=== PATIENT | male | born 1950 | race Caucasian/White ===

== ENCOUNTER 2016-05-07 10:14 | Inpatient (IN) | payer OTHER ==
[2016-05-07] MEDS ORDERED: LIDOCAINE 1% 5 ML SDV ONE (10:22)
[2016-05-07] MEDS ORDERED: ERTAPENEM 1 GM in NS 100 ML IV ONE (10:30)
[2016-05-07] MEDS ORDERED: MIDAZOLAM 2 MG/2 ML VIAL ONE (10:45)
[2016-05-07 10:48] LABS: % IMMATURE GRANULYOCYTES 0.2 % (0.0-1.1); ABSOLUTE IMMATURE GRANULOCYTES 0.02 10^3/uL (0.00-0.10); ADD DIFF? NO; ADD MORPH? NO; ADD SCAN? NO; ATYPICAL LYMPHOCYTE FLAG 0 (0-99); FRAGMENT RBC FLAG 0 (0-99); HEMATOCRIT 45.6 % (40.0-51.0); HEMOGLOBIN 15.4 g/dL (13.7-17.5); LEFT SHIFT FLG 0 (0-99); LIPEMIA HEMOLYSIS FLAG 90 (0-99); MEAN CELL HEMOGLOBIN 29.4 pg (27.9-34.1); MEAN CELL HEMOGLOBIN CONCENTR. 33.8 g/dL (32.4-36.7); PLATELET CLUMPS FLAG 0 (0-99); PLATELET COUNT 226 10^3/uL (150-400); RED BLOOD CELL COUNT 5.24 10^6/uL (4.40-6.38)
[2016-05-07] MEDS ORDERED: LIDOCAINE 1% 5 ML SDV ID PRN (10:52)
[2016-05-07] MEDS ORDERED: LR 1,000 ML IV ONE (10:52)
[2016-05-07] MEDS ORDERED: REMIFENTANIL HCL 1 MG VIAL ONE ×2 (10:55→13:55)
[2016-05-07] MEDS ORDERED: PROPOFOL/EMULSION 500 MG/50 ML BOTTLE IV ONE ×2 (10:56→13:08)
[2016-05-07] MEDS ORDERED: fentaNYL 100 MCG/2 ML INJ ONE ×5 (10:56→15:55)
[2016-05-07] MEDS ORDERED: ONDANSETRON 4 MG/2 ML VIAL ONE (11:03)
[2016-05-07] MEDS ORDERED: DEXAMETHASONE 4 MG/ML VIAL ONE (11:04)
[2016-05-07 11:05] LABS: ANION GAP 11 mEq/L (8-16); CALCIUM 9.1 mg/dL (8.5-10.4); CARBON DIOXIDE 24 mEq/l (22-31); CHLORIDE 106 mEq/L (97-110); CREATININE 1.1 mg/dL (0.7-1.3); GLOMERULAR FILTRATION RATE > 60; GLUCOSE 118 mg/dL (70-100); POTASSIUM 4.3 mEq/L (3.5-5.2); SODIUM 141 mEq/L (134-144)
[2016-05-07] MEDS ORDERED: BUPIVACAINE 0.5% 30 ML SDV ONE (11:05)
[2016-05-07] MEDS ORDERED: LIDOCAINE 2% 5 ML SDV ONE (11:07)
[2016-05-07] MEDS ORDERED: ROCURONIUM 50 MG/5 ML VIAL ONE ×2 (11:08→13:23)
[2016-05-07] MEDS ORDERED: PROPOFOL 200 MG/20 ML VIAL ONE ×2 (13:55→13:56)
[2016-05-07] MEDS ORDERED: ALBUMIN 5% 250 ML BOTTLE IV ONE (14:11)
[2016-05-07] MEDS ORDERED: fentaNYL 250 MCG/5 ML INJ ONE (14:50)
[2016-05-07 14:53] LABS: % IMMATURE GRANULYOCYTES 0.8 % (0.0-1.1); ABSOLUTE IMMATURE GRANULOCYTES 0.09 10^3/uL (0.00-0.10); ADD DIFF? NO; ADD MORPH? NO; ADD SCAN? NO; ATYPICAL LYMPHOCYTE FLAG 0 (0-99); FRAGMENT RBC FLAG 0 (0-99); HEMATOCRIT 37.9 % (40.0-51.0); HEMOGLOBIN 12.8 g/dL (13.7-17.5); LEFT SHIFT FLG 0 (0-99); LIPEMIA HEMOLYSIS FLAG 90 (0-99); MEAN CELL HEMOGLOBIN 30.4 pg (27.9-34.1); MEAN CELL HEMOGLOBIN CONCENTR. 33.8 g/dL (32.4-36.7); MEAN PLATELET VOLUME 9.6 fL (8.7-11.7); PLATELET CLUMPS FLAG 0 (0-99); PLATELET COUNT 223 10^3/uL (150-400); RED BLOOD CELL COUNT 4.21 10^6/uL (4.40-6.38)
[2016-05-07] MEDS ORDERED: GLYCOPYRROLATE 0.2 MG/1 ML VIAL ONE ×2 (14:59)
[2016-05-07] MEDS ORDERED: KETOROLAC 30 MG/1 ML SDV ONE (15:05)
--- NOTE | 2016-05-07 15:16 | POSTOPPROG ---
Post Op Note Date of Operation: 05/07/16 Surgeon: Oc Tony Director Of Music Therapy: Dee Varghese PA-C, TIGIST Oro MS, Mark Clifford MS Anesthesiologist: Jaleel Ojeda Anesthesia: GET(General Endotracheal) Pre-op Diagnosis: Rectal dysplasia, parastomal hernia, Hx of subtotal colectomy for UC Post-op Diagnosis: same Indication: high grade dysplasia of rectal mass, parastomal hernia Procedure: laparascopy, laparotomy, APR, parastomal hernia repair Findings: long thick rectal stump Inf/Abcess present in the surg proc area at time of surgery?: No EBL: 500-1000 Drains: Manolo Guillen Specimen(s): rectal stump to pathology
[2016-05-07] MEDS ORDERED: ONDANSETRON 4 MG/2 ML VIAL IVP PRN (15:17)
[2016-05-07] MEDS ORDERED: NALOXONE HCL 0.4 MG/ML INJ IVP PRN (15:23)
[2016-05-07] MEDS ORDERED: MEPERIDINE 25 MG/ML SYR ONE (15:27)
[2016-05-07] MEDS: HYDROmorphONE/DILAUDID 6 MG/30 ML PCA IV PRN (17:38)
[2016-05-07] MEDS: D5W 1/2 NS W/ 20 KCl/L 1,000 ML IV SCH ×2 (17:43→23:52)
[2016-05-07] MEDS: METOCLOPRAMIDE 10 MG/2 ML VIAL IVP SCH ×2 (17:47→23:53)
[2016-05-07] MEDS: ACETAMINOPHEN 325 MG TAB PO PRN (23:52)
[2016-05-08] MEDS: HYDROmorphONE/DILAUDID 6 MG/30 ML PCA IV PRN ×5 (00:35→23:35)
[2016-05-08] MEDS: METOCLOPRAMIDE 10 MG/2 ML VIAL IVP SCH ×4 (05:02→23:25)
[2016-05-08 05:19] LABS: HEMOGLOBIN 10.6 g/dL (13.7-17.5)
[2016-05-08 05:38] LABS: ANION GAP 9 mEq/L (8-16); CALCIUM 7.6 mg/dL (8.5-10.4); CARBON DIOXIDE 22 mEq/l (22-31); CHLORIDE 105 mEq/L (97-110); CREATININE 1.1 mg/dL (0.7-1.3); GLOMERULAR FILTRATION RATE > 60; GLUCOSE 137 mg/dL (70-100); POTASSIUM 4.7 mEq/L (3.5-5.2); SODIUM 136 mEq/L (134-144)
[2016-05-08] MEDS: D5W 1/2 NS W/ 20 KCl/L 1,000 ML IV SCH ×3 (06:20→22:11)
--- NOTE | 2016-05-08 09:50 | SOAPPROG ---
SOAP Progress Note Assessment/Plan: Assessment/Plan: 65 Y M s/p APR, parastomal hernia reapir, POD#0. Fever overnight. Now resolved. Seen by Dr. Tony late last night for this. OOB. IS. +ileostomy function and bowel sounds. No ileus. Clear diet today. May start PO pain meds PRN. Wean from TECHNICAL SALES REPRESENTATIVE as tolerated. Continue mar cath x 1 week for bladder decompression given proximity and adhesions of rectal stump to bladder. Continue IV abx for possible contamination. S: Waves of pain. TECHNICAL SALES REPRESENTATIVE helping. O: alert, nad ctab anteriorly rrr +BS, abd softly bloated, obese. ileostomy pink, +stool contents, wound well dressed without saturation. 05/08/16 09:44 Objective: Vital Signs Temp Pulse Resp BP Pulse Ox 36.8 C 77 12 108/59 L 94 05/08/16 07:14 05/08/16 07:14 05/08/16 07:14 05/08/16 07:14 05/08/16 07:14 Laboratory Results 05/08/16 04:17 05/08/16 04:17 05/07/16 05/08/16 05/09/16 05:59 05:59 05:59 Intake Total 1800 Output Total 2370 Balance -570 ICD10 Worksheet Patient Problems: Problems Problem Status Onset Dysplastic polyp of rectum Acute - ICD10 Problem Qualifiers (1) Dysplastic polyp of rectum
[2016-05-08] MEDS: ACETAMINOPHEN 325 MG TAB PO PRN ×2 (18:31→23:25)
[2016-05-09] MEDS: METOCLOPRAMIDE 10 MG/2 ML VIAL IVP SCH ×3 (05:18→18:05)
[2016-05-09] MEDS: ACETAMINOPHEN 325 MG TAB PO PRN ×2 (05:18→22:15)
[2016-05-09] MEDS: D5W 1/2 NS W/ 20 KCl/L 1,000 ML IV SCH ×3 (06:07→21:25)
[2016-05-09] MEDS: HYDROmorphONE/DILAUDID 6 MG/30 ML PCA IV PRN ×3 (06:14→22:18)
[2016-05-09] MEDS ORDERED: traZODone 50 MG TAB PO PRN (07:59)
[2016-05-09] MEDS ORDERED: METAXALONE 800 MG TAB PO PRN (07:59)
[2016-05-09] MEDS ORDERED: ZOLPIDEM TARTRATE 5 MG TAB PO PRN (07:59)
[2016-05-09] MEDS ORDERED: DICYCLOMINE 10 MG CAP PO PRN ×2 (07:59→09:32)
[2016-05-09] MEDS ORDERED: AMITRIPTYLINE HCL 50 MG TAB PO PRN (07:59)
--- NOTE | 2016-05-09 08:07 | SOAPPROG ---
SOAP Progress Note Assessment/Plan: Assessment/Plan: # fever - white count not done today, reordered cbc - patient doing okay this morning, will monitor temperature for now OK to advance to regular diet may use his cpap for sleep S: waking up every 15 mins during night (d/t sleep apnea, not wearing cpap) pain well controlled, (-) n/v (-) chest pain Had fever last night til early this morning (37.9 this morning) Other than that no other complaints O: Gen: awake, concscious, coherent HEENT: mmm chest: ctab b/l Abd: wounds clean and dry, (+) bowel on ostomy bag, non-tender Ext: (?) edema 05/09/16 08:03 05/09/16 08:09 05/09/16 08:10 05/09/16 08:12 05/09/16 08:13 Objective: Vital Signs Temp Pulse Resp BP Pulse Ox 37.9 C 80 18 116/59 L 95 05/09/16 05:59 05/09/16 06:00 05/09/16 06:00 05/09/16 06:00 05/09/16 06:00 Laboratory Results 05/09/16 04:44 05/08/16 04:17 05/08/16 05/09/16 05/10/16 05:59 05:59 05:59 Intake Total 1800 550 Output Total 1550 4237 Zafhpog -279 -5318 ICD10 Worksheet Patient Problems: Problems Problem Status Onset Dysplastic polyp of rectum Acute
[2016-05-09] MEDS: ENOXAPARIN 40 MG/0.4 ML SYR SC SCH (08:41)
[2016-05-09] MEDS: CYANO/VITAMIN B12 1000 MCG TAB PO SCH (08:41)
[2016-05-09] MEDS ORDERED: NON-FORMULARY NEW DRUG (Metformin Hcl [Metformin Hcl Er] 500 MG) PO SCH (09:00)
[2016-05-09 09:06] LABS: % IMMATURE GRANULYOCYTES 0.4 % (0.0-1.1); ABSOLUTE IMMATURE GRANULOCYTES 0.03 10^3/uL (0.00-0.10); ADD DIFF? NO; ADD MORPH? NO; ADD SCAN? NO; ATYPICAL LYMPHOCYTE FLAG 0 (0-99); FRAGMENT RBC FLAG 0 (0-99); HEMATOCRIT 30.8 % (40.0-51.0); HEMOGLOBIN 9.9 g/dL (13.7-17.5); LEFT SHIFT FLG 0 (0-99); LIPEMIA HEMOLYSIS FLAG 80 (0-99); MEAN CELL HEMOGLOBIN 30.1 pg (27.9-34.1); MEAN CELL HEMOGLOBIN CONCENTR. 32.1 g/dL (32.4-36.7); MEAN CELL VOLUME 93.6 fL (81.5-99.8); MEAN PLATELET VOLUME 9.6 fL (8.7-11.7); PLATELET CLUMPS FLAG 0 (0-99); PLATELET COUNT 180 10^3/uL (150-400); RED BLOOD CELL COUNT 3.29 10^6/uL (4.40-6.38); RED CELL DISTRIBUTION WIDTH 13.4 % (11.5-15.2)
[2016-05-09] MEDS: BLUE PO SCH (10:54)
[2016-05-09] MEDS: MTH PO SCH (10:54)
[2016-05-09] MEDS: SOD PHOS PO SCH (10:54)
[2016-05-09] MEDS: PHEN PO SCH (10:54)
[2016-05-09] MEDS: HYOS PO SCH (10:54)
--- NOTE | 2016-05-09 23:45 | SOAPPROG ---
SOAP Progress Note Assessment/Plan: Assessment: TEMP DOWN/ WOUND OK/ STOMA OK/ ABD SOFT AND NONTENDER/ TOLERATING PO WELL PATH PENDING Plan:ADVANCE DIET/ CONTINUE RESP RX 05/09/16 23:44 Objective: Vital Signs Temp Pulse Resp BP Pulse Ox 38.2 C 88 14 118/63 95 05/09/16 20:00 05/09/16 20:00 05/09/16 20:00 05/09/16 20:00 05/09/16 20:00 Laboratory Results 05/09/16 04:44 05/08/16 04:17 05/08/16 05/09/16 05/10/16 05:59 05:59 05:59 Intake Total 8845 228 2761 Output Total 8676 1884 1538 Balance -570 -2930 -5 ICD10 Worksheet Patient Problems: Problems Problem Status Onset Dysplastic polyp of rectum Acute
[2016-05-10] MEDS: METOCLOPRAMIDE 10 MG/2 ML VIAL IVP SCH ×4 (00:43→18:13)
[2016-05-10] MEDS: HYDROmorphONE/DILAUDID 6 MG/30 ML PCA IV PRN ×3 (06:24→22:44)
[2016-05-10] MEDS: metFORMIN SR 500 MG TAB PO SCH (08:50)
[2016-05-10] MEDS: CYANO/VITAMIN B12 1000 MCG TAB PO SCH (08:50)
[2016-05-10] MEDS: ENOXAPARIN 40 MG/0.4 ML SYR SC SCH (08:51)
[2016-05-10] MEDS: PHEN PO SCH (08:51)
[2016-05-10] MEDS: HYOS PO SCH (08:51)
[2016-05-10] MEDS: MTH PO SCH (08:51)
[2016-05-10] MEDS: BLUE PO SCH (08:51)
[2016-05-10] MEDS: SOD PHOS PO SCH (08:51)
--- NOTE | 2016-05-10 09:31 | SOAPPROG ---
SOAP Progress Note Assessment/Plan: Assessment/Plan: # fever resolved Plan Home in 1-2 days, pt trying to set up home support of friends as he lives alone , awaiting hospital bed for home S: slept better last night pain well controlled, (-) n/v (-) chest pain Had fever last night til early this morning (37.9 this morning) Other than that no other complaints O: Gen: awake, concscious, coherent HEENT: mmm chest: ctab b/l Abd: wounds clean and dry, (+) bowel on ostomy bag, non-tender 05/09/16 08:03 05/09/16 08:09 05/09/16 08:10 05/09/16 08:12 05/09/16 08:13 05/10/16 09:29 Objective: Vital Signs Temp Pulse Resp BP Pulse Ox 36.9 C 78 14 134/59 H 94 05/10/16 08:00 05/10/16 08:00 05/10/16 08:00 05/10/16 08:00 05/10/16 08:00 Laboratory Results 05/09/16 04:44 05/08/16 04:17 05/09/16 05/10/16 05/11/16 05:59 05:59 05:59 Intake Total 550 3019 800 Output Total 5118 7192 1102 Balance -2930 -291 -305 ICD10 Worksheet Patient Problems: Problems Problem Status Onset Dysplastic polyp of rectum Acute
[2016-05-10] MEDS: D5W 1/2 NS W/ 20 KCl/L 1,000 ML IV SCH (11:57)
[2016-05-10] MEDS: CYCLOBENZAPRINE 10 MG TAB PO SCH ×2 (15:34→21:29)
[2016-05-10] MEDS: ACETAMINOPHEN 325 MG TAB PO PRN (18:21)
[2016-05-11] MEDS: METOCLOPRAMIDE 10 MG/2 ML VIAL IVP SCH ×5 (00:01→22:40)
--- NOTE | 2016-05-11 07:40 | SOAPPROG ---
SOAP Progress Note Assessment/Plan: Assessment: TEMP DOWN/ WOUND OK/ STOMA OK/ ABD SOFT AND NONTENDER/ TOLERATING PO WELL PATH PENDING Plan:ADVANCE DIET/ CONTINUE RESP RX 05/09/16 23:44 05/11/16 07:38 steadily improving/ afebrile/ wounds both clean/ ostomy function good/ path still pending/ home 1-2 days Objective: Vital Signs Temp Pulse Resp BP Pulse Ox 37.4 C 79 16 96/50 L 92 05/11/16 07:22 05/11/16 07:22 05/11/16 07:22 05/11/16 07:22 05/11/16 07:22 Laboratory Results 05/09/16 04:44 05/08/16 04:17 05/10/16 05/11/16 05/12/16 05:59 05:59 06:59 Intake Total 6481 0157 Output Total 5416 5225 300 Balance -291 -97 -300 ICD10 Worksheet Patient Problems: Problems Problem Status Onset Dysplastic polyp of rectum Acute
[2016-05-11] MEDS: ACETAMINOPHEN 325 MG TAB PO PRN (07:51)
[2016-05-11] MEDS: CYCLOBENZAPRINE 10 MG TAB PO SCH ×3 (09:00→22:08)
[2016-05-11] MEDS: PHEN PO SCH (09:00)
[2016-05-11] MEDS: CYANO/VITAMIN B12 1000 MCG TAB PO SCH (09:00)
[2016-05-11] MEDS: ENOXAPARIN 40 MG/0.4 ML SYR SC SCH (09:00)
[2016-05-11] MEDS: SOD PHOS PO SCH (09:00)
[2016-05-11] MEDS: metFORMIN SR 500 MG TAB PO SCH (09:00)
[2016-05-11] MEDS: BLUE PO SCH (09:00)
[2016-05-11] MEDS: HYOS PO SCH (09:00)
[2016-05-11] MEDS: MTH PO SCH (09:00)
[2016-05-11] MEDS: OXYCODONE/APAP 5/325 TAB PO PRN ×4 (09:59→22:40)
[2016-05-11] MEDS: KETOROLAC 15 MG/1 ML SDV IVP SCH ×3 (11:44→22:40)
[2016-05-12] MEDS: OXYCODONE/APAP 5/325 TAB PO PRN ×5 (03:05→21:06)
[2016-05-12] MEDS: METOCLOPRAMIDE 10 MG/2 ML VIAL IVP SCH ×4 (05:55→23:41)
[2016-05-12] MEDS: KETOROLAC 15 MG/1 ML SDV IVP SCH ×4 (05:56→23:41)
[2016-05-12 08:11] LABS: % IMMATURE GRANULYOCYTES 0.6 % (0.0-1.1); ABSOLUTE IMMATURE GRANULOCYTES 0.03 10^3/uL (0.00-0.10); ADD DIFF? NO; ADD MORPH? NO; ADD SCAN? NO; ATYPICAL LYMPHOCYTE FLAG 30 (0-99); FRAGMENT RBC FLAG 0 (0-99); HEMATOCRIT 29.4 % (40.0-51.0); HEMOGLOBIN 9.8 g/dL (13.7-17.5); LEFT SHIFT FLG 0 (0-99); LIPEMIA HEMOLYSIS FLAG 80 (0-99); MEAN CELL HEMOGLOBIN 29.5 pg (27.9-34.1); MEAN CELL HEMOGLOBIN CONCENTR. 33.3 g/dL (32.4-36.7); MEAN CELL VOLUME 88.6 fL (81.5-99.8); MEAN PLATELET VOLUME 8.8 fL (8.7-11.7); PLATELET CLUMPS FLAG 0 (0-99); PLATELET COUNT 258 10^3/uL (150-400); RED BLOOD CELL COUNT 3.32 10^6/uL (4.40-6.38); RED CELL DISTRIBUTION WIDTH 13.2 % (11.5-15.2)
[2016-05-12 08:40] LABS: ANION GAP 11 mEq/L (8-16); CALCIUM 8.2 mg/dL (8.5-10.4); CARBON DIOXIDE 24 mEq/l (22-31); CHLORIDE 103 mEq/L (97-110); CREATININE 0.9 mg/dL (0.7-1.3); GLOMERULAR FILTRATION RATE > 60; GLUCOSE 97 mg/dL (70-100); POTASSIUM 4.6 mEq/L (3.5-5.2); SODIUM 138 mEq/L (134-144)
[2016-05-12] MEDS: CYCLOBENZAPRINE 10 MG TAB PO SCH ×3 (08:40→21:06)
[2016-05-12] MEDS: CYANO/VITAMIN B12 1000 MCG TAB PO SCH (08:40)
[2016-05-12] MEDS: metFORMIN SR 500 MG TAB PO SCH (08:40)
[2016-05-12] MEDS: ENOXAPARIN 40 MG/0.4 ML SYR SC SCH (08:41)
[2016-05-12] MEDS: HYOS PO SCH (08:43)
[2016-05-12] MEDS: MTH PO SCH (08:43)
[2016-05-12] MEDS: BLUE PO SCH (08:43)
[2016-05-12] MEDS: PHEN PO SCH (08:43)
[2016-05-12] MEDS: SOD PHOS PO SCH (08:43)
--- NOTE | 2016-05-12 11:17 | GOP ---
[f rep st] OPERATIVE REPORT DATE OF OPERATION: 05/07/2016 SURGEON: Oc Tony MD EMAIL CAMPAIGN SPECIALIST: Dee Varghese ANESTHESIOLOGIST: Dr. Ojeda PREOPERATIVE DIAGNOSIS: High-grade rectal dysplasia in a parastomal hernia. POSTOPERATIVE DIAGNOSIS: High-grade rectal dysplasia in a parastomal hernia. PROCEDURE PERFORMED: Laparoscopy, laparotomy with abdominoperineal resection, peristomal hernia rep air. FINDINGS: The patient was found to have a thick rectal stump and diffuse abdominal adhesions and a parastomal hernia. INDICATIONS: The patient has a history of ulcerative colitis and had a subtotal colectomy, and has now got high-grade dysplasia on biopsies of his rectal stump. DESCRIPTION OF PROCEDURE: Patient taken to the operating room, where he received satisfactory gener al endotracheal anesthesia by Dr. Ojeda, he was placed in the supine position in low stirrups, and prepped and draped in the usual sterile fashion. A short incision was made in his left upper quadrant and a Veress needle was inserted. Pneumoperito neum was established. Trocar was introduced. Adequate visualization was obtained. There were diff use marked adhesions in the lower abdomen. Additional trocar sites were created. Some of the adhes ions were taken down, but that was quite an extensive amount of adhesions to the rectal stump preven ting good laparoscopic access. It was elected to change to open procedure at that point. A lower abdominal midline incision was made through his old scar and the abdomen was carefully enter ed. Adhesiolysis ensued, taking down multiple loops of small bowel both from the pelvis, as well as from the peristomal hernia. The small bowel was completely freed up out of the pelvis. Parastomal hernia was then repaired using #1 Ethibond brlqhm-nt-nbien sutures, cinching down the parastomal her diane. The rectal stump was then mobilized. Starting posteriorly, the presacral space was entered and the d issection extended well down past the tip of the coccyx. Lateral stalks were divided bilaterally wi th care to avoid injury to the ureters. This was done with the Harmonic Scalpel primarily. Anterio r dissection then freed up the rectum from behind the prostate and the seminal vesicles down as far possible anteriorly. This was done with some blunt and sharp dissection, and the use of the Harmoni c Scalpel. After the upper dissection was maxed out, we turned to the perineal area. The rectum was sewn shut with a nylon suture a and an elliptical skin incision was made around the a nus. Dissection carried down through the subcutaneous tissue with electrocautery down to the levato r muscles. These were then divided with electrocautery as the posterior rectal space was entered. Communication with the abdominal cavity was established. Continuous circumferential division of the levator muscles. The colon was then brought out through this opening and inverted, and the remaini ng anterior dissection was completed until the specimen could be removed. Hemostasis was then thoro ughly obtained with electrocautery. The wound was irrigated and washed out. Hemostasis was assured. The peritoneum was closed with a r unning 2-0 Vicryl for the subcutaneous tissue and a running 3-0 Prolene mattress suture for the skin . The wound was infiltrated with 0.5% Marcaine. The wound was closed and drapes were changed, and the abdominal cavity was evaluated. Hemostasis wa s assured from that point. The wound was copiously irrigated. A 19-[place] SHARON drain was brought out through a separate stab incision and placed in the pelvis, and the peritoneum was closed over this drain with a running 3-0 Vicryl suture. The abdomen was then closed with a running #1 PDS suture, r einforced periodically with #1 Vicryl interrupted sutures. The wound was infiltrated with 0.5% Tigre kenroy. Subcu was closed with a running 2-0 Vicryl suture and the skin was closed with skin jeanna. Trocar sites were also closed with skin jeanna and infiltrated with 0.5% Marcaine. He tolerated the procedure quite well. Blood loss was less than 1000 cc. There were no complicatio ns. He was taken to the recovery room in good condition. Final path is pending. /[id number]/MODL
[2016-05-13] MEDS: METOCLOPRAMIDE 10 MG/2 ML VIAL IVP SCH ×2 (05:17→11:39)
[2016-05-13] MEDS: KETOROLAC 15 MG/1 ML SDV IVP SCH ×3 (05:18→11:04)
[2016-05-13] MEDS: OXYCODONE/APAP 5/325 TAB PO PRN (05:19)
[2016-05-13 07:27] VITALS: BP 127/70; PULSE 85; RESP 18; TEMP 98.1; O2SAT 96
[2016-05-13] MEDS: SOD PHOS PO SCH (08:17)
[2016-05-13] MEDS: PHEN PO SCH (08:17)
[2016-05-13] MEDS: BLUE PO SCH (08:17)
[2016-05-13] MEDS: MTH PO SCH (08:17)
[2016-05-13] MEDS: HYOS PO SCH (08:17)
[2016-05-13] MEDS: ENOXAPARIN 40 MG/0.4 ML SYR SC SCH (08:18)
[2016-05-13] MEDS: CYANO/VITAMIN B12 1000 MCG TAB PO SCH (08:18)
[2016-05-13] MEDS: CYCLOBENZAPRINE 10 MG TAB PO SCH (08:18)
[2016-05-13] MEDS: metFORMIN SR 500 MG TAB PO SCH (08:18)
--- NOTE | 2016-05-13 11:01 | PDIAF ---
- Diagnosis Diagnosis: s/p APR surgery Code Status: Full Code - Medication Management Discharge Medications: Medications to Continue on Transfer Amitriptyline HCl [Elavil 50 mg (*)] 50 mg PO HS PRN 05/07/16 [Last Taken Unknown] Cholecalciferol Vit D3 [Vitamin D3 (*)] 1,000 units PO DAILY 05/07/16 [Last Taken 05/07/16] Cyanocobalamin [Vitamin B12 (*)] 1,000 mcg PO DAILY 05/07/16 [Last Taken ] Dicyclomine [Bentyl 10 MG (*)] 10 mg PO QID PRN MDD SPASMS 05/07/16 [Last Taken Unknown] Metaxalone [METAXALONE] 800 mg PO TID PRN 05/07/16 [Last Taken Unknown] Metformin HCl [Metformin HCl ER] 500 mg PO DAILY 05/07/16 [Last Taken 05/06/16] Mth/Me Blue/Sod Phos/Phen/Hyos [Uribel Capsule] 1 each PO DAILY 05/07/16 [Last Taken 05/07/16] traZODone [traZODONE 50MG (*)] 50 mg PO HS PRN 05/07/16 [Last Taken Unknown] Acetaminophen [Tylenol 325mg (*)] 650 mg PO Q4 PRN #0 tab 05/13/16 [Last Taken Unknown] Cyclobenzaprine [Flexeril 10 MG (*)] 10 mg PO TID #45 tab 05/13/16 [Last Taken Unknown] Zolpidem Tartrate [Ambien 5MG (*)] 10 mg PO HS PRN #0 tab 05/13/16 [Last Taken Unknown] oxyCODONE IR [Oxycodone Ir (*)] 5 mg PO Q4 #90 tab 05/13/16 [Last Taken Unknown] Discharge Medications: Refer to the Discharge Home Medication list for PRN reason. - Orders Services needed: Home Care, Registered Nurse, Physical Therapy, Occupational Therapy Home Care Face to Face: I certify that this patient was under my care and that I had the required [id number] encounter meeting the encounter requirements on the discharge day. My findings support the fact that the patient is homebound as defined in CMS Chapter 7 Medicare Benefits Manual 30.1.1, The condition of the patient is such that there exists a normal inability to leave home and consequently, leaving home would require a considerable and taxing effort. Diet Recommendation: no restrictions on diet Diet Texture: Regular Texture Diet Wound Care Instructions: will need sutures out of perineum in approx 2 weeks, will be done in Dr Tony office. Area should be inspected every few days for any sign of infection. - Follow Up Care Current Providers and Referrals: Lyric Kumar MD [Primary Care Provider] -
--- NOTE | 2016-05-13 15:34 | GDS ---
[f rep st] DISCHARGE SUMMARY REASON FOR ADMISSION: Surgery for rectal dysplasia and parastomal hernia. HOSPITAL COURSE: The patient is a very pleasant 65-year-old male, well-known to our service who cam e in for an elective surgery as he was noted to have rectal dysplasia on recent colonoscopy. He has history of subtotal colectomy for ulcerative colitis in the past. He also has a parastomal hernia. He underwent surgery on 05/07/[address] Tony, laparotomy with abdominal peroneal resection an d parastomal hernia repair. Patient's hospital course was remarkable for some fever initially over the first 1-2 days, believed to be from atelectasis. His fever resolved with further mobilization. He was discharged today with instructions to follow up in our office in approximately 7-10 days. He has sutures in his perineum that will eventually need to be removed after the 3-week loy. He was discharged with oxycodone and Flexeril for pain. His pathology is still pending from surgery at the time of this dictation. He was also discharged back to his regular home care with instructions to watch for signs of infections over the perineum wound. /[id number]/MODL
--- NOTE | 2016-05-16 16:15 | PQFORM ---
PHYSICIAN QUERY FORM Needs Your Response This query form is being sent to you to assure this patient record is coded properly. Please respond to the question below: SHOWCASE MAKER QUESTION: Dr. Tony, The Pathology report was not available at the time the discharge summary was dictated. Do you agree with the pathology report specifying the high grade rectal dysplasia as invasive mucinous adenocarcinoma of the rectum, as well as the additional diagnosis of chronic ulcerative proctocolitis? Yes No Other Clinically Undetermined Many thanks, CONRAD Rojas [facility]/Coding Department INSTRUCTIONS FOR RESPONSE: Answer question by clicking on the "Edit Document" button. Move cursor to area below the stars. When complete, hit "Save." Click on the "Sign" button, then click "Sign" again. Type in your PIN and hit "Enter." yes MTDD
== END 2016-05-13 12:26 | disposition home health service (06) | DRG 330 ==
LOC: F3N 10:14 → F3E 14:06
PROVIDERS: ADMIT Surgery; ATTEND Surgery
PROC: 0WQF0ZZ Repair Abdominal Wall, Open Approach (ICD-10-PCS; principal; 2016-05-07 12:15)
PROC: 0DBN0ZZ Excision of Sigmoid Colon, Open Approach (ICD-10-PCS; principal; 2016-05-07 12:15)
PROC: 0DTQ0ZZ Resection of Anus, Open Approach (ICD-10-PCS; principal; 2016-05-07 12:15)
PROC: 0DNE0ZZ Release Large Intestine, Open Approach (ICD-10-PCS; principal; 2016-05-07 12:15)
PROC: 0WJG4ZZ Inspection of Peritoneal Cavity, Percutaneous Endoscopic Approach (ICD-10-PCS; principal; 2016-05-07 12:15)
PROC: 0DTP0ZZ Resection of Rectum, Open Approach (ICD-10-PCS; principal; 2016-05-07 12:15)
DX: C20 Malignant neoplasm of rectum (principal); K51.314 Ulcerative (chronic) rectosigmoiditis with abscess; K43.5 Parastomal hernia without obstruction or gangrene; Z53.31 Laparoscopic surgical procedure converted to open procedure; K66.0 Peritoneal adhesions (postprocedural) (postinfection); Z93.2 Ileostomy status; G47.00 Insomnia, unspecified; G47.33 Obstructive sleep apnea (adult) (pediatric); E66.09 Other obesity due to excess calories; Z68.35 Body mass index [BMI] 35.0-35.9, adult
CPT/HCPCS: 97110-GP; 97116-GP; 97162-GP; 97165-GO; 97530-GO; 97530-GP; 97535-GO; G8978-GP-CK; G8979-GP-CI; G8987-GO-CL; G8988-GO-CI; J1100; J1170; J1335; J1650; J1885; J2250; J2405; J2704; J2765; J3010; P9041

== ENCOUNTER 2016-05-30 15:26 | Inpatient (IN) | payer OTHER ==
[2016-05-30] MEDS ORDERED: NS 1,000 ML IV ONE (18:17)
[2016-05-30] MEDS ORDERED: ACETAMINOPHEN 325 MG TAB PO PRN (18:17)
[2016-05-30] MEDS ORDERED: AMITRIPTYLINE HCL 25 MG TAB PO PRN (19:06)
--- NOTE | 2016-05-30 20:21 | GHP ---
[f rep st] HISTORY AND PHYSICAL DATE OF ADMISSION: 05/30/2016 CHIEF COMPLAINT: Acute kidney injury. HISTORY OF PRESENT ILLNESS: A 65-year-old male with a history of ulcerative colitis and subtotal co lectomy who presents a couple-weeks postop from abdominal surgery with Dr. Tony for high-grade rect al dysplasia and a parastomal hernia. The patient describes an uncomplicated postop recovery time. Discharged home on 05/13/2016 with pain medications. Tolerating p.o. He describes at home difficu lty tolerating advancing oral intake with minimal solid meals since his leaving the hospital. Denie s any changes in his bowel habits. Reports doing the best he could taking fluids. But did experienc e intermittent nausea and what he described as retching nonproductive of food products because he pearce d not eaten much. The patient additionally was experiencing difficulty anticipating his urine strea m, and said he would urinate without expecting it and had a difficult time stopping stream if it ini tiated. He denied any known hematuria, denied any changes in his colostomy output. Endorsed interm ittent fevers when he was first discharged that progressed to nearly daily fevers that led to him fr equently needing to change shirts or sheets because he was sweating through them. He then started n oticing difficulty with shortness of breath with minimal exertion and activities, and then increasin g lower extremity edema. The patient presented today for consultation with outpatient oncology team . Basic lab showed that he had a new acute kidney injury. He was, therefore, direct-admitted to [facility] for evaluation. Upon arrival to the floor, he was endorsing some abdominal discomfort, p ersistent nausea. No vomiting. Lower extremity swelling. He denies chest pain. He reports some s hortness of breath, but is lying flat in bed comfortably, and endorses continued difficulty with his urinary stream. PAST MEDICAL HISTORY: 1. Ulcerative colitis, status post subtotal colectomy. 2. Recurrent kidney stones, status post colectomy with multiple surgical excisions of stones. 3. Prediabetes. 4. Insomnia. SOCIAL HISTORY: Patient lives alone. Denies tobacco, alcohol or illicit drugs. FAMILY HISTORY: Negative for kidney stones. Positive for UC. ADVANCED DIRECTIVES: Patient is full cor, full tube. REVIEW OF SYSTEMS: A 10-point review of systems is negative with the exception of that reported in the HPI. PHYSICAL EXAMINATION: VITAL SIGNS: Blood pressure 148/69, heart rate 88, respiratory rate 16, satu rating 91% on room air, 37.7. GENERAL: This is a pleasant middle-age male, lying flat in bed. CAITLIN NT: Notable for moist mucous membranes. Eyes are negative for any icterus. CARDIAC: Patient is r egular rate and rhythm. PULMONARY: Good respiratory effort. Clear to auscultation bilaterally. G ASTROINTESTINAL: The patient has positive bowel sounds. Abdomen is distended, does not have signif icant tenderness on palpation. His surgical scars are healing beautifully. His ostomy appears to h ave normal output. MUSCULOSKELETAL: Notable for 2+ pitting lower extremity edema which is symmetri c. SKIN: Negative for any rashes. NEUROLOGIC: He is alert and oriented x3. PSYCHIATRIC: He is pleasant and cooperative on interview and exam. DATA: White count 11.2, baseline appears to be 4-6. Hematocrit is 30.1, near baseline at discharge . Platelet count 580 above discharge. INR is 1.1. Potassium is 5.6. Creatinine is 3.5, baseline is 0.9. Blood glucose 117. Alk phos 135. Chest x-ray from his previous hospitalization which I personally reviewed and interpreted shows hypo ventilation and bibasilar opacities consistent with atelectasis. Ultrasound of the abdomen obtained from the Oncology Clinic shows possible minimal left hydronephros is, a very large bladder volume estimated at greater than 1000 mL. Bilateral lower extremity ultrasounds are negative for deep venous thrombosis. ASSESSMENT AND PLAN: This is a 65-year-old male who underwent recent surgical debridement for high- grade rectal dysplasia and a parastomal hernia repair who presents with a new acute kidney injury. 1. Acute kidney injury. Suspect this may be multifactorial, patient does describe decreased oral i ntake at home. However, ultrasound imaging of his bladder shows pronounced distention of his urinar y bladder consistent with severe retention. It is very possible that his narcotics at disposition c aused retention. Patient additionally has history of recurrent kidney stones. However, imaging is inconsistent with a bilateral obstructive process which would really be required to cause a creatini ne elevation from 0.9 to 3.5. We will begin with placing a Ching catheter and effectively draining the patient's bladder. Will fluid resuscitate with normal saline overnight and hold all medications that require renal dosing, and recheck his renal function in the morning. I am optimistic it will be improved. If it is not, then we need to consider other possible etiologies for his acute kidney injury including possible complication related to an intra-abdominal surgery although my suspicion f or this is quite low. 2. Acute leukocytosis. The patient has clearly had urinary retention, subjective fevers, very poss ibly has urinary tract infection. Will send his urine for analysis and culture. Additionally order ing blood cultures to rule out any blood-borne infection. If his urine is abnormal, I will empirica lly treat until we have culture data back. 3. High-grade rectal dysplasia. The patient had biopsies obtained that were consistent with an inv asive carcinoma. The patient will be followed by Oncology post disposition from this acute hospital ization. 4. Ulcerative colitis, status post subtotal colectomy. Patient's ostomy output appears normal at t his time. We will follow him clinically. 5. Prediabetes. We will hold the patient's metformin in the setting of acute kidney injury, and mo nitor his blood sugars. We can cover with sliding scale insulin as needed. 6. Hyperkalemia secondary to acute kidney injury. We will follow his potassium levels post Ching c atheter and hydration. Optimistic will see improvement. Will order an EKG and telemetry monitoring to rule out any acute changes. 7. Anemia, this appears chronic. The patient does not have acute losses. Will monitor daily. 8. Thrombocytosis, suspect this is reactive to his acute urinary process. Will follow after relief of the obstruction and treatment of any underlying infection. 9. Prophylaxis with Lovenox. 10. Diet as he can tolerate. 11. Disposition: I am expecting greater than 2 midnights as the patient is presenting with acute k idney injury and hyperkalemia requiring hydration and close monitoring. I have discussed the case w johanna Stevens from oncology clinic. Patient will be directly admitted to the medical floor for ev aluation and care. /[id number]/MODL
[2016-05-30] MEDS: ONDANSETRON 4 MG/2 ML VIAL IVP PRN (20:29)
[2016-05-30 21:11] LABS: COLOR YELLOW; LEUKOCYTE ESTERASE,URINE NEGATIVE (NEGATIVE); NITRITE,URINE NEGATIVE (NEGATIVE)
[2016-05-30] MEDS: ZOLPIDEM TARTRATE 5 MG TAB PO PRN ×2 (21:39→21:46)
[2016-05-30] MEDS: HEPARIN 5,000 UNIT/0.5 ML SYR SC SCH (21:40)
[2016-05-31] MEDS: ZOLPIDEM TARTRATE 5 MG TAB PO PRN (00:29)
[2016-05-31] MEDS: HYDROCODONE/APAP 5/325 TAB PO PRN ×6 (00:29→21:57)
[2016-05-31] MEDS: HEPARIN 5,000 UNIT/0.5 ML SYR SC SCH ×3 (05:08→21:56)
[2016-05-31] MEDS: NS 1,000 ML IV SCH ×2 (05:09→15:17)
[2016-05-31 05:25] LABS: % IMMATURE GRANULYOCYTES 0.5 % (0.0-1.1); ABSOLUTE IMMATURE GRANULOCYTES 0.04 10^3/uL (0.00-0.10); ADD DIFF? NO; ADD MORPH? NO; ADD SCAN? NO; ATYPICAL LYMPHOCYTE FLAG 10 (0-99); FRAGMENT RBC FLAG 0 (0-99); HEMATOCRIT 26.3 % (40.0-51.0); HEMOGLOBIN 8.1 g/dL (13.7-17.5); LEFT SHIFT FLG 0 (0-99); LIPEMIA HEMOLYSIS FLAG 80 (0-99); MEAN CELL HEMOGLOBIN 27.5 pg (27.9-34.1); MEAN CELL HEMOGLOBIN CONCENTR. 30.8 g/dL (32.4-36.7); MEAN CELL VOLUME 89.2 fL (81.5-99.8); MEAN PLATELET VOLUME 9.1 fL (8.7-11.7); PLATELET CLUMPS FLAG 0 (0-99); PLATELET COUNT 503 10^3/uL (150-400); RED BLOOD CELL COUNT 2.95 10^6/uL (4.40-6.38); RED CELL DISTRIBUTION WIDTH 16.2 % (11.5-15.2)
[2016-05-31 05:34] LABS: ANION GAP 10 mEq/L (8-16); CALCIUM 7.7 mg/dL (8.5-10.4); CARBON DIOXIDE 22 mEq/l (22-31); CHLORIDE 109 mEq/L (97-110); GLOMERULAR FILTRATION RATE 33; GLUCOSE 107 mg/dL (70-100); SODIUM 141 mEq/L (134-144)
--- NOTE | 2016-05-31 08:20 | HOSPPROG ---
Hospitalist Progress Note Assessment/Plan: Patient is a 65-year-old male who presented to the emergency room with new acute kidney injury. 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 Today is my 1st encounter with the patient. Chart reviewed. * Acute renal failure - multifactorial /likely due to poor intake, urinary retention - creatinine has improved * hyperkalemia - resolved with hydration *acute urinary retention -patient doesn't believe this is secondary from narcotics -has had this in the past and sees Dr Go/ urology to see later today -reviewed his ua/ doesn't have a UTI * acute leukocytosis -improved *anemia -will follow *lower extremity swelling -ultrasound shows no dvt -suspect it is r/t recent surgery and renal failure -nursing staff to [facility] * ulcerative colitis - status post subtotal colectomy * prediabetes - metformin on hold due to the above * high grade rectal dysplasia - further follow up with Oncology *DVT prophylaxis: Heparin sq *Plan: Patient will require another midnight stay, needs close monitoring of renal function (still elevated), urology to see, message left to notify surgical team of patient's admission, repeat labs in a.m. Subjective: Raffi is feeling slowly better. Objective: Vital Signs Temp Pulse Resp BP Pulse Ox 36.9 C 69 18 128/77 H 98 05/31/16 07:55 05/31/16 07:55 05/31/16 07:55 05/31/16 07:55 05/31/16 07:55 Laboratory Results 05/31/16 04:39 05/31/16 04:39 05/30/16 05/31/16 06/01/16 05:59 05:59 05:59 Intake Total 350 Output Total 1900 Balance -1550 - Physical Exam Constitutional: uncomfortable Eyes: PERRL Ears, Nose, Mouth, Throat: hearing normal Cardiovascular: regular rate and rhythym, edema (2-3+ lower extremity) Respiratory: no respiratory distress Gastrointestinal: normoactive bowel sounds Skin: warm, No normal color (pale) Neurologic: AAOx3 Psychiatric: interacting appropriately, not anxious ICD10 Worksheet Patient Problems: Problems Problem Status Onset Dysplastic polyp of rectum Acute
[2016-05-31] MEDS: CYANO/VITAMIN B12 1000 MCG TAB PO SCH (08:42)
[2016-05-31] MEDS: CHOLECALCIFEROL VIT D3 1,000 UNITS TAB PO SCH (08:42)
[2016-05-31] MEDS: ONDANSETRON 4 MG/2 ML VIAL IVP PRN ×2 (08:58→13:51)
--- NOTE | 2016-05-31 09:53 | CPEKG ---
Heart Rate: 73 RR Interval: 822 P-R Interval: 160 QRSD Interval: 74 QT Interval: 376 QTC Interval: 415 P [place]: 71 QRS [place]: 31 T Wave [place]: 40 EKG Severity - NORMAL ECG - EKG Impression: SINUS RHYTHM EKG Impression: Agree with above Electronically Signed By: Daniel Santiago 31-May-2016 12:44:09
--- NOTE | 2016-05-31 14:23 | GCON ---
[f rep st] CONSULTATION DATE OF CONSULTATION: 05/31/2016 REASON FOR CONSULT: Urinary retention. HISTORY OF PRESENT ILLNESS: This is a pleasant 65-year-old male who is known to our office. He pre sented to the emergency room on the suggestion of his oncologist because of his elevated creatinine levels. Upon admission, he was found to have a high level of urinary retention or having a signific ant amount of urine in his bladder. The patient was also describing several weeks of nausea, fevers of up to 101, night sweats, lower leg swelling since having a rectal surgery on May [address] Amy linn. From a urinary perspective, he was experiencing new symptoms of incontinence both with and wit hout awareness, was using Depends for this, but to the best of his knowledge he was still able to em pty his bladder appropriately. PAST MEDICAL HISTORY: Ulcerative colitis, status post subtotal colectomy, recurrent kidney stones, prediabetes, insomnia, BPH. SOCIAL HISTORY: He lives alone. Denies tobacco, alcohol, illicit drug use. FAMILY HISTORY: Negative for kidney stones. ALLERGIES: Penicillins and sulfa. PHYSICAL EXAM: VITAL SIGNS: Blood pressure 147/67, heart rate 74, respirations 18, O2 92% on room air, temperature 37. GENERAL: This is a well-developed, well-nourished male in no acute distress. HEENT: Normocephalic, atraumatic. Extraocular movements intact. NECK: Supple. No lymphadenopat hy. Trachea midline. RESPIRATORY: No accessory respiratory muscle use. CARDIAC: Regular rate an d rhythm. No obvious JVD. The patient does have bilateral mild lower extremity edema. GI: Abdome n was soft, nondistended. Mildly tender to palpation diffusely. Colectomy bag in place. : The patient has a catheter draining clear urine into a bag. Testicles descended bilaterally. Some disc omfort associated with the right superior pole of the epididymis. INTEGUMENT: Patient was mildly p suzette upon exam but no obvious rashes or lesions. MUSCULOSKELETAL: He was examined while supine movi ng upper extremities without difficulty. NEURO: He was alert and oriented. Affect appropriate to situation. LABS: His white blood cell count is 7.55, hemoglobin 8.1, hematocrit 26.3, platelets 503. Chemistr y: Sodium 141, potassium 5, chloride 109, carbon dioxide 22, anion gap 10, BUN 26, creatinine 2, im proved from 3.5 yesterday, glucose 107, calcium 7.7. Normal urinalysis. No culture indicated. The patient did have an ultrasound done of the abdomen and pelvis which I personally reviewed, showing very mild left hydronephrosis, right simple cyst, 2 left simple cysts and a postvoid residual. The patient was unable to void so a residual in his bladder of 1131 mL. ASSESSMENT: Urinary retention, BPH. PLAN: This patient has been previously evaluated in our office for BPH and has undergone a procedur e on his prostate in the past. Recommend the patient have the Ching catheter left in place until he can be evaluated with outpatient studies in our office for consideration of a possible repeat proce dure on his prostate. Discussed with the patient who is in agreement with the plan. If creatinine level does not continue to improve, may consider a repeat renal ultrasound to assess for any residua l hydronephrosis and the unlikely but possible need for a percutaneous tube. /[id number]/MODL
--- NOTE | 2016-05-31 15:06 | SOAPPROG ---
SOAP Progress Note Assessment/Plan: Assessment: 65yo male admitted with acute renal injury, s/p APR for rectal adenocarcinoma, history of prev colectomy, ostomy placement for ulcerative colitis Pain well controlled, feel better than yesterday. PE awake alert abdomen ostomy in place, abdomen soft nontender to palpation, perineal wound with sutures, no erythema or discharge. Ext +1 pedal edema Plan: F/U in our office next week for suture removal. will discuss with Dr Tony 05/31/16 15:03 Objective: Vital Signs Temp Pulse Resp BP Pulse Ox 37 C 74 18 147/67 H 92 05/31/16 11:59 05/31/16 11:59 05/31/16 11:59 05/31/16 11:59 05/31/16 11:59 Laboratory Results 05/31/16 04:39 05/31/16 04:39 05/30/16 05/31/16 06/01/16 05:59 05:59 05:59 Intake Total 350 Output Total 1900 Balance -1550 ICD10 Worksheet Patient Problems: Problems Problem Status Onset Dysplastic polyp of rectum Acute
[2016-05-31] MEDS: CYCLOBENZAPRINE 10 MG TAB PO PRN (16:46)
[2016-05-31] MEDS: ONDANSETRON DISINTEGRATING 4 MG TAB PO PRN (18:03)
[2016-06-01] MEDS: CYCLOBENZAPRINE 10 MG TAB PO PRN (00:17)
[2016-06-01] MEDS: HYDROCODONE/APAP 5/325 TAB PO PRN ×6 (01:58→21:59)
[2016-06-01] MEDS: NS 1,000 ML IV SCH ×3 (03:55→21:19)
[2016-06-01 05:23] LABS: % IMMATURE GRANULYOCYTES 0.5 % (0.0-1.1); ABSOLUTE IMMATURE GRANULOCYTES 0.05 10^3/uL (0.00-0.10); ADD DIFF? NO; ADD MORPH? NO; ADD SCAN? NO; ATYPICAL LYMPHOCYTE FLAG 0 (0-99); FRAGMENT RBC FLAG 10 (0-99); HEMATOCRIT 30.9 % (40.0-51.0); HEMOGLOBIN 9.2 g/dL (13.7-17.5); LEFT SHIFT FLG 0 (0-99); LIPEMIA HEMOLYSIS FLAG 70 (0-99); MEAN CELL HEMOGLOBIN 26.8 pg (27.9-34.1); MEAN CELL HEMOGLOBIN CONCENTR. 29.8 g/dL (32.4-36.7); MEAN CELL VOLUME 90.1 fL (81.5-99.8); MEAN PLATELET VOLUME 9.9 fL (8.7-11.7); PLATELET CLUMPS FLAG 0 (0-99); PLATELET COUNT 474 10^3/uL (150-400); RED BLOOD CELL COUNT 3.43 10^6/uL (4.40-6.38); RED CELL DISTRIBUTION WIDTH 16.7 % (11.5-15.2)
[2016-06-01 05:37] LABS: ALBUMIN 2.8 g/dL (3.5-5.0); ANION GAP 11 mEq/L (8-16); CALCIUM 8.2 mg/dL (8.5-10.4); CARBON DIOXIDE 20 mEq/l (22-31); CHLORIDE 109 mEq/L (97-110); CREATININE 2.1 mg/dL (0.7-1.3); GLOMERULAR FILTRATION RATE 32; GLUCOSE 111 mg/dL (70-100); MAGNESIUM 2.1 mg/dL (1.6-2.3); POTASSIUM 5.4 mEq/L (3.5-5.2); SODIUM 140 mEq/L (134-144)
[2016-06-01] MEDS: HEPARIN 5,000 UNIT/0.5 ML SYR SC SCH ×3 (05:59→21:59)
[2016-06-01] MEDS: CHOLECALCIFEROL VIT D3 1,000 UNITS TAB PO SCH (07:42)
[2016-06-01] MEDS: CYANO/VITAMIN B12 1000 MCG TAB PO SCH (07:42)
--- NOTE | 2016-06-01 08:31 | HOSPPROG ---
Hospitalist Progress Note Assessment/Plan: Patient is a 65-year-old male who presented to the emergency room with new acute kidney injury. 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 Reviewed his care with Dr Leach. * Acute renal failure -multifactorial /likely due to poor intake, urinary retention - creatinine has slightly increased - will check an FeNA - ask nephrology to get involved - avoid any nephrotoxic agents * hyperkalemia - Kayexalate now *acute urinary retention -patient doesn't believe this is secondary from narcotics -appreciate urology/ leave mar in at dc -reviewed his ua/ doesn't have a UTI * acute leukocytosis -improved *anemia -will follow *lower extremity swelling -ultrasound shows no dvt -suspect it is r/t recent surgery and renal failure -nursing staff to richard wrap/better with this -also, has low albumin * ulcerative colitis - status post subtotal colectomy * prediabetes - metformin on hold due to the above * high grade rectal dysplasia - further follow up with Oncology *DVT prophylaxis: Heparin sq *Plan: cont iv fluids, Dr Leach to see, oob tid for all meals, increase ambulation, PT and OT seeing. Subjective: Raffi is c/o feeling fatigued. Objective: Vital Signs Temp Pulse Resp BP Pulse Ox 37.0 C 81 16 138/71 H 94 06/01/16 08:00 06/01/16 08:00 06/01/16 08:00 06/01/16 08:00 06/01/16 08:00 Laboratory Results 06/01/16 05:04 06/01/16 05:04 05/31/16 06/01/16 06/02/16 05:59 05:59 05:59 Intake Total 350 4845 Output Total 1900 900 750 Balance -1550 3945 -750 - Physical Exam Constitutional: uncomfortable Eyes: PERRL Ears, Nose, Mouth, Throat: hearing normal Cardiovascular: regular rate and rhythym Respiratory: no respiratory distress, reduced air movement Gastrointestinal: normoactive bowel sounds, other (ostomy with loose stool) Skin: warm, normal color Musculoskeletal: generalized weakness Neurologic: AAOx3 Psychiatric: interacting appropriately, not anxious ICD10 Worksheet Patient Problems: Problems Problem Status Onset Dysplastic polyp of rectum Acute
[2016-06-01] MEDS ORDERED: NS 500 ML IV ONE (09:29)
--- NOTE | 2016-06-01 10:10 | GHP ---
[f rep st] HISTORY AND PHYSICAL DATE OF ADMISSION: 05/30/2016 REASON FOR CONSULTATION: Acute renal failure. ASSESSMENT: 1. Acute renal failure, likely prerenal azotemia. 2. Urinary retention, possibly related to trauma related to his recent pelvic surgery. 3. Ulcerative colitis with ileostomy. 4. Anemia. 5. Hypoalbuminemia. 6. Edema. RECOMMENDATIONS: 1. Bolus with normal saline. 2. Continue IV fluid resuscitation. 3. Check urine studies. 4. Continue Ching drainage. 5. Avoid nonsteroidals, IV contrast and other medications that can affect renal blood flow and kidn ey function. HISTORY: The patient is very pleasant 65-year-old male I have been asked to consult on by China campo NP for his increased creatinine. He had recent hospitalization at [facility] for a high-grade rectal dysplasia. He was admitted to the hospital on 05/07/2016 and discharged o n 05/13/2016 after full abdominoperineal resection and peristomal hernia repair. His hospital cours e was remarkable for fever over the first 1-2 days believed to be due to atelectasis. He had stable kidney function at that time. Upon discharge to home he experienced nausea and vomiting and decreased oral intake. He had no appe tite. He used Zofran with some relief for the symptoms. He tried to maintain fluid input, but was not doing very well with solids. He noted a normal output from his ileostomy. He had problems with urinary incontinence with what so unds like overflow incontinence. He was wearing an adult diaper and would have leakage and then anitha etimes he would have brief moments of urinary stream that he sometimes could catch and void into the toilet. These symptoms let to outpatient evaluation where his creatinine was found to be 3.5. He was referr ed to the hospital for further evaluation and treatment. His prior creatinine was 0.9. In the hospital he was found to have urinary retention of a liter of urine. A Ching catheter was pl aced. The patient has been given IV fluid. His creatinine came down to 2, but has not improved fur ther since that time. He had normal-appearing kidneys on ultrasound and no blood or protein noted o n urinalysis. He has no prior history of kidney problems. He has had no nonsteroidal use. He has history of ulcerative colitis. He had surgery approximately 14 years ago when he developed c omplications of toxic megacolon. This surgery in 2002 coincided with his diagnosis. It sounds like he had been having bloody stool for approximately 2 years prior to that admission and surgery. He had a total colectomy with ileostomy formation at that time. He has had history of kidney stones, i nsomnia and carries a diagnosis of pre diabetes. PAST SURGICAL HISTORY: Subtotal colectomy, prostate surgery, abdominoperineal resection with perist omal hernia repair most recently on 05/07/2016, glaucoma surgery and history of EGD with biopsy. PAST MEDICAL HISTORY: Other past medical history is for BPH, obstructive sleep apnea, osteoarthriti s. OUTPATIENT MEDICATIONS: B12 1000 mcg daily, vitamin D3 1000 international units daily, trazodone 50 mg at bedtime p.r.n., metformin 500 mg daily, amitriptyline 50 mg at bedtime if needed, Zolpidem 10 mg at bedtime as needed, Tylenol with hydrocodone, APAP. ALLERGIES: Penicillin and sulfa. SOCIAL HISTORY: He was born in [place]. He went to school at and [employer]. He studied [employer]. 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 He is these last 7 years. His was a investment fund manager for [employer]. She of cancer. REVIEW OF SYSTEMS: Negative, except for that included in the history of present illness. PHYSICAL EXAMINATION: VITAL SIGNS: Temperature 37, pulse 81, respirations 16, blood pressure 130/7 1. APPEARANCE: No apparent distress. SKIN: Pale. HEENT: Atraumatic, normocephalic. NECK: Unr emarkable. HEART: Regular with no extra heart sounds. LUNGS: Clear to auscultation bilaterally t hroughout the bases. ABDOMEN: Distended. He has a right lower quadrant ileostomy. He is soft, bu t tender. He was not checked for rebound or guarding. EXTREMITIES: Trace to 1+ edema up to his kn ees. LABORATORY DATA: Creatinine down to 2.1 from the admission level of 3.5. Baseline creatinine is ri ght around 0.9-1.1. He is anemic with his hemoglobin having gone down from 15 preop to a current le delmi of 9.2. His hemoglobin actually went up a point from yesterday from 8.1 to 9.2. He is hypoalbu minemic with an albumin currently of 2.8. Preoperatively his albumin was 3.9-3.8. Urinalysis shows no blood or protein. Ultrasound shows normal-appearing kidneys with a right kidney of 13 cm and a left kidney of 12 cm. ASSESSMENT: Acute renal failure. I suspect this is primarily hemodynamically mediated at this time . Initially he may have had an element of urinary obstruction from his urinary retention. He had n o hydronephrosis, but he did have a liter of urine in his bladder. He describes symptoms that were suggestive of overflow incontinence, so I suspect that urinary retention had been going on for a whi le. We will see how he does with Ching drainage, but I would like to give him more IV fluids in spi te of his edema. He has obligatory output from his ileostomy that may make him more prone to dehydr ation. He is hypoalbuminemic, so I would expect him to have edema in the setting of being volume replete. We will check urine studies. We will continue his IV fluid rate. He has not had any medications th at would have resulted in renal insult. Without blood or protein in the urine, it is unlikely that he has any other type of renal injury at this time. /[id number]/MODL
[2016-06-01] MEDS: SODIUM POLY SULF 15 GM/60 ML BOTTLE PO ONE ×2 (10:37→15:36)
[2016-06-01] MEDS: ONDANSETRON 4 MG/2 ML VIAL IVP PRN (10:49)
--- NOTE | 2016-06-01 12:41 | SOAPPROG ---
SOAP Progress Note Assessment/Plan: Assessment: feeling dizzy. Requested that I look at his wound tomorrow Plan: 06/01/16 12:40 Objective: Vital Signs Temp Pulse Resp BP Pulse Ox 36.8 C 82 16 133/67 H 92 06/01/16 11:48 06/01/16 11:48 06/01/16 11:48 06/01/16 11:48 06/01/16 11:48 Laboratory Results 06/01/16 05:04 06/01/16 05:04 05/31/16 06/01/16 06/02/16 05:59 05:59 05:59 Intake Total 350 4845 Output Total 1900 900 820 Balance -1550 3945 -820 ICD10 Worksheet Patient Problems: Problems Problem Status Onset Dysplastic polyp of rectum Acute
[2016-06-01] MEDS: ONDANSETRON DISINTEGRATING 4 MG TAB PO PRN (18:14)
--- NOTE | 2016-06-02 00:25 | CPEKG ---
Heart Rate: 122 RR Interval: 492 P-R Interval: 148 QRSD Interval: 78 QT Interval: 300 QTC Interval: 428 P [place]: 77 QRS [place]: 72 T Wave [place]: 10 EKG Severity - OTHERWISE NORMAL ECG - EKG Impression: SINUS TACHYCARDIA Electronically Signed By: Paul Becker 02-Jun-2016 09:47:42
--- NOTE | 2016-06-02 00:28 | HOSPPROG ---
Hospitalist Progress Note Assessment/Plan: Cross cover note: Called by nursing to evaluate patient for acute change in vital signs and distress. Per report, patient was ambulating to bathroom when he became acutely nauseated, vomited and then became light headed and near syncopal. He returned to the bed, but even after resting, was noted to be diaphoretic, tachycardic, and complaining of shortness of breath--noted to have new oxygen requirement of 6L in order to maintain o2 sats in the low 90s (previously on RA to 2L for same saturation). At the time of my evaluation, patient is in moderate distress, he is diaphoretic , tachypneic, tachycardic and complaining of ongoing shortness of breath as well as abdominal distension and nausea. He states all of this is new from prior. He does have 2+ pitting edema of BLE, and an ultrasound on 05/30 negative for DVT. Lungs sound clear though he does have increased work of breathing, abd distended with diffuse ttp w/o rebound or guarding. HR remains in 110-120s during my evaluation despite being at rest (previously stable in the 80s) # acute respiratory failure: with relatively clear lungs but new respiratory distress and new o2 requirement of 6L. Stat CXR and abdominal xrays ordered. Concern for PE given underlying malignancy and recent surgery, however patient is on HSC, had a negative US in the last several days and given ELAINE, CTA not possible at this time. If CXR/abd xray does not give alternative explanation, will start tx dose heparin, obtain echo in am. Will also obtain serial trops and start cardiac monitoring. No wheezing to suggest RAD exacerbation etc. > 40 minutes of critical care time spent, more than half at bedside providing face to face care, as well as in evaluating labs/images Objective: Vital Signs Temp Pulse Resp BP Pulse Ox 36.8 C 118 H 20 112/69 92 06/01/16 23:25 06/01/16 23:25 06/01/16 23:25 06/01/16 23:25 06/01/16 23:25 Laboratory Results 06/01/16 05:04 06/01/16 05:04 05/31/16 06/01/16 06/02/16 05:59 05:59 05:59 Intake Total 350 4845 1000 Output Total 7633 148 7207 Balance -1550 3945 -370 ICD10 Worksheet Patient Problems: Problems Problem Status Onset Dysplastic polyp of rectum Acute
[2016-06-02 01:02] LABS: % IMMATURE GRANULYOCYTES 0.5 % (0.0-1.1); ABSOLUTE IMMATURE GRANULOCYTES 0.08 10^3/uL (0.00-0.10); ADD DIFF? NO; ADD MORPH? NO; ADD SCAN? NO; ATYPICAL LYMPHOCYTE FLAG 0 (0-99); FRAGMENT RBC FLAG 10 (0-99); HEMATOCRIT 30.6 % (40.0-51.0); HEMOGLOBIN 9.2 g/dL (13.7-17.5); LEFT SHIFT FLG 0 (0-99); LIPEMIA HEMOLYSIS FLAG 80 (0-99); MEAN CELL HEMOGLOBIN 26.9 pg (27.9-34.1); MEAN CELL HEMOGLOBIN CONCENTR. 30.1 g/dL (32.4-36.7); MEAN CELL VOLUME 89.5 fL (81.5-99.8); MEAN PLATELET VOLUME 9.3 fL (8.7-11.7); PLATELET CLUMPS FLAG 30 (0-99); PLATELET COUNT 485 10^3/uL (150-400); RED BLOOD CELL COUNT 3.42 10^6/uL (4.40-6.38); RED CELL DISTRIBUTION WIDTH 16.9 % (11.5-15.2)
[2016-06-02 01:20] LABS: ALANINE AMINOTRANSFERASE 60 IU/L (21-72); ALBUMIN 3.1 g/dL (3.5-5.0); ALKALINE PHOSPHATASE 154 IU/L (38-126); ANION GAP 13 mEq/L (8-16); ASPARTATE AMINOTRANSFERASE 43 IU/L (17-59); BILIRUBIN,TOTAL 0.6 mg/dL (0.1-1.4); CALCIUM 8.4 mg/dL (8.5-10.4); CARBON DIOXIDE 18 mEq/l (22-31); CHLORIDE 111 mEq/L (97-110); CREATININE 2.5 mg/dL (0.7-1.3); GLOMERULAR FILTRATION RATE 26; GLUCOSE 145 mg/dL (70-100); POTASSIUM 5.1 mEq/L (3.5-5.2); SODIUM 142 mEq/L (134-144)
[2016-06-02 01:31] LABS: TROPONIN I 0.599 ng/mL (0-0.034)
[2016-06-02] MEDS: ONDANSETRON DISINTEGRATING 4 MG TAB PO PRN ×3 (02:02→15:22)
[2016-06-02 02:07] LABS: BICARBONATE 18 mEq/L (22-26); MEASURED OXYGEN SATURATION 93 % (92-95); O2 CONCENTRATIION 95 % (0-100); P/F RATIO 75 RATIO; PCO2 30 mmHg (34-38); PO2 71 mmHg (65-75); TCO2 19 mEq/L (23-27)
[2016-06-02] MEDS ORDERED: ALBUTEROL 3 ML DEYVIAL IH PRN (03:00)
[2016-06-02] MEDS: NS 1,000 ML IV SCH ×3 (03:23→22:42)
[2016-06-02] MEDS: LORazepam 2 MG/ML INJ IVP PRN ×2 (03:24→22:41)
[2016-06-02] MEDS: ONDANSETRON 4 MG/2 ML VIAL IVP PRN (03:24)
[2016-06-02] MEDS ORDERED: PROMETHAZINE HCL 25 MG TAB PO PRN (04:14)
[2016-06-02 05:04] LABS: ALBUMIN 2.9 g/dL (3.5-5.0); ANION GAP 10 mEq/L (8-16); CALCIUM 8.1 mg/dL (8.5-10.4); CARBON DIOXIDE 18 mEq/l (22-31); CHLORIDE 112 mEq/L (97-110); CREATININE 2.5 mg/dL (0.7-1.3); GLOMERULAR FILTRATION RATE 26; GLUCOSE 145 mg/dL (70-100); POTASSIUM 5.6 mEq/L (3.5-5.2); SODIUM 140 mEq/L (134-144)
[2016-06-02] MEDS: HEPARIN 5,000 UNIT/0.5 ML SYR SC SCH (05:29)
--- NOTE | 2016-06-02 08:22 | SOAPPROG ---
SOAP Progress Note Assessment/Plan: Assessment: BPH (benign prostatic hypertrophy) with urinary retention Acute Hydronephrosis Acute Urine retention Acute Reviewed CAT scan and notes and seems pt has had mar advanced from placement in the prostate. Plan: DC mar and see if pt voids adequately 06/02/16 09:28 Objective: Vital Signs Temp Pulse Resp BP Pulse Ox 36.6 C 109 H 20 101/73 95 06/02/16 04:00 06/02/16 04:00 06/02/16 04:00 06/02/16 04:00 06/02/16 04:00 Laboratory Results 06/02/16 00:50 06/02/16 06:00 06/01/16 06/02/16 06/03/16 05:59 05:59 05:59 Intake Total 4884 1411 Output Total 900 2145 Balance 0965 -713 ICD10 Worksheet Patient Problems: Problems Problem Status Onset BPH (benign prostatic hypertrophy) with urinary retention Acute Hydronephrosis Acute Urine retention Acute Dysplastic polyp of rectum Acute - ICD10 Problem Qualifiers (1) Urine retention (2) Hydronephrosis Qualifiers: Hydronephrosis type: H (3) BPH (benign prostatic hypertrophy) with urinary retention
[2016-06-02] MEDS: CYANO/VITAMIN B12 1000 MCG TAB PO SCH (08:32)
--- NOTE | 2016-06-02 08:39 | SOAPPROG ---
SOAP Progress Note Assessment/Plan: Assessment: S/P APR near syncopal event. Had CT ab/pelvis last evening. Official read not available yet but hydro and ? ruptured right collecting system Urology has been consulted Suture removal on Fri S: Complains of feeling like he needs to urinate O: Lying in bed. Can turn easily to his side. His perineal incision is cdi. The suture is cut towards the scrotum but intact. Plan: 06/01/16 12:40 06/02/16 08:36 Objective: Vital Signs Temp Pulse Resp BP Pulse Ox 36.6 C 109 H 20 101/73 95 06/02/16 04:00 06/02/16 04:00 06/02/16 04:00 06/02/16 04:00 06/02/16 04:00 Laboratory Results 06/02/16 00:50 06/02/16 06:00 06/01/16 06/02/16 06/03/16 05:59 05:59 05:59 Intake Total 6529 7532 Output Total 695 2145 Balance 9793 -213 ICD10 Worksheet Patient Problems: Problems Problem Status Onset BPH (benign prostatic hypertrophy) with urinary retention Acute Hydronephrosis Acute Urine retention Acute Dysplastic polyp of rectum Acute
--- NOTE | 2016-06-02 09:18 | CPEKG ---
Heart Rate: 100 RR Interval: 600 P-R Interval: 148 QRSD Interval: 72 QT Interval: 324 QTC Interval: 418 P [place]: 84 QRS [place]: 58 T Wave [place]: 46 EKG Severity - OTHERWISE NORMAL ECG - EKG Impression: SINUS TACHYCARDIA EKG Impression: S1Q3T3 pattern with tachycardia (query PE) Electronically Signed By: Paul Becker 02-Jun-2016 09:48:45
--- NOTE | 2016-06-02 09:58 | GCON ---
[f rep st] CONSULTATION DATE OF CONSULTATION: 06/02/2016 HISTORY OF PRESENT ILLNESS: I have been asked by Dr. Chow to see this patient because of urina ry retention and rising creatinine. Upon reviewing the patient today, he has some mild abdominal di stention, but previous surgery is noted. He has had the feeling that he needs to void and urinate. He has had a history of BPH and I reviewed his office records prior to this, and he has had a CAT s can recently that shows a Ching catheter in the prostatic urethra and bladder is distended and he pearce s some hydronephrosis bilaterally. He has intra-abdominal inflammation and fluid collection along t he right psoas muscle. The question is whether that is urine or from previous surgery, and then als o he has a right renal cyst. His creatinine has risen and so last night it was 2.5 and this morning it is 2.5, but he has had inadequate urine drainage. PHYSICAL EXAMINATION: GENERAL: He is alert and oriented. NECK: He has normal suppleness of the n anabel. EYES: Have no suggestion of icterus. LUNGS: He has unlabored breathing. ABDOMEN: Distende d with gas and he has some mild suprapubic pain, and a stoma site that appears to be intact. The ca theter is in his urethra, but he has a lot of blood at the meatus. I have actually deflated the bal loon and tried to advance a catheter unsuccessfully, so I removed it and he was able to void 500 mL of fluid quite easily. ASSESSMENT/PLAN: At the present time with his voiding and all and he says that prior to surgery, he was doing adequate, I have elected to remove the catheter and leave the catheter free. Check postv oid residuals throughout the next 24 hours, and then if necessary, may need to undergo cystoscopy. He is aware that he has had previous obstruction of the prostate and if he undergoes cystoscopy, zion zabala we relieve the obstruction at the same setting to try and improve his bladder outlet. His most recent urinary retention is related to narcotics and postoperative care. He appears to be well info rmed and we will follow him as outlined. /[id number]/MODL
--- NOTE | 2016-06-02 10:09 | PDCARCONS ---
Cardiology Consult Reason for Consult: Near syncopal event Chief Complaint: No cardiovascular complaints Requesting Physician: Hospitalists History of Present Illness: Patient is a 65 y/o male with history of ulcerative colitis s/p relatively recent abdominal surgery in early May 2016, discharged to home 05-13-16 with recent readmission for acute renal failure (creatinine was over 3, when previously "normal"), who had a near syncopal event last night while ambulating to the bathroom. Associated symptoms being dyspnea, nausea, malaise, and accelerated heart rates. Given history, urology has been consulted and is working with the patient. No voiced cardiovascular complaints - no chest pains or pressure, no PND or orthopnea. Fevers and chills were being noted, but have passed. No symptoms similar to this in the past. At present, the patient is doing well. Patient has no history of HTN, HLP, or CAD, but as of 2013, has been on oral hypoglycemic therapy for DM. 12 point review of symptoms was negative. History Information - Allergies/Home Medication List Allergies/Adverse Reactions: Penicillins Allergy (Unknown, Verified 05/07/16 10:30) Sulfa (Sulfonamide Antibiotics) Allergy (Unknown, Verified 05/07/16 10:30) Home Medications: Amitriptyline HCl [Elavil 50 mg (*)] 50 mg PO HS PRN 05/07/16 [Last Taken Unknown] Cholecalciferol Vit D3 [Vitamin D3 (*)] 1,000 units PO DAILY 05/07/16 [Last Taken 05/07/16] Cyanocobalamin [Vitamin B12 (*)] 1,000 mcg PO DAILY 05/07/16 [Last Taken ] metFORMIN HCL [Metformin HCl ER] 500 mg PO DAILY 05/07/16 [Last Taken 05/30/16] traZODone [traZODONE 50MG (*)] 50 mg PO HS PRN 05/07/16 [Last Taken Unknown] Hydrocodone/Acetaminophen [Emery 5/325 (*)] 2 each PO Q4H PRN 05/30/16 [Last Taken Unknown] I have personally reviewed and updated: family history, medical history, social history, surgical history - Past Medical History diabetes type 2 - Surgical History Reports: colectomy - Family History Positive for: CAD, hypertension - Social History Smoking Status: Former smoker Alcohol Use: None Drug Use: None Cardiac History - Cardiac History Cardiac Risk Factors: diabetes mellitus, age > 65, male Timing/Duration: Hours Severity: severe Severity Scale: 8 Activities at Onset: activity Modifying Factors: improves with: oxygen, rest Associated Symptoms: diaphoresis, malaise, nausea/vomiting, shortness of breath , syncope QUINCY Risk Evaluation age greater or equal to 65: yes greater or equal to 3 CAD risk factors: no known CAD(stenosis greater or eqaul to 50%): no ASA use in past 7 days: no severe angina(greater or equal to 2 episodes in 24hrs): no EKG ST changes greater or equal to 0.5mm: no positive cardiac marker: yes Total Score: 2 QUINCY Score: 8.3% risk Physical Exam Temp Pulse Resp BP Pulse Ox 36.9 C 102 H 17 127/74 H 98 06/02/16 08:00 06/02/16 08:00 06/02/16 08:00 06/02/16 08:00 06/02/16 08:00 O2 (L/minute) 5.5 Constitutional: no apparent distress, appears nourished, not in pain Eyes: PERRL Ears, Nose, Mouth, Throat: moist mucous membranes Cardiovascular: regular rate and rhythym, pulses symmetric bilaterally, tachycardia, No JVD Peripheral Pulses: 2+: dorsalis-pedis (R), dorsalis-pedis (L) Respiratory: no respiratory distress, no rales or rhonchi, clear to auscultation Gastrointestinal: normoactive bowel sounds Skin: warm, normal color, No no induration, No rash Musculoskeletal: full muscle strength, no muscle tenderness, normal joint ROM Neurologic: AAOx3, sensation intact bilaterally, weakness Psychiatric: interacting appropriately, not anxious, not encephalopathic Lab and Imaging 06/02/16 00:50 06/02/16 06:00 WBC 14.99 10^3/uL (3.80-9.50) H 06/02/16 00:50 RBC 3.42 10^6/uL (4.40-6.38) L 06/02/16 00:50 Hgb 9.2 g/dL (13.7-17.5) L 06/02/16 00:50 Hct 30.6 % (40.0-51.0) L 06/02/16 00:50 MCV 89.5 fL (81.5-99.8) 06/02/16 00:50 MCH 26.9 pg (27.9-34.1) L 06/02/16 00:50 MCHC 30.1 g/dL (32.4-36.7) L 06/02/16 00:50 RDW 16.9 % (11.5-15.2) H 06/02/16 00:50 Plt Count 485 10^3/uL (150-400) H 06/02/16 00:50 MPV 9.3 fL (8.7-11.7) 06/02/16 00:50 Neut % (Auto) 90.8 % (39.3-74.2) H 06/02/16 00:50 Lymph % (Auto) 2.3 % (15.0-45.0) L 06/02/16 00:50 [place] % (Auto) 4.9 % (4.5-13.0) 06/02/16 00:50 Eos % (Auto) 1.1 % (0.6-7.6) 06/02/16 00:50 Baso % (Auto) 0.4 % (0.3-1.7) 06/02/16 00:50 Nucleat RBC Rel Count 0.0 % (0.0-0.2) 06/02/16 00:50 Absolute Neuts (auto) 13.61 10^3/uL (1.70-6.50) H 06/02/16 00:50 Absolute Lymphs (auto) 0.35 10^3/uL (1.00-3.00) L 06/02/16 00:50 Absolute Monos (auto) 0.73 10^3/uL (0.30-0.80) 06/02/16 00:50 Absolute Eos (auto) 0.16 10^3/uL (0.03-0.40) 06/02/16 00:50 Absolute Basos (auto) 0.06 10^3/uL (0.02-0.10) 06/02/16 00:50 Absolute Nucleated RBC 0.00 10^3/uL (0-0.01) 06/02/16 00:50 Immature Gran % 0.5 % (0.0-1.1) 06/02/16 00:50 Immature Gran # 0.08 10^3/uL (0.00-0.10) 06/02/16 00:50 Puncture Site RIGHT RADIAL 06/02/16 02:00 Patient Temperature 37.0 DEGREES 06/02/16 02:00 pCO2 30 mmHg (34-38) L 06/02/16 02:00 pO2 71 mmHg (65-75) 06/02/16 02:00 Total CO2 19 mEq/L (23-27) L 06/02/16 02:00 ABG pH 7.39 (7.35-7.45) 06/02/16 02:00 ABG PO2/FiO2 Ratio 75 RATIO 06/02/16 02:00 ABG O2 Saturation 93 % (92-95) 06/02/16 02:00 ABG Base Excess -6.0 mEq/L (-2.5-2.5) L 06/02/16 02:00 VBG Lactic Acid 2.0 mmol/L (0.7-2.1) 06/02/16 00:50 Total O2 Concentration 6.0 LITERS 06/02/16 02:00 O2 Concentration % 95 % (0-100) 06/02/16 02:00 Sodium 140 mEq/L (134-144) 06/02/16 06:00 Potassium 5.6 mEq/L (3.5-5.2) H 06/02/16 06:00 Chloride 112 mEq/L (97-110) H 06/02/16 06:00 Carbon Dioxide 18 mEq/l (22-31) L 06/02/16 06:00 Bicarbonate 18 mEq/L (22-26) L 06/02/16 02:00 Anion Gap 10 mEq/L (8-16) 06/02/16 06:00 BUN 23 mg/dL (7-23) 06/02/16 06:00 Creatinine 2.5 mg/dL (0.7-1.3) H 06/02/16 06:00 Estimated GFR 26 06/02/16 06:00 Glucose 145 mg/dL (70-100) H 06/02/16 06:00 Calcium 8.1 mg/dL (8.5-10.4) L 06/02/16 06:00 Phosphorus 4.8 mg/dL (2.5-4.5) H 06/02/16 06:00 Magnesium 2.0 mg/dL (1.6-2.3) 06/02/16 00:50 Total Bilirubin 0.6 mg/dL (0.1-1.4) 06/02/16 00:50 AST 43 IU/L (17-59) 06/02/16 00:50 ALT 60 IU/L (21-72) 06/02/16 00:50 Alkaline Phosphatase 154 IU/L (38-126) H 06/02/16 00:50 Troponin I 1.350 ng/mL (0-0.034) H 06/02/16 06:00 Total Protein 6.0 g/dL (6.3-8.2) L 06/02/16 00:50 Albumin 2.9 g/dL (3.5-5.0) L 06/02/16 06:00 Urine Color YELLOW 05/30/16 20:30 Urine Appearance CLEAR 05/30/16 20:30 Urine pH 5.0 (5.0-7.5) 05/30/16 20:30 Ur Specific [place] 1.011 (1.002-1.030) 05/30/16 20:30 Urine Protein NEGATIVE (NEGATIVE) 05/30/16 20:30 Urine Ketones NEGATIVE (NEGATIVE) 05/30/16 20:30 Urine Blood NEGATIVE (NEGATIVE) 05/30/16 20:30 Urine Nitrate NEGATIVE (NEGATIVE) 05/30/16 20:30 Urine Bilirubin NEGATIVE (NEGATIVE) 05/30/16 20:30 Urine Urobilinogen NEGATIVE EU (0.2-1.0) 05/30/16 20:30 Ur Leukocyte Esterase NEGATIVE (NEGATIVE) 05/30/16 20:30 Ur Culture Indicated? NOT INDICATED (NI) 05/30/16 20:30 Ur Random Sodium 54 mEq/L (30-90) 06/01/16 08:35 Urine Glucose NEGATIVE (NEGATIVE) 05/30/16 20:30 Visualized and Interpreted Chest x-ray results: Yes Chest X-ray Interpretation: no infiltrate EKG Interpretation: Positive for: normal sinsus rhythm, other (S1Q3T3 and tachycardia) Telemetry: sinus tachycardia Echocardiogram: preliminary report with dilation to the RA and RV with septal wall flattening - findings concerning for pulmonary emboli A/P Assessment: 65 y/o male with abdominal surgery early last month with readmission to [facility] with Acute Renal Failure, who had a near syncopal event last night. ECG with sinus tachycardia and S1Q3T3 and there has been a minor leak in troponin. Echocardiogram this morning with dilation to the right atrial and ventricular chambers. Aware that the patient is reportedly on DVT prophylaxis (lovenox), but there are many findings highly suggestive of pulmonary emboli. 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
[2016-06-02] MEDS: HYDROCODONE/APAP 5/325 TAB PO PRN ×3 (10:33→20:11)
[2016-06-02] MEDS ORDERED: HEPARIN 10,000 UNIT/10 ML MDV IVP ONE (10:34)
--- NOTE | 2016-06-02 10:39 | SOAPPROG ---
SOAP Progress Note Assessment/Plan: Assessment:Plan: ARF-now worse in setting of mar within the prostatic urethra and bladder distension -case discussed with Drs. Go and Wilmar -mar out and now draining urine from bladder -follow bladder scan -RFP this afternoon -re-image pelvis tomorrow, non-contrast due to ARF -appears euvolemic at this time Hyperkalemia-on low K diet -repeat labs this afternoon -should resolve quickly if above obstruction adequately relieved and patient is able to empty bladder 06/02/16 10:36 Subjective: feeling better, no further bladder symptoms Objective: Vital Signs Temp Pulse Resp BP Pulse Ox 36.9 C 102 H 17 127/74 H 98 06/02/16 08:00 06/02/16 08:00 06/02/16 08:00 06/02/16 08:00 06/02/16 08:00 Laboratory Results 06/02/16 00:50 06/02/16 06:00 06/01/16 06/02/16 06/03/16 05:59 05:59 05:59 Intake Total 4845 1411 Output Total 900 2145 Balance 3945 -734 Physical Exam - Physical Exam General Appearance: WD/WN, alert, no apparent distress EENT: normal ENT inspection Neck: normal inspection Respiratory: decreased breath sounds (at bases) Cardiac/Chest: No diastolic murmur, No systolic murmur Abdomen: normal bowel sounds, soft, No non-tender Extremities: swelling (0-tr) ICD10 Worksheet Patient Problems: Problems Problem Status Onset BPH (benign prostatic hypertrophy) with urinary retention Acute Hydronephrosis Acute Urine retention Acute Dysplastic polyp of rectum Acute
--- NOTE | 2016-06-02 10:48 | HOSPPROG ---
Hospitalist Progress Note Assessment/Plan: Patient is a 65-year-old male who presented to the emergency room with new acute kidney injury. 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 Overnight he became acutely ill with increased oxygen requirements, tachycardia and shortness of breath. Evaluation included CT scans without contrast of the chest abdomen and pelvis which did reveal an enlarged bladder and fluid collections of unclear chronicity. Patient discussed with Urology, Nephrology and Cardiology. * Acute renal failure: Likely secondary to urinary retention and possible some dehydration. Initial Mar placement was in the prostate and last night on his CT was noted to have significant urinary retention with development of bilateral hydronephrosis. Dr. Go has seen the patient and removed the Mar , he had good urine output and is much more comfortable this morning. Will check further labs later today to follow renal function and check routine postvoid residuals as well. * Follow creatinine * Check PVRs frequently will Mar is out * Repeat CT scan tomorrow to review hydronephrosis and inflammation in the abdomen. # Elevated troponin: Patient breath and tachypnea last night. Echocardiogram reviewed with Cardiology and he has increased right-sided pressures and evidence of a flattened septum. These are most consistent with possible pulmonary embolic disease. Patient admits to having a angiogram done in 2013 in [facility] at that time his doctor told him that he had the heart of a 11- year-old. I am unable to access those records. * Start on IV heparin * Check V/Q scan to rule out PE # hyperkalemia, follow should improve with diuresis # urinary retention, see above appreciate Urology. Will follow PVRs without Mar and recheck CT scan in a.m. # anemia. Will follow # lower extremity swelling. Previous ultrasounds were negative for DVT however given new findings on echocardiogram will place on IV heparin check V/Q scan and follow. We can discontinue IV heparin if he Q scan is low probability or negative # ulcerative colitis status post subtotal colectomy # prediabetes metformin on hold due to the above # high grade rectal dysplasia. further follow up with Oncology Subjective: Patient feeling better this morning much less discomfort in his lower abdomen. Still on higher oxygen needs. Objective: Vital Signs Temp Pulse Resp BP Pulse Ox 36.9 C 102 H 17 127/74 H 98 06/02/16 08:00 06/02/16 08:00 06/02/16 08:00 06/02/16 08:00 06/02/16 08:00 Laboratory Results 06/02/16 00:50 06/02/16 06:00 06/01/16 06/02/16 06/03/16 05:59 05:59 05:59 Intake Total 4889 1411 Output Total 900 2145 Balance 3945 -074 - Physical Exam Constitutional: uncomfortable Eyes: PERRL, EOMI Ears, Nose, Mouth, Throat: moist mucous membranes Cardiovascular: regular rate and rhythym, no murmur, rub, or gallop Respiratory: no respiratory distress, no rales or rhonchi, reduced air movement Gastrointestinal: tenderness, No normoactive bowel sounds (Decreased), No guarding, No rebound Genitourinary: No mar in urethra Skin: warm, normal color Musculoskeletal: No asymmetric calves Neurologic: AAOx3, No facial droop Psychiatric: interacting appropriately, not anxious, not encephalopathic ICD10 Worksheet Patient Problems: Problems Problem Status Onset Dysplastic polyp of rectum Acute Urine retention Acute Hydronephrosis Acute BPH (benign prostatic hypertrophy) with urinary retention Acute
[2016-06-02 11:34] LABS: % IMMATURE GRANULYOCYTES 0.6 % (0.0-1.1); ABSOLUTE IMMATURE GRANULOCYTES 0.09 10^3/uL (0.00-0.10); ADD DIFF? NO; ADD MORPH? NO; ADD SCAN? NO; ATYPICAL LYMPHOCYTE FLAG 0 (0-99); FRAGMENT RBC FLAG 10 (0-99); HEMATOCRIT 30.3 % (40.0-51.0); HEMOGLOBIN 9.2 g/dL (13.7-17.5); INR 1.18 (0.83-1.16); LEFT SHIFT FLG 0 (0-99); LIPEMIA HEMOLYSIS FLAG 80 (0-99); MEAN CELL HEMOGLOBIN 26.9 pg (27.9-34.1); MEAN CELL HEMOGLOBIN CONCENTR. 30.4 g/dL (32.4-36.7); MEAN CELL VOLUME 88.6 fL (81.5-99.8); MEAN PLATELET VOLUME 9.5 fL (8.7-11.7); PLATELET CLUMPS FLAG 0 (0-99); PLATELET COUNT 543 10^3/uL (150-400); RED BLOOD CELL COUNT 3.42 10^6/uL (4.40-6.38); RED CELL DISTRIBUTION WIDTH 16.8 % (11.5-15.2)
[2016-06-02 11:35] LABS: APTT 33.1 SEC (23.0-38.0)
[2016-06-02] MEDS: HEPARIN/DEXTROSE 500 ML IV SCH ×2 (11:49→22:42)
--- NOTE | 2016-06-02 12:05 | ECHO ---
[id number] + + [address] : : [place] [address] : : [phone] + + Adult Echocardiographic Report + -----+ :Name: MEREDITH FOSTER RStudy Date: 06/02/2016 10:03 AM : : Hospital Admission Number: [id number] Location : 222: :: 1950 Gender: Male Height: 70 in : :Age: 65 yrs Race: WH Weight: 250 lb : :Reason For Study: Worsening hpoxia/BLE edema/chest pain : : BSA: 2.3 meters2 : + -----+ MMode/2D Measurements \T\ Calculations IVSd: 1.1 cm LVIDd: 4.0 cm FS: 41.6 % Ao root diam: 3.8 cm LVPWd: 1.0 cm LVIDs: 2.3 cm EDV(Teich): 69.2 ml LA dimension: 3.4 cm ESV(Teich): 18.6 ml EF(Teich): 73.1 % Normal Measurement Values: + + :LVIDd (3.5-5.7cm) IVSd (0.6-1.1cm) LVPWd (0.6-1.1cm) Aortic Root (2.0-3.7cm)Left Atrium (1.5-4.0cm): :LV Vol(d) (76-115ml) LV Vol(s) (29-48ml) Ejec Fraction (50-65%)PV Artie (0.6- 1.2m/s) TV Artie (0.4-1.0m/s) : :MV E Artie (0.8-1.0m/s)MV A Artie (0.3-1.0m/s)LVOT Artie (0.7-1.2m/s) Asc Ao Artie ( 0.9-1.8m/s) : + + Doppler Measurements \T\ Calculations MV E max artie: 52.1 cm/sec Ao V2 max: 104.5 cm/sec TR max artie: 289.1 cm/sec MV A max artie: 60.9 cm/sec Ao max P.4 mmHg TR max P.4 mmHg MV E/A: 0.86 RAP systole: 10.0 mmHg RVSP(TR): 43.4 mmHg Left Ventricle The left ventricular cavity is small. There is normal left ventricular wall thickness. The left ventricle is hyperdynamic. Ejection Fraction = 70-75%. Flattened septum is consistent with RV pressure/volume overload. Right Ventricle The right ventricle is moderately dilated. A moderator band is seen in the right ventricle. The right ventricular systolic function is moderate to severely reduced. Atria The left atrial size is normal. The right atrium is moderate to severely dilated. Atrial septum is bowing towards the left heart. Mitral Valve The mitral valve is normal in structure and function. There is mild mitral regurgitation. Tricuspid Valve Normal tricuspid valve. There is moderate tricuspid regurgitation. Right ventricular systolic pressure is 44-54mmHg. There is Doppler evidence for mild pulmonary hypertension. Aortic Valve The aortic valve is trileaflet. The aortic valve opens well. There is no aortic stenosis. There is no aortic insufficiency. Pulmonic Valve The pulmonic valve is not well visualized. There is no pulmonic valvular regurgitation. Great Vessels The aortic root is normal size. Pericardium/Pleural There is no pericardial effusion. Conclusion A complete two-dimensional transthoracic echocardiogram was performed (2D, M-mode, Doppler and color flow Doppler). (1) Left ventricular systolic ejection fraction was normal (70%) - grossly normal wall motion to hyperdynamic (2) No left ventriuclar hypertrophy (3) Diastolic dysfunction was not appreciated (4) Dilation to the right ventricular chamber with modrerate to severe reduction in systolic function noted (5) Normal left atrial dimensions with moderate to severe right atrial dilation noted (6) Mild mitral regurgitation (7) Trileaflet aortic valve without sclerosis or insufficiency (8) Moderate tricuspid regurgitation - RVSP was estimated to be 45-55 mm Hg (9) Poor visualization of the pulmonic valve without dopper evidence for insufficiency (10) Findings are suggestive of pulmonary emboli given the right heart findings. Final Reading Physician: Paul Becker, Melectronically signed on 06/02/2016 12:04 PM Ordering Physician: Alexis Chow Performed By: Jocelynn Quevedo RDCS
[2016-06-02 17:10] LABS: ANION GAP 9 mEq/L (8-16); CALCIUM 8.5 mg/dL (8.5-10.4); CARBON DIOXIDE 21 mEq/l (22-31); CHLORIDE 111 mEq/L (97-110); CREATININE 2.4 mg/dL (0.7-1.3); GLOMERULAR FILTRATION RATE 27; POTASSIUM 5.5 mEq/L (3.5-5.2); SODIUM 141 mEq/L (134-144)
[2016-06-02 17:21] LABS: GLUCOSE 142 mg/dL (70-100)
[2016-06-02] MEDS: HEPARIN 10,000 UNIT/10 ML MDV IVP PRN (19:49)
[2016-06-03] MEDS: HYDROCODONE/APAP 5/325 TAB PO PRN ×6 (00:06→21:37)
[2016-06-03] MEDS: HEPARIN 10,000 UNIT/10 ML MDV IVP PRN ×2 (04:28→12:08)
[2016-06-03 04:44] LABS: ALBUMIN 2.7 g/dL (3.5-5.0); ANION GAP 11 mEq/L (8-16); CALCIUM 8.3 mg/dL (8.5-10.4); CARBON DIOXIDE 18 mEq/l (22-31); CHLORIDE 111 mEq/L (97-110); CREATININE 2.3 mg/dL (0.7-1.3); GLOMERULAR FILTRATION RATE 29; GLUCOSE 137 mg/dL (70-100); POTASSIUM 5.3 mEq/L (3.5-5.2); SODIUM 140 mEq/L (134-144)
[2016-06-03] MEDS: CYANO/VITAMIN B12 1000 MCG TAB PO SCH (09:09)
--- NOTE | 2016-06-03 10:50 | SOAPPROG ---
SOAP Progress Note Assessment/Plan: Assessment/Plan: ELAINE: likely secondary to obstruction, Cr initially improved from 3.5 to 2.0 with placement of mar catheter, than again up to 2.5 yesterday with mar in prostatic urethra and worsening bladder distention. Mar now removed and pt having UOP but noted that he still has high post-void residuals. Cr is down to 2.3 today. - No need for HD. - Will continue to monitor renal function. - Appreciate Urology input, will discuss with them regarding management of urinary retention. - Avoid MOM, morphine, demerol, NSAIDs, contrast, aminoglycosides, fleets, and other nephrotoxins. Hyperkalemia: will give sodium bicarbonate and continue to monitor. Metabolic acidosis: will give sodium bicarbonate and continue to monitor. Subjective: No acute events overnight. Pt had mar catheter removed yesterday and is urinating but post-void residual bladder scans showing 1L retained in bladder. Pt also had an episode of dyspnea and tachycardia while walking yesterday, tachycardia did not improve, found to have PE and now on heparin ggt. Objective: Vital Signs Temp Pulse Resp BP Pulse Ox 36.7 C 89 22 H 126/90 H 92 06/03/16 07:18 06/03/16 07:45 06/03/16 07:18 06/03/16 07:18 06/03/16 07:18 Laboratory Results 06/02/16 10:47 06/03/16 04:08 06/02/16 06/03/16 06/04/16 05:59 05:59 05:59 Intake Total 1411 3381 240 Output Total 2145 1410 400 Balance -734 1971 -160 PT 15.0 SEC (12.0-15.0) 06/02/16 10:47 INR 1.18 (0.83-1.16) H 06/02/16 10:47 General: alert and oriented, no acute distress Eyes; EOMI, PERRL OP: Clear CV: RRR Resp: nonlabored respirations on NC Abd; Soft, NT Ext: no edema BLE Neuro: CN II-XII grossly intact, no asterixis Psych: cooperative, appropriate mood and affect ICD10 Worksheet Patient Problems: Problems Problem Status Onset BPH (benign prostatic hypertrophy) with urinary retention Acute Hydronephrosis Acute Urine retention Acute Dysplastic polyp of rectum Acute
--- NOTE | 2016-06-03 10:55 | SOAPPROG ---
SOWILL Progress Note Assessment/Plan: Assessment/Plan: 65 Y M hx of subtotal colectomy for UC, now s/p APR for rectal CA 05/07. Admitted with severe urinary retention, acute kidney injury. PE, on heparin gtt. Seen and examined with Dr. Tony. Appreciate medicine, urology, renal, and cardiology input. Defer to Dr. Go regarding management of urinary retention and hydronephrosis. Remove APR sutures today. Will need light dressing for some superficial dehiscence. S: Reports frequent urination in 100-150cc amounts. Eating. Ostomy functioning per usual. O: alert, nad, nontoxic appearing no wob abd: soft, inc cdi gen: apr site clean, superficial dehiscence, no erythema. no induration. 06/03/16 10:55 Objective: Vital Signs Temp Pulse Resp BP Pulse Ox 36.7 C 89 22 H 126/90 H 92 06/03/16 07:18 06/03/16 07:45 06/03/16 07:18 06/03/16 07:18 06/03/16 07:18 Laboratory Results 06/02/16 10:47 06/03/16 04:08 06/02/16 06/03/16 06/04/16 05:59 05:59 05:59 Intake Total 1411 3381 240 Output Total 2145 1410 400 Balance -734 1971 -160 PT 15.0 SEC (12.0-15.0) 06/02/16 10:47 INR 1.18 (0.83-1.16) H 06/02/16 10:47 ICD10 Worksheet Patient Problems: Problems Problem Status Onset BPH (benign prostatic hypertrophy) with urinary retention Acute Hydronephrosis Acute Urine retention Acute Dysplastic polyp of rectum Acute
--- NOTE | 2016-06-03 11:47 | SOAPPROG ---
SOAP Progress Note Assessment/Plan: Assessment: BPH (benign prostatic hypertrophy) with urinary retention Acute Hydronephrosis Acute Urine retention Acute Placed mar with cath guide, complex catheterization Reviewed CAT scan and notes and PVR >999, ordered CAT for this AM and not done at 11:45, await new CAT scan for assessment of tract. Plan: await CAT, cath in place and draining well 06/03/16 13:12 Subjective: feeling better post mar placement Objective: Vital Signs Temp Pulse Resp BP Pulse Ox 36.7 C 89 22 H 126/90 H 92 06/03/16 07:18 06/03/16 07:45 06/03/16 07:18 06/03/16 07:18 06/03/16 07:18 Laboratory Results 06/02/16 10:47 06/03/16 04:08 06/02/16 06/03/16 06/04/16 05:59 05:59 05:59 Intake Total 1411 3381 240 Output Total 2145 1410 400 Balance -734 1971 -160 PT 15.0 SEC (12.0-15.0) 06/02/16 10:47 INR 1.18 (0.83-1.16) H 06/02/16 10:47 Physical Exam - Physical Exam General Appearance: alert Neck: supple Respiratory: No respiratory distress Cardiac/Chest: regular rate, rhythm Abdomen: soft Male Genitalia: normal genitalia Back: No CVA tenderness Extremities: No calf tenderness Neuro/Psych: alert, oriented x 3 ICD10 Worksheet Patient Problems: Problems Problem Status Onset BPH (benign prostatic hypertrophy) with urinary retention Acute Hydronephrosis Acute Urine retention Acute Dysplastic polyp of rectum Acute - ICD10 Problem Qualifiers (1) Urine retention (2) Hydronephrosis Qualifiers: Hydronephrosis type: H (3) BPH (benign prostatic hypertrophy) with urinary retention
[2016-06-03] MEDS: HEPARIN/DEXTROSE 500 ML IV SCH (12:09)
[2016-06-03] MEDS: ONDANSETRON DISINTEGRATING 4 MG TAB PO PRN ×2 (12:15→18:22)
--- NOTE | 2016-06-03 12:30 | HOSPPROG ---
Hospitalist Progress Note Assessment/Plan: Patient is a 65-year-old male who presented to the emergency room with new acute kidney injury. 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 Overnight he became acutely ill with increased oxygen requirements, tachycardia and shortness of breath. Evaluation included CT scans without contrast of the chest abdomen and pelvis which did reveal an enlarged bladder and fluid collections of unclear chronicity. Diagnosed with pulmonary embolism on 06/02/2016 * Acute renal failure: Likely secondary to urinary retention and possible some dehydration. Initial Mar placement was in the prostate and last night on his CT was noted to have significant urinary retention with development of bilateral hydronephrosis. Dr. Go has seen the patient and removed the Mar , continues to have high residuals greater than 999mls which is the maximum reading for our bladder scanner. * Awaiting CT scan * Urology following and aware of retention issues # acute pulmonary embolism noted on V/Q scan and evidence of elevated right- sided pressures on echo * Continue IV heparin * Will hold on starting Coumadin since patient may need procedures done in the near future. # hyperkalemia, follow should improve with diuresis # urinary retention, see above appreciate Urology. Will follow PVRs without Mar and recheck CT scan in a.m. # anemia. Will follow # lower extremity swelling. Previous ultrasounds were negative for DVT however given new findings on echocardiogram will place on IV heparin check V/Q scan and follow. We can discontinue IV heparin if he Q scan is low probability or negative # ulcerative colitis status post subtotal colectomy # prediabetes metformin on hold due to the above # high grade rectal dysplasia. further follow up with Oncology Subjective: Feels weak today and just does not feel good. Breathing is still labored but stable. Objective: Vital Signs Temp Pulse Resp BP Pulse Ox 36.7 C 89 22 H 126/90 H 92 06/03/16 07:18 06/03/16 07:45 06/03/16 07:18 06/03/16 07:18 06/03/16 07:18 Laboratory Results 06/02/16 10:47 06/03/16 04:08 06/02/16 06/03/16 06/04/16 05:59 05:59 05:59 Intake Total 1411 3381 240 Output Total 2145 1410 400 Balance -734 1971 -160 PT 15.0 SEC (12.0-15.0) 06/02/16 10:47 INR 1.18 (0.83-1.16) H 06/02/16 10:47 - Physical Exam Constitutional: uncomfortable Eyes: PERRL, anicteric sclera, EOMI Ears, Nose, Mouth, Throat: moist mucous membranes, hearing normal, ears appear normal Cardiovascular: regular rate and rhythym, edema Respiratory: clear to auscultation, respiratory distress, No expiratory wheeze Gastrointestinal: normoactive bowel sounds, tenderness (Mild) Genitourinary: No no bladder fullness, No mar in urethra Skin: warm, No normal color (Pale) Musculoskeletal: no joint effusions, generalized weakness Neurologic: AAOx3, No facial droop Psychiatric: interacting appropriately, not anxious, not encephalopathic ICD10 Worksheet Patient Problems: Problems Problem Status Onset Dysplastic polyp of rectum Acute Urine retention Acute Hydronephrosis Acute BPH (benign prostatic hypertrophy) with urinary retention Acute
[2016-06-03] MEDS ORDERED: LIDOCAINE 2% JELLY 20 ML (UROJECT) ONE (12:33)
--- NOTE | 2016-06-03 12:33 | PDCARPN ---
Cardiology Progress Note Chief Complaint: Dyspnea Assessment/Plan: Assessment: 65 y/o Male admitted for dyspnea, Urinary retention, with history of Ulcerative Colitis, Rectal Cancer, post recent surgery May 2016, home 05/13/16. Readmitted due to Renal Failure with Cr >3. He experienced near syncope last evening, with dyspnea, nausea, and tachycardia. He has no past cardiac history. Troponin elevated / 1.350. Cr remains elevated at 2.3 today. No chest pain. PULMONARY EMBOLI noted on VQ scan Treatment on Heparin. He has associated dyspnea. URINARY RETENTION: he has hx of BPH with Urinary retention, now improving. He had K+ elevation and was giving Sodium Bicarb. Plan: 06/03/16 12:33 06/03/16 16:58 Objective: Vital Signs (8 Hrs) Temp Pulse Resp BP Pulse Ox 06/03/16 07:45 89 06/03/16 07:18 36.7 C 97 22 H 126/90 H 92 Intake/Output (24 Hrs) 06/02/16 06/03/16 06/04/16 05:59 05:59 05:59 Intake Total 1411 3381 240 Output Total 2145 1410 400 Balance -734 1971 -160 Intake: Oral (ml) 1200 1900 240 IV Infused (ml) 211 1481 Heparin/Dextrose 500 ml @ 408 Per Protocol IV CONT YASHIRA Rx#:[id number] Ns 1,000 ml @ 100 mls/hr 211 1073 IV CONT YASHIRA Rx#: [id number] Output: Urine (ml) 2145 1285 400 Catheter 2095 Ileostomy 50 600 Urinal 685 400 Liquid Stool (ml) 125 Ileostomy 125 Other: Weight 116.4 kg Intake Quantity Yes Sufficient Output Comment Ileostomy scanner says >999 Urinal bladder scanner reading was greater than 1000ml, 1000 is max scanner abilit Number of Voids Ileostomy 1 Urinal 1 Number of Stools Ileostomy 1 1 Post Void Residual Scan Volume (ml) Ileostomy 160 999 Urinal 1,000 999 Result Diagrams: 06/02/16 10:47 06/03/16 04:08 Cardiac Labs: Cardiac Lab Results (72 Hrs) 06/02/16 06/02/16 06:00 00:50 Troponin I 1.350 H 0.599 H - Physical Exam Constitutional: WDWN, no apparent distress Cardiovascular: regular rate and rhythm, no murmurs, no rubs, no gallops Respiratory: no crackles, no wheezes, reduced air movement Skin: warm, No no edema (2+ Left slightly >) Neurologic: AAOx3 Psychiatric: cooperative, interactive ICD10 Worksheet Patient Problems: Problems Problem Status Onset Dysplastic polyp of rectum Acute Urine retention Acute Hydronephrosis Acute BPH (benign prostatic hypertrophy) with urinary retention Acute
[2016-06-03] MEDS: LORazepam 2 MG/ML INJ IVP PRN (12:58)
[2016-06-03] MEDS: SODIUM BICARBONATE 650 MG TAB PO SCH ×2 (16:29→21:41)
[2016-06-03] MEDS: NS 1,000 ML IV SCH (20:03)
[2016-06-03] MEDS: CYCLOBENZAPRINE 10 MG TAB PO PRN (20:13)
[2016-06-03] MEDS: ZOLPIDEM TARTRATE 5 MG TAB PO PRN (23:00)
[2016-06-04] MEDS: ZOLPIDEM TARTRATE 5 MG TAB PO PRN ×2 (02:10→22:54)
[2016-06-04 05:48] LABS: HEMATOCRIT 25.6 % (40.0-51.0); HEMOGLOBIN 7.7 g/dL (13.7-17.5); LIPEMIA HEMOLYSIS FLAG 80 (0-99); MEAN CELL HEMOGLOBIN 26.6 pg (27.9-34.1); MEAN CELL HEMOGLOBIN CONCENTR. 30.1 g/dL (32.4-36.7); MEAN CELL VOLUME 88.6 fL (81.5-99.8); PLATELET COUNT 540 10^3/uL (150-400); RED BLOOD CELL COUNT 2.89 10^6/uL (4.40-6.38); RED CELL DISTRIBUTION WIDTH 17.2 % (11.5-15.2)
[2016-06-04 06:05] LABS: ALANINE AMINOTRANSFERASE 45 IU/L (21-72); ALBUMIN 2.4 g/dL (3.5-5.0); ALKALINE PHOSPHATASE 119 IU/L (38-126); ANION GAP 11 mEq/L (8-16); ASPARTATE AMINOTRANSFERASE 24 IU/L (17-59); BILIRUBIN,TOTAL 0.3 mg/dL (0.1-1.4); CARBON DIOXIDE 21 mEq/l (22-31); CHLORIDE 109 mEq/L (97-110); CREATININE 1.1 mg/dL (0.7-1.3); GLOMERULAR FILTRATION RATE > 60; GLUCOSE 121 mg/dL (70-100); POTASSIUM 4.4 mEq/L (3.5-5.2); SODIUM 141 mEq/L (134-144); TOTAL PROTEIN 5.3 g/dL (6.3-8.2)
[2016-06-04] MEDS: NS 1,000 ML IV SCH (06:43)
[2016-06-04] MEDS: HEPARIN 10,000 UNIT/10 ML MDV IVP PRN ×2 (06:43→14:23)
[2016-06-04] MEDS: HYDROCODONE/APAP 5/325 TAB PO PRN ×4 (07:12→20:12)
[2016-06-04] MEDS: CYANO/VITAMIN B12 1000 MCG TAB PO SCH (09:22)
[2016-06-04] MEDS: SODIUM BICARBONATE 650 MG TAB PO SCH (09:22)
[2016-06-04] MEDS: HEPARIN/DEXTROSE 500 ML IV SCH (10:05)
--- NOTE | 2016-06-04 10:46 | PDCARPN ---
Cardiology Progress Note Assessment/Plan: Assessment: 65 y/o Male admitted for dyspnea, Urinary retention, with history of Ulcerative Colitis, Rectal Cancer, post recent surgery May 2016, home 05/13/16. Readmitted due to Renal Failure with Cr >3. He experienced near syncope last evening, with dyspnea, nausea, and tachycardia. He has no past cardiac history. Troponin elevated / 1.350. Cr remains elevated at 2.3 today. No chest pain. PULMONARY EMBOLI noted on VQ scan Treatment on Heparin. He has associated dyspnea. URINARY RETENTION: he has hx of BPH with Urinary retention, now improving. He had K+ elevation and was giving Sodium Bicarb. Plan: 06/03/16 12:33 06/03/16 16:58 Reviewed/Discussed With: hospitalist, multidisciplinary team Objective: Vital Signs (8 Hrs) Temp Pulse Resp BP Pulse Ox 06/04/16 08:00 36.7 C 96 12 119/72 95 06/04/16 04:00 37.1 C 90 19 131/79 H 95 Intake/Output (24 Hrs) 06/03/16 06/04/16 06/05/16 05:59 05:59 05:59 Intake Total 3381 5320 Output Total 1410 3850 Balance 1971 1470 Intake: Oral (ml) 1900 1830 IV Infused (ml) 1481 3490 Heparin/Dextrose 500 ml @ 408 1090 Per Protocol IV CONT YASHIRA Rx#:[id number] Ns 1,000 ml @ 100 mls/hr 1073 2400 IV CONT YASHIRA Rx#: [id number] Output: Urine (ml) 1285 3850 Catheter 3350 Ileostomy 600 100 Urinal 685 400 Liquid Stool (ml) 125 Ileostomy 125 Other: Weight 119.6 kg Intake Quantity Yes Sufficient Output Comment Ileostomy scanner says >999 patient emptied Urinal bladder scanner reading was greater than 1000ml, 1000 is max scanner abilit Number of Voids Ileostomy 1 Urinal 1 Number of Stools Ileostomy 1 1 Post Void Residual Scan Volume (ml) Ileostomy 999 Urinal 1,000 999 Result Diagrams: 06/04/16 05:30 06/04/16 05:30 Cardiac Labs: Cardiac Lab Results (72 Hrs) 06/02/16 06/02/16 06:00 00:50 Troponin I 1.350 H 0.599 H ICD10 Worksheet Patient Problems: Problems Problem Status Onset BPH (benign prostatic hypertrophy) with urinary retention Acute Hydronephrosis Acute Urine retention Acute Dysplastic polyp of rectum Acute
--- NOTE | 2016-06-04 11:54 | SOAPPROG ---
ROLO Progress Note Assessment/Plan: Assessment: 1. ELAINE resolved. I reviewed with patient. 2. MARKS Follow up with urology. We will sign off. Thx. Plan: 06/04/16 11:53 Subjective: Doing fair Objective: Vital Signs Temp Pulse Resp BP Pulse Ox 36.7 C 96 12 119/72 94 06/04/16 08:00 06/04/16 08:15 06/04/16 08:00 06/04/16 08:15 06/04/16 08:15 Laboratory Results 06/04/16 05:30 06/04/16 05:30 06/03/16 06/04/16 06/05/16 05:59 05:59 05:59 Intake Total 3381 5320 Output Total 1410 3850 Balance 1971 1470 PT 15.0 SEC (12.0-15.0) 06/02/16 10:47 INR 1.18 (0.83-1.16) H 06/02/16 10:47 Physical Exam - Physical Exam General Appearance: no apparent distress Respiratory: lungs clear Cardiac/Chest: regular rate, rhythm Male Genitalia: other (mar) Extremities: pedal edema (trace) ICD10 Worksheet Patient Problems: Problems Problem Status Onset BPH (benign prostatic hypertrophy) with urinary retention Acute Hydronephrosis Acute Urine retention Acute Dysplastic polyp of rectum Acute
[2016-06-04] MEDS: ONDANSETRON DISINTEGRATING 4 MG TAB PO PRN (11:59)
--- NOTE | 2016-06-04 13:56 | HOSPPROG ---
Hospitalist Progress Note Assessment/Plan: Patient is a 65-year-old male who presented to the emergency room with new acute kidney injury. 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 Overnight he became acutely ill with increased oxygen requirements, tachycardia and shortness of breath. Evaluation included CT scans without contrast of the chest abdomen and pelvis which did reveal an enlarged bladder and fluid collections of unclear chronicity. He decompensated on 06/02/[address] scan showed Mar placement in the prostate with enlarged bladder bilateral hydronephrosis with a question of ureteral rupture and uroma. Diagnosed with pulmonary embolism on 06/02/2016. Since then Dr. Go is seeing the patient replaced the Mar and his renal function has improved with no changes in his CT scan. He is currently anticoagulated with IV heparin and Coumadin * Acute renal failure: Likely secondary to urinary retention and possible some dehydration. Initial Mar placement was in the prostate, Dr. Go has seen the patient and removed and replaced the Mar. * Repeat CT scan is reassuring * Urology following and aware of retention issues. Will go home with indwelling Mar and follow up with Urology. Unclear findings on CT scan are new or from his previous surgery. # acute pulmonary embolism noted on V/Q scan and evidence of elevated right- sided pressures on echo * With normalizing creatinine will switch him to Lovenox * Will start Coumadin today. # hyperkalemia, resolved # urinary retention, see above appreciate Urology. Follow up with Urology as an outpatient will go home with indwelling catheter # anemia. Will follow # ulcerative colitis status post subtotal colectomy # prediabetes metformin on hold due to the above # high grade rectal dysplasia. further follow up with Oncology as outpatient Disposition: Patient will likely need 1-2 more days of inpatient hospitalization given severity of his pulmonary embolus for close monitoring. Will be discharged with Coumadin and Lovenox bridge S patient has no medication benefits for Medicare. Physical therapy will continue to work with him and decide if he can go home with home care or he may need inpatient rehab. Subjective: Feeling much improved today. He still is quite short of breath with dyspnea on exertion however his abdominal complaints are minimal today. Objective: Vital Signs Temp Pulse Resp BP Pulse Ox 37.2 C 88 16 129/64 H 96 06/04/16 12:00 06/04/16 12:00 06/04/16 12:00 06/04/16 12:00 06/04/16 12:00 Laboratory Results 06/04/16 05:30 06/04/16 05:30 06/03/16 06/04/16 06/05/16 05:59 05:59 05:59 Intake Total 3381 5320 960 Output Total 1410 3850 Balance 1971 1470 960 PT 15.0 SEC (12.0-15.0) 06/02/16 10:47 INR 1.18 (0.83-1.16) H 06/02/16 10:47 - Physical Exam Constitutional: obese, uncomfortable Eyes: PERRL, anicteric sclera, EOMI Ears, Nose, Mouth, Throat: moist mucous membranes Cardiovascular: regular rate and rhythym, no murmur, rub, or gallop Respiratory: no respiratory distress, no rales or rhonchi, clear to auscultation Gastrointestinal: normoactive bowel sounds, soft, non-tender abdomen Genitourinary: no bladder fullness, mar in urethra Skin: warm, normal color Musculoskeletal: no joint effusions, generalized weakness Neurologic: AAOx3 Psychiatric: interacting appropriately, not anxious, not encephalopathic ICD10 Worksheet Patient Problems: Problems Problem Status Onset Dysplastic polyp of rectum Acute Urine retention Acute Hydronephrosis Acute BPH (benign prostatic hypertrophy) with urinary retention Acute
--- NOTE | 2016-06-04 14:28 | SOAPPROG ---
SOAP Progress Note Assessment/Plan: Assessment/Plan: 65 Y M hx of subtotal colectomy for UC, now s/p APR for rectal CA 05/07. Admitted with severe urinary retention, acute kidney injury. PE, on heparin gtt. # APR sutures removed today w/ light dressing for some superficial dehiscence Appreciated medicine, urology, renal, and cardiology input. S: Patient was doing well. No complaints except for minimal abdominal pain. (-) n/v (-) chest pain (-) headache Ostomy functioning per usual. O: Gen: alert, nad, nontoxic appearing HEENT: mmm Chest: no wob, ctab CVS: rrr, (-) murmur Abd: soft, mildly tender to palpation, Wounds intact, clean and dry Colorectal: apr site clean, superficial dehiscence, no erythema. no induration. Ext: (-) edema 06/04/16 14:29 Objective: Vital Signs Temp Pulse Resp BP Pulse Ox 37.2 C 88 16 129/64 H 96 06/04/16 12:00 06/04/16 12:00 06/04/16 12:00 06/04/16 12:00 06/04/16 12:00 Laboratory Results 06/04/16 05:30 06/04/16 05:30 06/03/16 06/04/16 06/05/16 05:59 05:59 05:59 Intake Total 3381 5320 960 Output Total 1410 3850 Balance 1971 1470 960 PT 15.0 SEC (12.0-15.0) 06/02/16 10:47 INR 1.18 (0.83-1.16) H 06/02/16 10:47 ICD10 Worksheet Patient Problems: Problems Problem Status Onset BPH (benign prostatic hypertrophy) with urinary retention Acute Hydronephrosis Acute Urine retention Acute Dysplastic polyp of rectum Acute
--- NOTE | 2016-06-04 14:46 | PDCARPN ---
Cardiology Progress Note Assessment/Plan: Assessment: 65 y/o Male admitted for dyspnea, Urinary retention, with history of Ulcerative Colitis, Rectal Cancer, post recent surgery May 2016, home 05/13/16. Readmitted due to Renal Failure with Cr >3. He experienced near syncope last evening, with dyspnea, nausea, and tachycardia. He has no past cardiac history. Troponin elevated 06/02 1.350. Cr remains elevated at 2.3 today. No chest pain. PULMONARY EMBOLI noted on VQ scan Treatment on Heparin. He has associated dyspnea. URINARY RETENTION: he has hx of BPH with Urinary retention, now improving. He had K+ elevation and was giving Sodium Bicarb. Plan: 06/03/16 12:33 06/04/16 14:45 Generally, he feels better today. He has SOB, but not to the degree as yesterday. Ching catheter was replaced and is now draining better. His Troponin was elevated on admit, and the second was higher, likely related to his PE's, and Severe urinary retention. Reviewed case with Dr Anthony. Will get one more trop today for trend. He has ANGELA and uses CPAP w/O2 at home. He has been using oxygen continuous, but thinks he would sleep better with his CPAP. He will have the CPAP brought in for use tonight. Will plan to sign off, unless he has further cardiac problems. Objective: Vital Signs (8 Hrs) Temp Pulse Resp BP Pulse Ox 06/04/16 12:00 37.2 C 88 16 129/64 H 96 06/04/16 09:55 100 06/04/16 08:15 96 119/72 94 06/04/16 08:00 36.7 C 96 12 119/72 95 Intake/Output (24 Hrs) 06/03/16 06/04/16 06/05/16 05:59 05:59 05:59 Intake Total 3381 5320 960 Output Total 1410 3850 Balance 1971 1470 960 Intake: Oral (ml) 1900 1830 960 IV Infused (ml) 1481 3490 Heparin/Dextrose 500 ml @ 408 1090 Per Protocol IV CONT YASHIRA Rx#:[id number] Ns 1,000 ml @ 100 mls/hr 1073 2400 IV CONT YASHIRA Rx#: [id number] Output: Urine (ml) 1285 3850 Catheter 3350 Ileostomy 600 100 Urinal 685 400 Liquid Stool (ml) 125 Ileostomy 125 Other: Weight 119.6 kg Intake Quantity Yes Sufficient Output Comment Ileostomy scanner says >999 patient emptied Urinal bladder scanner reading was greater than 1000ml, 1000 is max scanner abilit Number of Voids Ileostomy 1 Urinal 1 Number of Stools Ileostomy 1 1 Post Void Residual Scan Volume (ml) Ileostomy 999 Urinal 1,000 999 Result Diagrams: 06/04/16 05:30 06/04/16 05:30 Cardiac Labs: Cardiac Lab Results (72 Hrs) 06/02/16 06/02/16 06:00 00:50 Troponin I 1.350 H 0.599 H - Physical Exam Constitutional: no apparent distress Cardiovascular: regular rate and rhythm, no murmurs, no rubs Peripheral Pulses: 1+: dorsalis-pedis (R), dorsalis-pedis (L) Respiratory: no crackles, no wheezes, reduced air movement Skin: warm, other (lower leg and feet edema 1+) Neurologic: AAOx3 ICD10 Worksheet Patient Problems: Problems Problem Status Onset BPH (benign prostatic hypertrophy) with urinary retention Acute Hydronephrosis Acute Urine retention Acute Dysplastic polyp of rectum Acute
--- NOTE | 2016-06-04 15:32 | SOAPPROG ---
SOAP Progress Note Assessment/Plan: Assessment: BPH/hydronephrosis/urine retention Plan: Catheter to remain in place. Will continue to monitor. no change currently. 06/04/16 15:30 Subjective: Right upper back pain, possibly muscular. continues to have rectal/bladder pain worse with movement Objective: Vital Signs Temp Pulse Resp BP Pulse Ox 36.7 C 92 14 139/69 H 96 06/04/16 15:15 06/04/16 15:15 06/04/16 15:15 06/04/16 15:15 06/04/16 15:15 Laboratory Results 06/04/16 05:30 06/04/16 05:30 06/03/16 06/04/16 06/05/16 05:59 05:59 05:59 Intake Total 3381 5320 960 Output Total 1410 3850 775 Balance 1971 1470 185 PT 15.0 SEC (12.0-15.0) 06/02/16 10:47 INR 1.18 (0.83-1.16) H 06/02/16 10:47 Physical Exam - Physical Exam General Appearance: alert, no apparent distress Respiratory: normal breath sounds, No respiratory distress Abdomen: other (TTP right flank) Male Genitalia: other (mar draining clear urine) ICD10 Worksheet Patient Problems: Problems Problem Status Onset BPH (benign prostatic hypertrophy) with urinary retention Acute Hydronephrosis Acute Urine retention Acute Dysplastic polyp of rectum Acute
[2016-06-04] MEDS: ENOXAPARIN 120 MG/0.8 ML SYR SC SCH (20:09)
[2016-06-05] MEDS: HYDROCODONE/APAP 5/325 TAB PO PRN ×4 (00:18→21:00)
[2016-06-05 05:34] LABS: HEMOGLOBIN 7.5 g/dL (13.7-17.5); MEAN CELL HEMOGLOBIN CONCENTR. 31.3 g/dL (32.4-36.7); MEAN CELL VOLUME 86.3 fL (81.5-99.8); RED BLOOD CELL COUNT 2.78 10^6/uL (4.40-6.38); RED CELL DISTRIBUTION WIDTH 17.2 % (11.5-15.2)
[2016-06-05 05:46] LABS: INR 1.2 (0.83-1.16); PROTIME(PATIENT) 15.2 SEC (12.0-15.0)
[2016-06-05 05:59] LABS: ANION GAP 8 mEq/L (8-16); CALCIUM 8.2 mg/dL (8.5-10.4); CARBON DIOXIDE 25 mEq/l (22-31); CHLORIDE 108 mEq/L (97-110); CREATININE 0.9 mg/dL (0.7-1.3); GLOMERULAR FILTRATION RATE > 60; GLUCOSE 96 mg/dL (70-100); POTASSIUM 4.5 mEq/L (3.5-5.2); SODIUM 141 mEq/L (134-144)
[2016-06-05] MEDS: ONDANSETRON DISINTEGRATING 4 MG TAB PO PRN (08:22)
[2016-06-05] MEDS: CYANO/VITAMIN B12 1000 MCG TAB PO SCH (08:47)
[2016-06-05] MEDS: ENOXAPARIN 120 MG/0.8 ML SYR SC SCH ×2 (08:47→21:42)
[2016-06-05] MEDS: LORazepam 2 MG/ML INJ IVP PRN (11:13)
--- NOTE | 2016-06-05 11:59 | SOAPPROG ---
SOAP Progress Note Assessment/Plan: Assessment: 65yo male admitted with acute renal injury, s/p APR for rectal adenocarcinoma, history of prev colectomy, ostomy placement for ulcerative colitis, pulmonary embolism. Feels a little more SOB today, chest heavy, no chest pain PE awake alert chest CTA B/L abdomen ostomy in place, abdomen soft nontender to palpation, perineal wound with sutures, no erythema or discharge. wound clean dry intact Plan: chest xray although low susp for any new consolidation will discuss with Dr Tony 05/31/16 15:03 06/05/16 11:53 Objective: Vital Signs Temp Pulse Resp BP Pulse Ox 37.0 C 87 20 128/67 H 95 06/05/16 11:41 06/05/16 11:41 06/05/16 11:41 06/05/16 11:41 06/05/16 11:41 Microbiology 06/03/16 13:20 Urine Culture - Final Urine,Catheterized Escherichia Coli 05/30/16 19:30 Blood Culture - Final Blood 05/30/16 19:30 Blood Culture - Final Blood Laboratory Results 06/05/16 05:20 06/05/16 05:20 06/04/16 06/05/16 06/06/16 05:59 05:59 05:59 Intake Total 5320 2350 Output Total 3850 1825 Balance 1470 525 PT 15.2 SEC (12.0-15.0) H 06/05/16 05:20 INR 1.20 (0.83-1.16) H 06/05/16 05:20 ICD10 Worksheet Patient Problems: Problems Problem Status Onset BPH (benign prostatic hypertrophy) with urinary retention Acute Hydronephrosis Acute Urine retention Acute Dysplastic polyp of rectum Acute
[2016-06-05] MEDS: WARFARIN SODIUM 5 MG TAB PO SCH (15:48)
--- NOTE | 2016-06-05 16:35 | HOSPPROG ---
Hospitalist Progress Note Assessment/Plan: Patient is a 65-year-old male who presented to the emergency room with new acute kidney injury. 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 Overnight he became acutely ill with increased oxygen requirements, tachycardia and shortness of breath. Evaluation included CT scans without contrast of the chest abdomen and pelvis which did reveal an enlarged bladder and fluid collections of unclear chronicity. He decompensated on 06/02/[address] scan showed Ching placement in the prostate with enlarged bladder bilateral hydronephrosis with a question of ureteral rupture and uroma. Diagnosed with pulmonary embolism on 06/02/2016. Since then Dr. Go is seeing the patient replaced the Ching and his renal function has improved with no changes in his CT scan. He is currently anticoagulated with IV heparin and Coumadin * Acute renal failure: Likely secondary to urinary retention and possible some dehydration. Initial Ching placement was in the prostate, Dr. Go has seen the patient and removed and replaced the Ching. * Repeat CT scan is reassuring * Urology following and aware of retention issues. Will go home with indwelling Ching and follow up with Urology. Unclear if findings on CT scan are new or from his previous surgery. # acute pulmonary embolism noted on V/Q scan and evidence of elevated right- sided pressures on echo. Still Symptomatic * With normalizing creatinine was switched to Lovenox * On Coumadin. INR subtherapeutic # hyperkalemia, resolved # Volume overload, acute to subacute: will provide trial of Lasix. order TTE # urinary retention, see above appreciate Urology. Follow up with Urology as an outpatient will go home with indwelling catheter # UTI: E-Coli. Keflex ordered Day 03/09 # anemia. Trending down. Monitor closely given AC. No interventions today. Transfuse PRN # ulcerative colitis status post subtotal colectomy # prediabetes metformin on hold due to the above # high grade rectal dysplasia. further follow up with Oncology as outpatient Plan: -Start Keflex today -Cont Lovenox/Coumadin Bridge. Overall improving, but still symptomatic -Monitor H/H closely and transfuse PRN. Platelets are also elevated and likely reactive. Will monitor -He is volume overloaded and reports pedal edema since surgery. Trial of Lasix per above. TTE ordered -Weakness: PT/OT. May need rehab -Cont inpatient, needs further improvement Subjective: Still with SOB. Reports pedal edema, worse over the last few days. Has had it since after surgery. Denies a hx of CHF. First encouter with this patient Objective: Vital Signs Temp Pulse Resp BP Pulse Ox 37.1 C 90 20 140/68 H 96 06/05/16 15:57 06/05/16 15:57 06/05/16 15:57 06/05/16 15:57 06/05/16 15:57 Microbiology 06/03/16 13:20 Urine Culture - Final Urine,Catheterized Escherichia Coli 05/30/16 19:30 Blood Culture - Final Blood 05/30/16 19:30 Blood Culture - Final Blood Laboratory Results 06/05/16 05:20 06/05/16 05:20 06/04/16 06/05/16 06/06/16 05:59 05:59 05:59 Intake Total 5320 2350 Output Total 3850 1825 Balance 1470 525 PT 15.2 SEC (12.0-15.0) H 06/05/16 05:20 INR 1.20 (0.83-1.16) H 06/05/16 05:20 - Time Spent With Patient Time Spent with Patient: greater than 35 minutes Time Spent with Patient: Greater than 35 minutes spent on this patients care, greater than 50% of time spent counseling, educating, and coordinating care regarding the above mentioned plan. - Physical Exam Constitutional: no apparent distress, appears nourished, not in pain Eyes: PERRL, anicteric sclera, EOMI Ears, Nose, Mouth, Throat: moist mucous membranes, hearing normal, ears appear normal Cardiovascular: regular rate and rhythym, no murmur, rub, or gallop Respiratory: no respiratory distress, reduced air movement, No clear to auscultation Gastrointestinal: normoactive bowel sounds, soft, non-tender abdomen Skin: warm, normal color Neurologic: AAOx3 Psychiatric: interacting appropriately, not anxious Lymph, Heme, Immunologic: No petechiae ICD10 Worksheet Patient Problems: Problems Problem Status Onset BPH (benign prostatic hypertrophy) with urinary retention Acute Hydronephrosis Acute Urine retention Acute Dysplastic polyp of rectum Acute
[2016-06-05] MEDS ORDERED: FUROSEMIDE 20 MG/2 ML VIAL IVP ONE (16:37)
[2016-06-05] MEDS: CEPHALEXIN 500 MG CAP PO SCH ×2 (18:26→23:46)
[2016-06-05] MEDS ORDERED: TEARS/DEXTRAN 70/HYPROMELLOSE 15 ML OPHT.BTL EACHEYE PRN (18:40)
[2016-06-05] MEDS: ONDANSETRON 4 MG/2 ML VIAL IVP PRN (21:42)
[2016-06-05] MEDS: ZOLPIDEM TARTRATE 5 MG TAB PO PRN (23:46)
[2016-06-06] MEDS: ZOLPIDEM TARTRATE 5 MG TAB PO PRN ×2 (02:42→22:55)
[2016-06-06] MEDS: CEPHALEXIN 500 MG CAP PO SCH ×4 (05:51→22:52)
[2016-06-06] MEDS: HYDROCODONE/APAP 5/325 TAB PO PRN ×5 (05:54→22:52)
[2016-06-06 06:10] LABS: ABSOLUTE IMMATURE GRANULOCYTES 0.08 10^3/uL (0.00-0.10); ADD DIFF? NO; ADD MORPH? NO; ADD SCAN? NO; ATYPICAL LYMPHOCYTE FLAG 0 (0-99); FRAGMENT RBC FLAG 10 (0-99); HEMATOCRIT 26.1 % (40.0-51.0); HEMOGLOBIN 7.8 g/dL (13.7-17.5); LEFT SHIFT FLG 0 (0-99); LIPEMIA HEMOLYSIS FLAG 70 (0-99); MEAN CELL HEMOGLOBIN 26.2 pg (27.9-34.1); MEAN CELL HEMOGLOBIN CONCENTR. 29.9 g/dL (32.4-36.7); MEAN CELL VOLUME 87.6 fL (81.5-99.8); MEAN PLATELET VOLUME 9.7 fL (8.7-11.7); PLATELET CLUMPS FLAG 0 (0-99); PLATELET COUNT 651 10^3/uL (150-400); RED BLOOD CELL COUNT 2.98 10^6/uL (4.40-6.38); RED CELL DISTRIBUTION WIDTH 16.9 % (11.5-15.2)
[2016-06-06 06:27] LABS: INR 1.18 (0.83-1.16)
[2016-06-06 06:57] LABS: ANION GAP 8 mEq/L (8-16); CALCIUM 8.4 mg/dL (8.5-10.4); CARBON DIOXIDE 28 mEq/l (22-31); CHLORIDE 106 mEq/L (97-110); CREATININE 0.9 mg/dL (0.7-1.3); GLOMERULAR FILTRATION RATE > 60; GLUCOSE 97 mg/dL (70-100); POTASSIUM 4.2 mEq/L (3.5-5.2); SODIUM 142 mEq/L (134-144)
[2016-06-06] MEDS: CYANO/VITAMIN B12 1000 MCG TAB PO SCH (10:21)
[2016-06-06] MEDS: ENOXAPARIN 120 MG/0.8 ML SYR SC SCH ×2 (10:21→21:17)
[2016-06-06] MEDS: ONDANSETRON 4 MG/2 ML VIAL IVP PRN (11:05)
--- NOTE | 2016-06-06 12:43 | SOAPPROG ---
SOAP Progress Note Assessment/Plan: Assessment/Plan: 65yo male admitted with acute renal injury, s/p APR for rectal adenocarcinoma, history of prev colectomy, ostomy placement for ulcerative colitis, pulmonary embolism. Patient was informed that chemo would be of help May go home from surgery's perspective S: Patient is doing well (-) SOB (-) chest pain (-) abdominal pain eating much better O: Gen: awake, nad HEENT: mmm Chest: no use of accessory muscle Abd: soft non-tender, ostomy in place Colorectal: wound OK, (-) erythema, (-) discharge, dressing clean Ext: mild edema (+) mra 06/06/16 12:42 06/06/16 15:14 Objective: Vital Signs Temp Pulse Resp BP Pulse Ox 37.2 C 89 15 122/71 H 92 06/06/16 07:26 06/06/16 07:26 06/06/16 07:26 06/06/16 07:26 06/06/16 07:26 Microbiology 06/03/16 13:20 Urine Culture - Final Urine,Catheterized Escherichia Coli Laboratory Results 06/06/16 05:55 06/06/16 05:55 06/05/16 06/06/16 06/07/16 05:59 05:59 05:59 Intake Total 2350 900 360 Output Total 1825 4540 Balance 525 -3640 360 PT 15.0 SEC (12.0-15.0) 06/06/16 05:55 INR 1.18 (0.83-1.16) H 06/06/16 05:55 ICD10 Worksheet Patient Problems: Problems Problem Status Onset BPH (benign prostatic hypertrophy) with urinary retention Acute Hydronephrosis Acute Urine retention Acute Dysplastic polyp of rectum Acute
--- NOTE | 2016-06-06 15:13 | HOSPPROG ---
Hospitalist Progress Note Assessment/Plan: # acute PE with R sided failure - currently HD stable; agree with present management of lovenox and coumadin # vol overload - lasix again today # ELAINE - resolving with resolution of hydronephrosis # UTI - keflex D#03/09 # MARKS/hydronephrosis/possible ureteral rupture - cont mar, needs UDS with Dr Go as outpatient # thrombocytosis - likely reactive # anemia - no need for transfusion now # UC s/p subtotal colectomy # pre-DM - hold metformin # high grade rectal dysplasia - f/u oncology # FCFT ## chart reviewed CT reviewed US reviewed Subjective: still some SOB Objective: Vital Signs Temp Pulse Resp BP Pulse Ox 36.6 C 84 15 130/77 H 98 06/06/16 12:47 06/06/16 12:47 06/06/16 12:47 06/06/16 12:47 06/06/16 12:47 Laboratory Results 06/06/16 05:55 06/06/16 05:55 06/05/16 06/06/16 06/07/16 05:59 05:59 05:59 Intake Total 2350 900 360 Output Total 1825 4540 Balance 525 -3640 360 PT 15.0 SEC (12.0-15.0) 06/06/16 05:55 INR 1.18 (0.83-1.16) H 06/06/16 05:55 - Physical Exam Constitutional: no apparent distress, appears nourished Cardiovascular: regular rate and rhythym, no murmur, rub, or gallop Respiratory: no respiratory distress, no rales or rhonchi, clear to auscultation Gastrointestinal: normoactive bowel sounds, soft, non-tender abdomen, no palpable masses ICD10 Worksheet Patient Problems: Problems Problem Status Onset BPH (benign prostatic hypertrophy) with urinary retention Acute Hydronephrosis Acute Urine retention Acute Dysplastic polyp of rectum Acute
[2016-06-06] MEDS: WARFARIN SODIUM 5 MG TAB PO SCH (16:22)
[2016-06-06] MEDS: FUROSEMIDE 20 MG/2 ML VIAL IVP SCH (16:22)
[2016-06-06] MEDS: ONDANSETRON DISINTEGRATING 4 MG TAB PO PRN (18:16)
[2016-06-07] MEDS: ZOLPIDEM TARTRATE 5 MG TAB PO PRN ×2 (01:02→22:46)
[2016-06-07] MEDS: CEPHALEXIN 500 MG CAP PO SCH ×4 (05:59→22:46)
[2016-06-07 06:16] LABS: ABSOLUTE IMMATURE GRANULOCYTES 0.07 10^3/uL (0.00-0.10); ADD DIFF? NO; ADD MORPH? NO; ADD SCAN? NO; ATYPICAL LYMPHOCYTE FLAG 20 (0-99); FRAGMENT RBC FLAG 10 (0-99); HEMATOCRIT 25.6 % (40.0-51.0); HEMOGLOBIN 7.7 g/dL (13.7-17.5); LEFT SHIFT FLG 0 (0-99); LIPEMIA HEMOLYSIS FLAG 80 (0-99); MEAN CELL HEMOGLOBIN 26.3 pg (27.9-34.1); MEAN CELL HEMOGLOBIN CONCENTR. 30.1 g/dL (32.4-36.7); MEAN CELL VOLUME 87.4 fL (81.5-99.8); MEAN PLATELET VOLUME 9.5 fL (8.7-11.7); PLATELET CLUMPS FLAG 10 (0-99); PLATELET COUNT 658 10^3/uL (150-400); RED BLOOD CELL COUNT 2.93 10^6/uL (4.40-6.38); RED CELL DISTRIBUTION WIDTH 16.8 % (11.5-15.2)
[2016-06-07 06:27] LABS: INR 1.18 (0.83-1.16)
[2016-06-07 07:08] LABS: ANION GAP 7 mEq/L (8-16); CALCIUM 8.4 mg/dL (8.5-10.4); CARBON DIOXIDE 28 mEq/l (22-31); CHLORIDE 106 mEq/L (97-110); CREATININE 0.9 mg/dL (0.7-1.3); GLOMERULAR FILTRATION RATE > 60; GLUCOSE 97 mg/dL (70-100); POTASSIUM 3.9 mEq/L (3.5-5.2); SODIUM 141 mEq/L (134-144)
[2016-06-07] MEDS: ONDANSETRON DISINTEGRATING 4 MG TAB PO PRN ×2 (08:12→14:48)
[2016-06-07] MEDS: HYDROCODONE/APAP 5/325 TAB PO PRN ×2 (08:13→12:22)
[2016-06-07] MEDS: CYANO/VITAMIN B12 1000 MCG TAB PO SCH (08:14)
[2016-06-07] MEDS: FUROSEMIDE 20 MG/2 ML VIAL IVP SCH (08:14)
[2016-06-07] MEDS: ENOXAPARIN 120 MG/0.8 ML SYR SC SCH ×2 (09:47→21:21)
--- NOTE | 2016-06-07 12:41 | SOAPPROG ---
SOAP Progress Note Assessment/Plan: Assessment: 65yo male admitted with acute renal injury, s/p APR for rectal adenocarcinoma, history of prev colectomy, ostomy placement for ulcerative colitis, pulmonary embolism. Overall a little frustrated with being here but feels things are improving. PE awake alert chest CTA B/L abdomen ostomy in place, abdomen soft nontender to palpation, perineal wound with sutures, no erythema or discharge. wounds clean dry intact Plan: continue care, vigilance of lower wound for any signs of infection/breakdown -- pt aware and understands. ok to d/c from surgical standpoint 05/31/16 15:03 06/05/16 11:53 06/07/16 12:39 Objective: Vital Signs Temp Pulse Resp BP Pulse Ox 36.5 C 72 12 122/65 H 95 06/07/16 11:22 06/07/16 11:22 06/07/16 11:22 06/07/16 11:22 06/07/16 11:22 Laboratory Results 06/07/16 06:00 06/07/16 06:00 06/06/16 06/07/16 06/08/16 05:59 05:59 05:59 Intake Total 900 1245 Output Total 4540 2275 1450 Balance -3640 -1030 -1450 PT 15.0 SEC (12.0-15.0) 06/07/16 06:00 INR 1.18 (0.83-1.16) H 06/07/16 06:00 ICD10 Worksheet Patient Problems: Problems Problem Status Onset BPH (benign prostatic hypertrophy) with urinary retention Acute Hydronephrosis Acute Urine retention Acute Dysplastic polyp of rectum Acute
--- NOTE | 2016-06-07 15:04 | HOSPPROG ---
Hospitalist Progress Note Assessment/Plan: Patient is a 65-year-old male who presented to the emergency room with new acute kidney injury. 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 During his stay, he became acutely ill with increased oxygen requirements, tachycardia and shortness of breath. Evaluation included CT scans without contrast of the chest abdomen and pelvis which did reveal an enlarged bladder and fluid collections of unclear chronicity. He decompensated on 06/02/[address] scan showed Mar placement in the prostate with enlarged bladder bilateral hydronephrosis with a question of ureteral rupture and uraroma. Diagnosed with pulmonary embolism on 2016. # acute PE with R sided failure - bridge treatment w Lovenox until INR is stable x 2 days noted on the VQ scan increase Coumadin dose today to 7.5 mg/ had been on 5 mg pharmacy to dose # vol overload - Lasix 20 mg iv daily/ will continue # ELAINE - resolving with resolution of hydronephrosis will dc renal diet patient not eating much due to the lack of flavor with this diet # UTI - keflex D#04/09 # MARKS/hydronephrosis/possible ureteral rupture - cont mar, needs UDS with Dr Go as outpatient -do not remove mar at dc # Hyperkalemia: resolved # thrombocytosis - likely reactive # anemia - no need for transfusion now he is feeling tired, but no sig drop in h/h # pre-DM - hold metformin # high grade rectal dysplasia - f/u oncology # ulcerative colitis status post subtotal colectomy #Plan: spoke with CM/ I believe Raffi would benefit from staying at a SNF/ he is on O2, needs treatment for PE, needs labs closely monitored, he lives alone. I think home care would not give him enough support at this time. Subjective: Raffi is tired, has very little energy/ no c/o pain. Objective: Vital Signs Temp Pulse Resp BP Pulse Ox 36.5 C 72 12 122/65 H 95 06/07/16 11:22 06/07/16 11:22 06/07/16 11:22 06/07/16 11:22 06/07/16 11:22 Laboratory Results 06/07/16 06:00 06/07/16 06:00 0406/07/16 06/08/16 05:59 05:59 05:59 Intake Total 900 1245 Output Total 4540 2275 1450 Balance -3640 -1030 -1450 PT 15.0 SEC (12.0-15.0) 06/07/16 06:00 INR 1.18 (0.83-1.16) H 06/07/16 06:00 - Physical Exam Constitutional: appears nourished, not in pain Eyes: PERRL Ears, Nose, Mouth, Throat: hearing normal Cardiovascular: regular rate and rhythym, no murmur, rub, or gallop Respiratory: no respiratory distress, reduced air movement Gastrointestinal: normoactive bowel sounds Genitourinary: mar in urethra Skin: warm, No normal color (pale) Musculoskeletal: generalized weakness Neurologic: AAOx3 Psychiatric: interacting appropriately, not anxious ICD10 Worksheet Patient Problems: Problems Problem Status Onset BPH (benign prostatic hypertrophy) with urinary retention Acute Hydronephrosis Acute Urine retention Acute Dysplastic polyp of rectum Acute
[2016-06-07] MEDS: WARFARIN SODIUM 7.5 MG TAB PO SCH (16:39)
[2016-06-07] MEDS ORDERED: HYDROCODONE/APAP 10/325 TAB PO PRN (17:02)
[2016-06-07] MEDS: HYDROCODONE/APAP 10/325 TAB PO PRN (21:22)
[2016-06-08] MEDS: ZOLPIDEM TARTRATE 5 MG TAB PO PRN (03:09)
[2016-06-08 04:19] LABS: HEMATOCRIT 25.7 % (40.0-51.0); HEMOGLOBIN 7.6 g/dL (13.7-17.5)
[2016-06-08 04:31] LABS: ANION GAP 7 mEq/L (8-16); CALCIUM 8.2 mg/dL (8.5-10.4); CARBON DIOXIDE 26 mEq/l (22-31); CHLORIDE 104 mEq/L (97-110); CREATININE 0.8 mg/dL (0.7-1.3); GLOMERULAR FILTRATION RATE > 60; GLUCOSE 84 mg/dL (70-100); POTASSIUM 3.7 mEq/L (3.5-5.2); SODIUM 137 mEq/L (134-144)
[2016-06-08 04:45] LABS: INR 1.25 (0.83-1.16); PROTIME(PATIENT) 15.7 SEC (12.0-15.0)
[2016-06-08] MEDS: CEPHALEXIN 500 MG CAP PO SCH ×3 (06:54→18:37)
[2016-06-08] MEDS: HYDROCODONE/APAP 10/325 TAB PO PRN ×4 (07:21→20:18)
[2016-06-08] MEDS: ENOXAPARIN 120 MG/0.8 ML SYR SC SCH ×2 (09:01→20:19)
[2016-06-08] MEDS: CYANO/VITAMIN B12 1000 MCG TAB PO SCH (09:01)
[2016-06-08] MEDS: FUROSEMIDE 20 MG/2 ML VIAL IVP SCH (09:01)
--- NOTE | 2016-06-08 09:37 | SOAPPROG ---
SOAP Progress Note Assessment/Plan: Assessment: 65yo male admitted with acute renal injury, s/p APR for rectal adenocarcinoma, history of prev colectomy, ostomy placement for ulcerative colitis, pulmonary embolism. INR still low. On warfarin, lovenox. No significant changes PE on oxygen awake alert, moves around easily chest CTA B/L abdomen ostomy in place, abdomen soft nontender to palpation, perineal wound with sutures, no erythema or discharge. wounds clean dry intact Plan: continue care, vigilance of lower wound for any signs of infection/breakdown -- pt aware and understands. Ching will be left in, outpt F/U renal ok to d/c from surgical standpoint 05/31/16 15:03 06/05/16 11:53 06/07/16 12:39 06/08/16 09:35 Objective: Vital Signs Temp Pulse Resp BP Pulse Ox 37.0 C 86 16 144/68 H 89 L 06/08/16 03:10 06/08/16 03:10 06/08/16 03:10 06/08/16 03:10 06/08/16 03:10 Laboratory Results 06/08/16 03:15 06/08/16 03:15 06/07/16 06/08/16 06/09/16 05:59 05:59 05:59 Intake Total 1245 1250 Output Total 2275 2950 Balance -1030 -1700 PT 15.7 SEC (12.0-15.0) H 06/08/16 03:15 INR 1.25 (0.83-1.16) H 06/08/16 03:15 ICD10 Worksheet Patient Problems: Problems Problem Status Onset BPH (benign prostatic hypertrophy) with urinary retention Acute Hydronephrosis Acute Urine retention Acute Dysplastic polyp of rectum Acute
[2016-06-08] MEDS: ONDANSETRON DISINTEGRATING 4 MG TAB PO PRN ×2 (09:43→15:13)
--- NOTE | 2016-06-08 13:11 | HOSPPROG ---
Hospitalist Progress Note Assessment/Plan: Patient is a 65-year-old male who presented to the emergency room with new acute kidney injury. 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 During his stay, he became acutely ill with increased oxygen requirements, tachycardia and shortness of breath. Evaluation included CT scans without contrast of the chest abdomen and pelvis which did reveal an enlarged bladder and fluid collections of unclear chronicity. He decompensated on 06/02/[address] scan showed Mar placement in the prostate with enlarged bladder bilateral hydronephrosis with a question of ureteral rupture and uraroma. Diagnosed with pulmonary embolism on 2016. acute PE with R sided failure - bridge treatment w Lovenox until INR is stable x 2 days noted on the VQ scan increase Coumadin dose today to 7.5 mg/ had been on 5 mg vol overload - Lasix 20 mg iv daily/ will continue increase to bid ELAINE - resolving with resolution of hydronephrosis will dc renal diet patient not eating much due to the lack of flavor with this diet UTI - keflex D#3/ MARKS/hydronephrosis/possible ureteral rupture - cont mar, needs UDS with Dr Go as outpatient -do not remove mar at dc Hyperkalemia: resolved thrombocytosis - likely reactive anemia - no need for transfusion now he is feeling tired, but no sig drop in h/h pre-DM - hold metformin high grade rectal dysplasia - f/u oncology ulcerative colitis status post subtotal colectomy dispo: needs snf Subjective: tele: no events (interp by me) Objective: Vital Signs Temp Pulse Resp BP Pulse Ox 36.8 C 79 17 142/73 H 93 06/08/16 08:00 06/08/16 08:00 06/08/16 08:00 06/08/16 08:00 06/08/16 08:00 Laboratory Results 06/08/16 03:15 06/08/16 03:15 06/07/16 06/08/16 06/09/16 05:59 05:59 05:59 Intake Total 1245 1250 Output Total 2275 2950 Balance -1030 -1700 PT 15.7 SEC (12.0-15.0) H 06/08/16 03:15 INR 1.25 (0.83-1.16) H 06/08/16 03:15 - Physical Exam Constitutional: no apparent distress, appears nourished Eyes: PERRL, anicteric sclera Ears, Nose, Mouth, Throat: moist mucous membranes, hearing normal Cardiovascular: regular rate and rhythym, no murmur, rub, or gallop Respiratory: no respiratory distress, no rales or rhonchi Gastrointestinal: normoactive bowel sounds, soft, non-tender abdomen Genitourinary: mar in urethra Skin: warm, normal color Musculoskeletal: full muscle strength, no muscle tenderness Neurologic: AAOx3, sensation intact bilaterally Psychiatric: interacting appropriately, not anxious ICD10 Worksheet Patient Problems: Problems Problem Status Onset BPH (benign prostatic hypertrophy) with urinary retention Acute Hydronephrosis Acute Urine retention Acute Dysplastic polyp of rectum Acute
[2016-06-08] MEDS: WARFARIN SODIUM 7.5 MG TAB PO SCH (15:13)
[2016-06-08] MEDS: FUROSEMIDE 40 MG/4 ML VIAL IVP SCH (15:13)
[2016-06-09] MEDS: CEPHALEXIN 500 MG CAP PO SCH ×5 (00:15→23:08)
[2016-06-09] MEDS: HYDROCODONE/APAP 10/325 TAB PO PRN ×6 (00:15→20:43)
[2016-06-09] MEDS: ZOLPIDEM TARTRATE 5 MG TAB PO PRN ×2 (00:16→03:32)
[2016-06-09 07:17] LABS: INR 1.28 (0.83-1.16)
[2016-06-09] MEDS: FUROSEMIDE 40 MG/4 ML VIAL IVP SCH ×2 (08:35→16:24)
[2016-06-09] MEDS: CYANO/VITAMIN B12 1000 MCG TAB PO SCH (08:36)
[2016-06-09] MEDS: ENOXAPARIN 120 MG/0.8 ML SYR SC SCH ×2 (08:36→20:43)
[2016-06-09] MEDS: ONDANSETRON DISINTEGRATING 4 MG TAB PO PRN ×4 (08:41→20:45)
--- NOTE | 2016-06-09 09:37 | HOSPPROG ---
Hospitalist Progress Note Assessment/Plan: Patient is a 65-year-old male who presented to the emergency room with new acute kidney injury. 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 During his stay, he became acutely ill with increased oxygen requirements, tachycardia and shortness of breath. Evaluation included CT scans without contrast of the chest abdomen and pelvis which did reveal an enlarged bladder and fluid collections of unclear chronicity. He decompensated on 06/02/[address] scan showed Mar placement in the prostate with enlarged bladder bilateral hydronephrosis with a question of ureteral rupture and uraroma. Diagnosed with pulmonary embolism on 2016. acute PE with R sided failure - bridge treatment w Lovenox until INR is stable x 2 days noted on the VQ scan increase Coumadin dose today to 7.5 mg/ had been on 5 mg INR slow to rise vol overload - Lasix 20 mg iv daily/ will continue increase to bid good diuresis on current dose ELAINE - resolving with resolution of hydronephrosis UTI - keflex D#06/07 MARKS/hydronephrosis/possible ureteral rupture - cont mar, needs UDS with Dr Go as outpatient -do not remove mar at dc Hyperkalemia: resolved thrombocytosis - likely reactive anemia - no need for transfusion now he is feeling tired, but no sig drop in h/h pre-DM - hold metformin high grade rectal dysplasia - f/u oncology ulcerative colitis status post subtotal colectomy dispo: needs snf Subjective: 9kg neg in last 5 days. tele: no events (interp by me). case d/w gen surgery PA Objective: Vital Signs Temp Pulse Resp BP Pulse Ox 36.6 C 92 19 142/69 H 85 L 06/09/16 03:39 06/09/16 03:39 06/09/16 03:39 06/09/16 03:39 06/09/16 03:39 Laboratory Results 06/08/16 03:15 06/08/16 03:15 06/08/16 06/09/16 06/10/16 05:59 05:59 05:59 Intake Total 1250 1420 500 Output Total 2950 3745 725 Balance -1700 -2325 -225 PT 16.0 SEC (12.0-15.0) H 06/09/16 03:40 INR 1.28 (0.83-1.16) H 06/09/16 03:40 - Physical Exam Constitutional: no apparent distress, appears nourished Eyes: PERRL, anicteric sclera Ears, Nose, Mouth, Throat: moist mucous membranes, hearing normal Cardiovascular: regular rate and rhythym, no murmur, rub, or gallop, other ( decreased edema) Respiratory: no respiratory distress, no rales or rhonchi Gastrointestinal: normoactive bowel sounds, soft, non-tender abdomen Genitourinary: mar in urethra Skin: warm, normal color, other (erythematous patch on flank at site of lovenox injection) Musculoskeletal: full muscle strength, no muscle tenderness Neurologic: AAOx3 Psychiatric: interacting appropriately, not anxious Lymph, Heme, Immunologic: no cervical LAD ICD10 Worksheet Patient Problems: Problems Problem Status Onset BPH (benign prostatic hypertrophy) with urinary retention Acute Hydronephrosis Acute Urine retention Acute Dysplastic polyp of rectum Acute
--- NOTE | 2016-06-09 11:06 | SOAPPROG ---
SOAP Progress Note Assessment/Plan: Assessment: 65yo male admitted with acute renal injury, s/p APR for rectal adenocarcinoma, history of prev colectomy, ostomy placement for ulcerative colitis, pulmonary embolism. Planning to go to SNF Fri/Friday per pt. INR still low. On warfarin, lovenox. No significant changes, "feel little better everyday" PE on oxygen awake alert, moves around easily chest CTA B/L abdomen ostomy in place, abdomen soft nontender to palpation, perineal wound with sutures, no erythema or discharge. wounds clean dry intact Plan: continue care, vigilance of lower wound for any signs of infection/breakdown -- pt aware and understands. Ching will be left in, outpt F/U renal ok to d/c from surgical standpoint to SNF Pt desires to speak to oncology if possible before D/C, discussed with nursing to call Friday AM to see if someone from their office can see him prior to d/c as that would be easier than transport from SNF. 05/31/16 15:03 06/05/16 11:53 06/07/16 12:39 06/08/16 09:35 06/09/16 11:04 Objective: Vital Signs Temp Pulse Resp BP Pulse Ox 36.6 C 92 19 142/69 H 85 L 06/09/16 03:39 06/09/16 03:39 06/09/16 03:39 06/09/16 03:39 06/09/16 03:39 Laboratory Results 06/08/16 03:15 06/08/16 03:15 06/08/16 06/09/16 06/10/16 05:59 05:59 05:59 Intake Total 1250 1420 500 Output Total 2950 3835 725 Balance -1700 -2325 -225 PT 16.0 SEC (12.0-15.0) H 06/09/16 03:40 INR 1.28 (0.83-1.16) H 06/09/16 03:40 ICD10 Worksheet Patient Problems: Problems Problem Status Onset BPH (benign prostatic hypertrophy) with urinary retention Acute Hydronephrosis Acute Urine retention Acute Dysplastic polyp of rectum Acute
[2016-06-09 12:02] LABS: ANION GAP 12 mEq/L (8-16); CALCIUM 8.5 mg/dL (8.5-10.4); CARBON DIOXIDE 29 mEq/l (22-31); CHLORIDE 97 mEq/L (97-110); CREATININE 0.9 mg/dL (0.7-1.3); GLOMERULAR FILTRATION RATE > 60; GLUCOSE 122 mg/dL (70-100); POTASSIUM 3.8 mEq/L (3.5-5.2); SODIUM 138 mEq/L (134-144)
[2016-06-09] MEDS: WARFARIN SODIUM 7.5 MG TAB PO SCH (16:30)
[2016-06-09] MEDS: ALTEPLASE 2 MG VIAL IVP PRN ×2 (20:43→23:08)
[2016-06-09] MEDS: HYDROmorphONE/DILAUDID 2 MG/ML INJ IVP PRN (23:52)
[2016-06-10] MEDS ORDERED: oxyCODONE IR 5 MG TAB PO PRN
[2016-06-10] MEDS: HYDROCODONE/APAP 10/325 TAB PO PRN ×5 (00:36→20:24)
[2016-06-10] MEDS: ZOLPIDEM TARTRATE 5 MG TAB PO PRN (00:37)
[2016-06-10] MEDS: CEPHALEXIN 500 MG CAP PO SCH ×3 (06:12→17:45)
[2016-06-10] MEDS: HYDROmorphONE/DILAUDID 2 MG/ML INJ IVP PRN ×2 (06:45→21:58)
[2016-06-10 06:46] LABS: % IMMATURE GRANULYOCYTES 0.6 % (0.0-1.1); ABSOLUTE IMMATURE GRANULOCYTES 0.05 10^3/uL (0.00-0.10); ADD DIFF? NO; ADD MORPH? NO; ADD SCAN? NO; ATYPICAL LYMPHOCYTE FLAG 0 (0-99); FRAGMENT RBC FLAG 20 (0-99); HEMATOCRIT 25.2 % (40.0-51.0); HEMOGLOBIN 7.7 g/dL (13.7-17.5); LEFT SHIFT FLG 0 (0-99); LIPEMIA HEMOLYSIS FLAG 80 (0-99); MEAN CELL HEMOGLOBIN 26.1 pg (27.9-34.1); MEAN CELL HEMOGLOBIN CONCENTR. 30.6 g/dL (32.4-36.7); MEAN CELL VOLUME 85.4 fL (81.5-99.8); MEAN PLATELET VOLUME 9.6 fL (8.7-11.7); PLATELET CLUMPS FLAG 0 (0-99); PLATELET COUNT 239 10^3/uL (150-400); RED BLOOD CELL COUNT 2.95 10^6/uL (4.40-6.38); RED CELL DISTRIBUTION WIDTH 16.8 % (11.5-15.2)
[2016-06-10 06:53] LABS: INR 1.39 (0.83-1.16)
[2016-06-10 07:06] LABS: ANION GAP 8 mEq/L (8-16); CALCIUM 8.1 mg/dL (8.5-10.4); CARBON DIOXIDE 34 mEq/l (22-31); CHLORIDE 98 mEq/L (97-110); CREATININE 0.8 mg/dL (0.7-1.3); GLOMERULAR FILTRATION RATE > 60; GLUCOSE 113 mg/dL (70-100); POTASSIUM 3.1 mEq/L (3.5-5.2); SODIUM 140 mEq/L (134-144)
[2016-06-10] MEDS: FUROSEMIDE 40 MG/4 ML VIAL IVP SCH ×2 (08:00→15:32)
[2016-06-10] MEDS: ENOXAPARIN 120 MG/0.8 ML SYR SC SCH ×3 (08:00→20:25)
[2016-06-10] MEDS: CYANO/VITAMIN B12 1000 MCG TAB PO SCH (08:01)
[2016-06-10] MEDS: ONDANSETRON DISINTEGRATING 4 MG TAB PO PRN (08:03)
--- NOTE | 2016-06-10 09:38 | HOSPPROG ---
Hospitalist Progress Note Assessment/Plan: Patient is a 65-year-old male who presented to the emergency room with new acute kidney injury. 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 During his stay, he became acutely ill with increased oxygen requirements, tachycardia and shortness of breath. Evaluation included CT scans without contrast of the chest abdomen and pelvis which did reveal an enlarged bladder and fluid collections of unclear chronicity. He decompensated on 06/02/[address] scan showed Mar placement in the prostate with enlarged bladder bilateral hydronephrosis with a question of ureteral rupture and uraroma. Diagnosed with pulmonary embolism on 2016. acute PE with R sided failure - bridge treatment w Lovenox until INR is stable x 2 days noted on the VQ scan coumadin 7.5 INR slow to rise vol overload - Lasix 20 mg iv bid diuresing well w stable renal function ELAINE - resolving with resolution of hydronephrosis will dc w mar and outpt urology follow up UTI - keflex D#/ MARKS/hydronephrosis/possible ureteral rupture - cont mar, needs UDS with Dr Go as outpatient -do not remove mar at dc thrombocytosis - likely reactive anemia - no need for transfusion now he is feeling tired, but no sig drop in h/h pre-DM - hold metformin high grade rectal dysplasia path actually + for CA w positive margins ulcerative colitis status post subtotal colectomy dispo: needs snf Subjective: tele: no events (interp by me). case d/w dr christian Objective: Vital Signs Temp Pulse Resp BP Pulse Ox 37.1 C 76 12 134/64 H 99 06/09/16 23:38 06/09/16 23:38 06/09/16 23:38 06/09/16 23:38 06/09/16 23:38 Laboratory Results 06/10/16 06:35 06/10/16 06:35 06/09/16 06/10/16 06/11/16 05:59 05:59 05:59 Intake Total 1420 500 300 Output Total 3745 3125 750 Balance -3505 -6901 -450 PT 17.0 SEC (12.0-15.0) H 06/10/16 06:35 INR 1.39 (0.83-1.16) H 06/10/16 06:35 - Physical Exam Constitutional: no apparent distress, appears nourished Eyes: PERRL, anicteric sclera Ears, Nose, Mouth, Throat: moist mucous membranes, hearing normal Cardiovascular: regular rate and rhythym, no murmur, rub, or gallop, No systolic murmur Respiratory: no respiratory distress, no rales or rhonchi Gastrointestinal: other (hypoactive bowel sounds), No guarding, No rebound Genitourinary: mar in urethra Skin: warm, other (R flank brusing red w skin slough. no hematoma) Musculoskeletal: full muscle strength, no muscle tenderness Neurologic: AAOx3 ICD10 Worksheet Patient Problems: Problems Problem Status Onset BPH (benign prostatic hypertrophy) with urinary retention Acute Hydronephrosis Acute Urine retention Acute Dysplastic polyp of rectum Acute
[2016-06-10] MEDS: SIMETHICONE 80 MG TAB CHEW PO PRN ×2 (10:42→17:46)
--- NOTE | 2016-06-10 11:50 | SOAPPROG ---
SOAP Progress Note Assessment/Plan: Assessment/Plan: 65 Y M hx of subtotal colectomy for UC, now s/p APR for rectal CA /. Admitted with severe urinary retention, acute kidney injury. PE, on heparin gtt, coumadin. Ching in place now. Defer to urology regarding its management. Per pt, will continue this for at least 10 days. Possible stent as outpatient with urology. Awaiting therapeutic INR. Ostomy functioning well and abdominal inc intact. perineal region wound with superficial dehiscence but looks better today than last week. Oncology following for rectal CA. +margin, but margin is rectal stump. No more tissue to remove. Once d/c'ed would like to see in clinic in about a week to follow perineum wound. S: Some nausea today. Ostomy functioning per usual. O: Gen: alert, nad, nontoxic appearing HEENT: mmm Chest: no wob, ctab CVS: rrr, (-) murmur Abd: soft, mildly tender to palpation, Wounds intact, clean and dry Colorectal: apr site clean, superficial dehiscence, no erythema. no induration 06/10/16 11:46 Objective: Vital Signs Temp Pulse Resp BP Pulse Ox 36.8 C 73 18 131/63 H 96 06/10/16 11:31 06/10/16 11:31 06/10/16 11:31 06/10/16 11:31 06/10/16 11:31 Laboratory Results 06/10/16 06:35 06/10/16 06:35 06/09/16 06/10/16 06/11/16 05:59 05:59 05:59 Intake Total 1420 500 300 Output Total 2204 8756 1850 Balance -7454 -3388 -1550 PT 17.0 SEC (12.0-15.0) H 06/10/16 06:35 INR 1.39 (0.83-1.16) H 06/10/16 06:35 ICD10 Worksheet Patient Problems: Problems Problem Status Onset BPH (benign prostatic hypertrophy) with urinary retention Acute Hydronephrosis Acute Urine retention Acute Dysplastic polyp of rectum Acute
[2016-06-10] MEDS: WARFARIN SODIUM 5 MG TAB PO SCH (15:32)
[2016-06-10] MEDS: ONDANSETRON 4 MG/2 ML VIAL IVP PRN (17:45)
[2016-06-11] MEDS: SIMETHICONE 80 MG TAB CHEW PO PRN ×4 (00:02→21:24)
[2016-06-11] MEDS: CEPHALEXIN 500 MG CAP PO SCH ×5 (00:02→23:08)
[2016-06-11] MEDS: ZOLPIDEM TARTRATE 5 MG TAB PO PRN ×3 (00:02→23:08)
--- NOTE | 2016-06-11 00:02 | GCON ---
[f rep st] CONSULTATION ONCOLOGY INITIAL VISIT PRIMARY ONCOLOGIST: Paul Stevens MD. REASON FOR CONSULTATION: Rectal cancer. HISTORY OF PRESENT ILLNESS: The patient is a 65-year-old gentleman with a history of ulcerative col itis that was initially diagnosed probably 15-20 years ago. He had recurrent bloody stools, and tiffanie chavez developed a toxic megacolon requiring resection about 14 years ago. He had ileostomy and a Radames pouch left. He is undergoing scopes of the remaining rectal stump. He did not have reatta chment because he did not want any further abdominal surgery. More recently, the scope revealed anitha e atypical cells, so he was referred to Dr. Tony, who did an APR, and in that, he had a small color ectal cancer present that has been completely resected. He was recently admitted to the hospital wi th acute kidney injury and dehydration. He has had some problems in the past with his bladder, blad ralph stones and BPH, and last week he was also diagnosed with an acute pulmonary embolism. He is cur rently feeling well, hoping to go out to a rehab unit tomorrow. ALLERGIES: Penicillins and sulfa. PAST MEDICAL HISTORY: Chronic illnesses include ulcerative colitis, recurrent bladder/kidney stones , BPH, hyperglycemia, and insomnia. He also has the recent PE diagnosed on a V/Q scan. Colon cance r, T2 N0 or stage I, 0/27 lymph nodes were positive, it was grade 3. Microsatellite instability is probably intact. PAST SURGICAL HISTORY: Includes the near-total colectomy in 2002, and the more recent surgery and r evision. SOCIAL HISTORY: He is . He has no children. He works in [employer]. He uses alcohol rare ly. Does not use any illicit drugs. He previously smoked for about 35 years, and quit 15 years ago . FAMILY HISTORY: Negative for malignancy. REVIEW OF SYSTEMS: Ten-point review of systems performed. Pertinent positives in HPI, is otherwise negative. PHYSICAL EXAMINATION: VITAL SIGNS: Temperature is 37.1, blood pressure is 111/57, pulse 70. GENER AL: He is a well-appearing man in no distress. HEENT: Unremarkable. LUNGS: Clear. CARDIAC: Re gular. ABDOMEN: Soft. Ileostomy is on the right. NEUROLOGIC: Grossly intact. LABORATORY DATA: His hemoglobin is a little bit low at 7.7, with normal white count and platelet co unt. INR is 1.39. Chemistries unremarkable. His BUN and creatinine were 39 and 3.5 when he was ad mitted a couple weeks ago. His last CEA was 0.84, and his ferritin was 213. Path shows invasive mu cinous adenocarcinoma, grade 3, 0/27 positive lymph nodes. The proximal margin is reported as "posi tive." IMPRESSION: 1. Stage I colon cancer. It has been resected, but with possible positive margins. 2. History of ulcerative colitis. 3. Recent pulmonary embolism. The pulmonary embolism is probably related to the recent surgery, and recommend standard therapy for 3 months. The colon cancer most likely has been cured with surgery, but there is still a question of a possible margin. He has an appointment with Dr. Huynh to see if there might be a benefit to a djuvant radiation, although the benefit may be small. There is not further tissue to go in and surg ically remove, this is per my understanding. Typically, in this situation, there is no role or bene fit from adjuvant chemotherapy. I encouraged him to keep his appointment with Dr. Huynh, and summer w up with Dr. Stevens after that visit. /[id number]
[2016-06-11] MEDS: HYDROCODONE/APAP 10/325 TAB PO PRN ×5 (00:24→23:07)
[2016-06-11 03:09] LABS: % IMMATURE GRANULYOCYTES 0.5 % (0.0-1.1); ABSOLUTE IMMATURE GRANULOCYTES 0.04 10^3/uL (0.00-0.10); ADD DIFF? NO; ADD MORPH? NO; ADD SCAN? NO; ATYPICAL LYMPHOCYTE FLAG 0 (0-99); FRAGMENT RBC FLAG 20 (0-99); HEMATOCRIT 26.1 % (40.0-51.0); LEFT SHIFT FLG 0 (0-99); LIPEMIA HEMOLYSIS FLAG 80 (0-99); MEAN CELL HEMOGLOBIN CONCENTR. 30.7 g/dL (32.4-36.7); MEAN CELL VOLUME 84.7 fL (81.5-99.8); MEAN PLATELET VOLUME 8.9 fL (8.7-11.7); PLATELET CLUMPS FLAG 0 (0-99); PLATELET COUNT 207 10^3/uL (150-400); RED BLOOD CELL COUNT 3.08 10^6/uL (4.40-6.38); RED CELL DISTRIBUTION WIDTH 16.7 % (11.5-15.2)
[2016-06-11 03:18] LABS: INR 1.51 (0.83-1.16); PROTIME(PATIENT) 18.2 SEC (12.0-15.0)
[2016-06-11 03:43] LABS: ANION GAP 9 mEq/L (8-16); CARBON DIOXIDE 31 mEq/l (22-31); CHLORIDE 97 mEq/L (97-110); CREATININE 0.8 mg/dL (0.7-1.3); GLOMERULAR FILTRATION RATE > 60; GLUCOSE 101 mg/dL (70-100); POTASSIUM 3.1 mEq/L (3.5-5.2); SODIUM 137 mEq/L (134-144)
[2016-06-11] MEDS: FUROSEMIDE 40 MG/4 ML VIAL IVP SCH ×2 (07:57→15:28)
[2016-06-11] MEDS: CYANO/VITAMIN B12 1000 MCG TAB PO SCH (07:57)
[2016-06-11] MEDS: ENOXAPARIN 120 MG/0.8 ML SYR SC SCH ×2 (07:57→21:24)
--- NOTE | 2016-06-11 09:54 | HOSPPROG ---
Hospitalist Progress Note Assessment/Plan: Patient is a 65-year-old male who presented to the emergency room with new acute kidney injury. 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 During his stay, he became acutely ill with increased oxygen requirements, tachycardia and shortness of breath. Evaluation included CT scans without contrast of the chest abdomen and pelvis which did reveal an enlarged bladder and fluid collections of unclear chronicity. He decompensated on 06/02/[address] scan showed Mar placement in the prostate with enlarged bladder bilateral hydronephrosis with a question of ureteral rupture and uraroma. Diagnosed with pulmonary embolism on 2016. acute PE with R sided failure - bridge treatment w Lovenox until INR is stable x 2 days noted on the VQ scan coumadin 7.5 INR slow to rise, but it is rising vol overload - Lasix 20 mg iv bid diuresing well w stable renal function 06/11- L neg ELAINE - resolving with resolution of hydronephrosis will dc w mar and outpt urology follow up UTI - keflex D#09/06 MARKS/hydronephrosis/possible ureteral rupture - cont mar, needs UDS with Dr Go as outpatient -do not remove mar at dc thrombocytosis - likely reactive anemia - no need for transfusion now he is feeling tired, but no sig drop in h/h pre-DM - hold metformin high grade rectal dysplasia path actually + for CA w positive margins ulcerative colitis status post subtotal colectomy dispo: needs snf Subjective: case d/w dr christian. tele: no events (interp by me) Objective: Vital Signs Temp Pulse Resp BP Pulse Ox 37.1 C 88 18 117/73 95 06/11/16 07:53 06/11/16 07:53 06/11/16 07:53 06/11/16 07:53 06/11/16 07:53 Laboratory Results 06/11/16 03:00 06/11/16 03:00 06/10/16 06/11/16 06/12/16 05:59 05:59 05:59 Intake Total 500 1350 Output Total 3125 4100 Balance -2625 -2750 PT 18.2 SEC (12.0-15.0) H 06/11/16 03:00 INR 1.51 (0.83-1.16) H 06/11/16 03:00 - Physical Exam Constitutional: no apparent distress, appears nourished Eyes: PERRL, anicteric sclera Ears, Nose, Mouth, Throat: moist mucous membranes, hearing normal Cardiovascular: regular rate and rhythym, no murmur, rub, or gallop Respiratory: no respiratory distress, no rales or rhonchi Gastrointestinal: normoactive bowel sounds, soft, non-tender abdomen, other ( ostomy) Genitourinary: mar in urethra Skin: warm, normal color Musculoskeletal: full muscle strength, other (decreased edema), No pain with ROM Psychiatric: interacting appropriately Lymph, Heme, Immunologic: no cervical LAD ICD10 Worksheet Patient Problems: Problems Problem Status Onset BPH (benign prostatic hypertrophy) with urinary retention Acute Hydronephrosis Acute Urine retention Acute Dysplastic polyp of rectum Acute
[2016-06-11] MEDS: ONDANSETRON DISINTEGRATING 4 MG TAB PO PRN (10:14)
[2016-06-11] MEDS: WARFARIN SODIUM 5 MG TAB PO SCH (15:28)
[2016-06-11] MEDS ORDERED: POTASSIUM CL 20 MEQ/15 ML UDCUP PO SCH (15:30)
[2016-06-11] MEDS: POTASSIUM CL 20 MEQ TAB PO SCH (16:12)
[2016-06-12] MEDS: ZOLPIDEM TARTRATE 5 MG TAB PO PRN (01:57)
[2016-06-12] MEDS: CEPHALEXIN 500 MG CAP PO SCH ×2 (05:25→11:05)
[2016-06-12] MEDS: HYDROCODONE/APAP 10/325 TAB PO PRN ×2 (05:26→10:15)
[2016-06-12 05:47] VITALS: RESP 18
[2016-06-12 05:48] LABS: INR 1.58 (0.83-1.16); PROTIME(PATIENT) 18.9 SEC (12.0-15.0)
[2016-06-12 06:00] LABS: ANION GAP 6 mEq/L (8-16); CARBON DIOXIDE 34 mEq/l (22-31); CHLORIDE 100 mEq/L (97-110); CREATININE 0.8 mg/dL (0.7-1.3); GLOMERULAR FILTRATION RATE > 60; GLUCOSE 92 mg/dL (70-100); POTASSIUM 3.3 mEq/L (3.5-5.2); SODIUM 140 mEq/L (134-144)
[2016-06-12 07:36] VITALS: BP 132/66; PULSE 70; TEMP 97.9; O2SAT 95
[2016-06-12] MEDS: ENOXAPARIN 120 MG/0.8 ML SYR SC SCH (09:03)
[2016-06-12] MEDS: CYANO/VITAMIN B12 1000 MCG TAB PO SCH (09:04)
[2016-06-12] MEDS: POTASSIUM CL 20 MEQ TAB PO SCH (09:04)
[2016-06-12] MEDS: FUROSEMIDE 40 MG/4 ML VIAL IVP SCH (09:04)
--- NOTE | 2016-06-12 09:23 | SOAPPROG ---
[facility] Progress Note Assessment/Plan: Assessment: BPH/hydronephrosis/urine retention UTI- tx with keflex Plan: Catheter to remain in place. Our office will arrange UDS and cystoscopy as out patient. 06/12/16 09:22 Subjective: Same urinary symptoms Objective: Vital Signs Temp Pulse Resp BP Pulse Ox 36.6 C 70 18 132/66 H 95 06/12/16 07:35 06/12/16 07:35 06/12/16 07:35 06/12/16 07:35 06/12/16 07:35 Laboratory Results 06/11/16 03:00 06/12/16 05:30 06/11/16 06/12/16 06/13/16 05:59 05:59 05:59 Intake Total 1350 600 Output Total 4100 2750 Balance -2750 -2150 PT 18.9 SEC (12.0-15.0) H 06/12/16 05:30 INR 1.58 (0.83-1.16) H 06/12/16 05:30 Physical Exam - Physical Exam General Appearance: alert, no apparent distress Respiratory: normal breath sounds, No respiratory distress Male Genitalia: other (clear urine in bag) Skin: normal color Neuro/Psych: no motor/sensory deficits, alert ICD10 Worksheet Patient Problems: Problems Problem Status Onset BPH (benign prostatic hypertrophy) with urinary retention Acute Hydronephrosis Acute Urine retention Acute Dysplastic polyp of rectum Acute
--- NOTE | 2016-06-12 10:29 | PDIAF ---
- Diagnosis Diagnosis: acute renal failure, resolved Code Status: Full Code - Medication Management Discharge Medications: Medications to Continue on Transfer Amitriptyline HCl [Elavil 50 mg (*)] 50 mg PO HS PRN 05/07/16 [Last Taken Unknown] Cholecalciferol Vit D3 [Vitamin D3 (*)] 1,000 units PO DAILY 05/07/16 [Last Taken 05/07/16] Cyanocobalamin [Vitamin B12 (*)] 1,000 mcg PO DAILY 05/07/16 [Last Taken ] metFORMIN HCL [Metformin HCl ER] 500 mg PO DAILY 05/07/16 [Last Taken 05/30/16] traZODone [traZODONE 50MG (*)] 50 mg PO HS PRN 05/07/16 [Last Taken Unknown] Acetaminophen [Tylenol 325mg (*)] 650 mg PO Q4 PRN #0 tab 05/13/16 [Last Taken Unknown] Zolpidem Tartrate [Ambien 5MG (*)] 10 mg PO HS PRN #0 tab 05/13/16 [Last Taken Unknown] Enoxaparin [Lovenox 120 MG (*)] 120 mg SC BID #0 syr 06/12/16 [Last Taken Unknown] HYDROcodone/APAP 10/325 [[place] 10/325 (*)] 1 tab PO Q4H PRN #0 tab 06/12/16 [ Last Taken Unknown] Simethicone [Mylicon] 80 mg PO Q6 PRN #0 tab.chew 06/12/16 [Last Taken Unknown] Warfarin Sodium [Coumadin 5MG (*)] 10 mg PO DAILY AT 4PM #0 tab 06/12/16 [Last Taken Unknown] Discharge Medications: Refer to the Discharge Home Medication list for PRN reason. - Orders Services needed: Physical Therapy, Occupational Therapy Diet Texture: Regular Texture Diet - Labs/Radiology PT/INR Date: 06/13/16 (check inr every other day. continue lovenox until inr > 2 ) - Follow Up Care Current Providers and Referrals: Luis Alberto Go MD [Medical Doctor] - Oc Tony MD [Medical Doctor] - follow up in 1 week Lyric Kumar MD [Primary Care Provider] - Paul Becker MD [Medical Doctor] - 08/02/16 1:30 pm (August 02 2016 at 1:30 at [facility].)
--- NOTE | 2016-06-12 10:36 | HOSPPROG ---
Hospitalist Progress Note Assessment/Plan: Patient is a 65-year-old male who presented to the emergency room with new acute kidney injury. 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 During his stay, he became acutely ill with increased oxygen requirements, tachycardia and shortness of breath. Evaluation included CT scans without contrast of the chest abdomen and pelvis which did reveal an enlarged bladder and fluid collections of unclear chronicity. He decompensated on 06/02/[address] scan showed Mar placement in the prostate with enlarged bladder bilateral hydronephrosis with a question of ureteral rupture and uraroma. Diagnosed with pulmonary embolism on 2016. acute PE with R sided failure - bridge treatment w Lovenox until INR is stable x 2 days noted on the VQ scan coumadin 7.5 INR slow to rise, but it is rising vol overload - Lasix 20 mg iv bid diuresing well w stable renal function 06/12- L neg ELAINE - resolving with resolution of hydronephrosis will dc w mar and outpt urology follow up UTI - keflex D#09/06 MARKS/hydronephrosis/possible ureteral rupture - cont mar, needs UDS with Dr Go as outpatient -do not remove mar at dc thrombocytosis - likely reactive anemia - no need for transfusion now he is feeling tired, but no sig drop in h/h pre-DM - hold metformin high grade rectal dysplasia path actually + for CA w positive margins seen by onc outpatient follow up ulcerative colitis status post subtotal colectomy dispo: to snf > 30 minutes Subjective: ready for dc Objective: Vital Signs Temp Pulse Resp BP Pulse Ox 36.6 C 70 18 132/66 H 95 06/12/16 07:35 06/12/16 07:35 06/12/16 07:35 06/12/16 07:35 06/12/16 07:35 Laboratory Results 06/11/16 03:00 06/12/16 05:30 06/11/16 06/12/16 06/13/16 05:59 05:59 05:59 Intake Total 1350 600 Output Total 4100 2750 Balance -2750 -2150 PT 18.9 SEC (12.0-15.0) H 06/12/16 05:30 INR 1.58 (0.83-1.16) H 06/12/16 05:30 - Physical Exam Constitutional: no apparent distress, appears nourished Eyes: PERRL, anicteric sclera Ears, Nose, Mouth, Throat: moist mucous membranes, hearing normal Cardiovascular: regular rate and rhythym, no murmur, rub, or gallop Respiratory: no respiratory distress, no rales or rhonchi Gastrointestinal: normoactive bowel sounds, soft, non-tender abdomen Genitourinary: mar in urethra Skin: warm, normal color Musculoskeletal: full muscle strength, no muscle tenderness Neurologic: AAOx3 Psychiatric: interacting appropriately Lymph, Heme, Immunologic: no cervical LAD ICD10 Worksheet Patient Problems: Problems Problem Status Onset BPH (benign prostatic hypertrophy) with urinary retention Acute Hydronephrosis Acute Urine retention Acute Dysplastic polyp of rectum Acute
[2016-06-12] MEDS: SIMETHICONE 80 MG TAB CHEW PO PRN (11:05)
--- NOTE | 2016-06-12 11:11 | GDS ---
[f rep st] DISCHARGE SUMMARY DISCHARGE DIAGNOSES: 1. Acute kidney injury, now resolved. 2. Acute pulmonary embolism with syncope, now anticoagulated. 3. Urinary tract infection status post 7 days of Keflex. 4. Volume overload, now diuresed 12 L. 5. Bladder outlet obstruction with possible ureteral rupture, now with indwelling Ching. 6. History of high-grade rectal dysplasia with possible positive margins, with Oncology followup. 7. Deconditioning. HISTORY OF PRESENT ILLNESS: Please see admission history and physical by Dr. Jacque Cueto. The pat ient presented with weakness and urinary difficulties following discharge from abdominal peritoneal resection done in the previous weeks by Dr. Tony. HOSPITAL COURSE: During this hospital stay, he developed a syncopal episode and was diagnosed with pulmonary embolism via V/Q scan. He had renal failure that was felt secondary to prerenal as well a s urinary obstruction. He is now anticoagulated. His creatinine is 0.9. He is significantly decon ditioned, but is improved. He did have a troponin leak with a pulmonary embolism up to 1.3, but no significant workup for ische gaurav was undertaken given his medical complexity. He is discharged to [facility] with outpatient followup with Urology, Oncology and Cardiology. /[id number]/MODL
== END 2016-06-12 13:06 | DRG 682 ==
LOC: FIMAGING 15:26 → EDSTATUS 15:45 → F3E 17:54 → OBSVTOIN 18:17 → F2W 06-02 02:08
PROVIDERS: ADMIT Hospitalist; ATTEND Hospitalist
PROC: 0T9B70Z Drainage of Bladder with Drainage Device, Via Natural or Artificial Opening (ICD-10-PCS; 2016-05-31)
PROC: 02HV33Z Insertion of Infusion Device into Superior Vena Cava, Percutaneous Approach (ICD-10-PCS; principal; 2016-06-03)
DX: N17.9 Acute kidney failure, unspecified (principal); I26.99 Other pulmonary embolism without acute cor pulmonale; N39.0 Urinary tract infection, site not specified; B96.20 Unspecified Escherichia coli [E. coli] as the cause of diseases classified elsewhere; N40.1 Benign prostatic hyperplasia with lower urinary tract symptoms; R33.9 Retention of urine, unspecified; E87.5 Hyperkalemia; C20 Malignant neoplasm of rectum; R73.03 Prediabetes; D64.9 Anemia, unspecified; G47.33 Obstructive sleep apnea (adult) (pediatric); E88.09 Other disorders of plasma-protein metabolism, not elsewhere classified; Z87.891 Personal history of nicotine dependence; Z93.3 Colostomy status; Z87.442 Personal history of urinary calculi; Z85.038 Personal history of other malignant neoplasm of large intestine
CPT/HCPCS: 36415-PO; 85520-90; 97110-GP; 97116-GP; 97161-GP; 97165-GO; 97530-GO; 97530-GP; 97535-GO; A9540; C1751; G0463-PO; G8978-GP-CI; G8978-GP-CJ; G8979-GP-CI; G8981-GP-CI; G8987-GO-CI; G8987-GO-CJ; G8988-GO-CH; J1170; J1644; J1650; J2060; J2405; J2997

== ENCOUNTER 2016-07-09 16:34 | Inpatient (IN) | payer OTHER ==
[2016-07-09] MEDS ORDERED: NS 1,000 ML IV ONE ×2 (17:29)
[2016-07-09] MEDS ORDERED: HYDROmorphONE/DILAUDID 1 MG/ML SYR IVP ONE (17:29)
[2016-07-09] MEDS ORDERED: ONDANSETRON 4 MG/2 ML VIAL IVP ONE (17:29)
--- NOTE | 2016-07-09 17:29 | EDPHY ---
H & P Time Seen by Provider: 07/09/16 16:48 HPI/ROS: Chief complaint. Fever HPI. 65-year-old male with relatively recent diagnosis of rectal cancer with surgery May 07. He had had a catheter for approximately a month and is catheter has been out for 1 week. He had been urinating fairly normally and now in the last 2 days he has had burning and decreased stream with urination. He was prescribed Levaquin yesterday for clinical UTI and took a dose yesterday and today however he has had chills and fever today to 103 degrees. No upper respiratory symptoms, chest pain, shortness of breath. He does have diffuse abdominal pain. Vomiting x3. His rectal stump area is not particularly painful. ROS Constitutional. Fever and chills Eyes. no problems with vision ENT. no sore throat, no nasal drainage Cardiovascular. no chest pain Respiratory. no shortness of breath, no cough Abdominal. Abdominal pain with vomiting . Pain and burning with urination and decreased stream MS. no calf pain/swelling, no neck/back pain, no joint pain Skin. no rash Lymph. no swollen glands Neuro. no headache, no dizziness, no difficulty walking or with speech Past Medical/Surgical History: Past medical history significant for ulcerative colitis, colectomy, bathtub bladder stones, TURP, acute kidney injury, pulmonary embolus Social History: Single, nonsmoker, no alcohol Smoking Status: Former smoker Physical Exam: General Appearance: Alert well-developed male moderate distress vital signs show temp 39.6degrees with heart rate 107. Blood pressure is stable at 120 5/73 Eyes: Pupils equal and round no pallor or injection. ENT, Mouth: Mucous membranes are moist. Respiratory: There are no retractions, lungs are clear to auscultation. Cardiovascular: Regular rate and rhythm. Gastrointestinal: Abdomen is soft diffuse tenderness. There is a right-sided colectomy bag. Neurological: Awake and alert, sensory and motor exams grossly normal. Skin: Warm and dry, no rashes. Musculoskeletal: Neck is supple nontender. Extremities symmetrical, full range of motion. Psychiatric: Patient is oriented X 3, there is no agitation. Constitutional: Initial Vital Signs Temperature (C) 39.6 C H 07/09/16 16:45 Heart Rate 107 H 07/09/16 16:45 Respiratory Rate 18 07/09/16 16:45 Blood Pressure 125/73 H 07/09/16 16:45 O2 Sat (%) 93 07/09/16 16:45 O2 Delivery Mode Room Air Allergies/Adverse Reactions: Penicillins Allergy (Unknown, Verified 07/09/16 16:56) Sulfa (Sulfonamide Antibiotics) Allergy (Unknown, Verified 07/09/16 16:56) Home Medications: Medication Instructions Recorded Cholecalciferol Vit D3 [Vitamin D3 1,000 units PO DAILY 05/07/16 (*)] Cyanocobalamin [Vitamin B12 (*)] 1,000 mcg PO DAILY 05/07/16 Acetaminophen [Tylenol 325mg (*)] 650 mg PO Q4 PRN #0 tab 05/13/16 HYDROcodone/APAP 10/325 [[place] 1 tab PO Q4H PRN #0 tab 06/12/16 10/325 (*)] Simethicone [Mylicon] 80 mg PO Q6 PRN #0 tab.chew 06/12/16 Ascorbic Acid [Vitamin C 250 mg 250 mg PO Q2D 07/09/16 (*)] Ferrous Sulfate [Ferrous Sulf 325 325 mg PO DAILY 07/09/16 MG (*)] Ondansetron Odt [Zofran Odt 4 mg 4 mg PO Q4 PRN 07/09/16 (*)] Warfarin Sodium [Coumadin] 12 mg PO DAILY@1600 07/09/16 Zolpidem Tartrate [Ambien 5MG (*)] 5 - 10 mg PO HS PRN 07/09/16 levOFLOXACIN [levAQUIN (*)] 500 mg PO DAILY 07/09/16 Medical Decision Making - Diagnostics Imaging Results: Imaging Impressions Chest X-Ray 07/09/16 17:03 Impression: Negative portable chest. No pneumonia or effusion. Abdomen CT 07/09/16 17:29 Impression: 1. New posterior perineum fluid collection extending from the apex of the prostate gland to the skin surface may represent a delayed postsurgical abscess , seroma, or atypical urinoma. 2. No intraperitoneal abscess or fluid collection. 3. 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 4. Minimal residual right pelvocaliectasis due to narrowing of the proximal ureter at the ureteropelvic junction due to minimal residual phlegmon. 5. New minimal irregularity of the mid left ureter since 2013 may represent sequela from previously passed renal calculi. Recommend urological follow up. 6. Minimally improved presacral inflammatory process since June 2016. 7. Thick-walled urinary bladder, with numerous diverticula, may be sequela of urinary outlet obstruction versus neurogenic bladder. Findings discussed with Emergency Department physician, Daniel Lopes M.D., at July 09, [address] abdomen and pelvis with IV contrast reviewed by me and discussed with Dr. Larry shows fluid collection in the perineum. This may represent abscess. Procedures: IV normal saline with 2 L ordered. Septic workup including lactate and blood cultures. Dilaudid for pain. Zofran for nausea. Ibuprofen for fever ED Course/Re-evaluation: Patient and I discussed imaging and lab results. We discussed treatment plan including need for admission. He expresses understanding And agreement Dr. melo was already aware of this patient and saw the patient in the emergency department before I called him. Dr. melo would like the patient to be admitted upstairs. Patient is admitted upstairs prior to urinalysis or CT results Differential Diagnosis: I considered pneumonia, urinary tract infection, post surgical abscess - Data Points Laboratory Results: 07/09/16 17:00 VBG Lactic Acid 1.8 mmol/L mmol/L (0.7-2.1) Medications Given: Discontinued Medications Acetaminophen (Tylenol) 1,000 mg PO EDNOW ONE Stop: 07/09/16 17:35 Last Admin: 07/09/16 17:56 Dose: 1,000 mg Hydromorphone HCl (Dilaudid) 1 mg IVP EDNOW ONE Stop: 07/09/16 17:30 Last Admin: 07/09/16 17:57 Dose: 1 mg Sodium Chloride (Ns) 1,000 mls @ 0 mls/hr IV ONCE ONE PRN Reason: Wide Open Stop: 07/09/16 17:30 Last Admin: 07/09/16 19:33 Dose: 1,000 mls Sodium Chloride (Ns) 1,000 mls @ 0 mls/hr IV ONCE ONE PRN Reason: Wide Open Stop: 07/09/16 17:30 Last Admin: 07/09/16 17:57 Dose: 1,000 mls Ondansetron HCl (Zofran) 4 mg IVP EDNOW ONE Stop: 07/09/16 17:30 Last Admin: 07/09/16 17:56 Dose: 4 mg Departure - Departure Disposition: [facility] Inpatient Acute Clinical Impression: Possible perineal abscess Fever Qualifiers: Fever type: due to other condition Qualified Code(s): R50.81 - Fever presenting with conditions classified elsewhere Condition: Fair
[2016-07-09] MEDS ORDERED: IOPAMIDOL (ISOVUE-300) 100 ML BTL IV ONE (17:31)
[2016-07-09] MEDS ORDERED: PROMETHAZINE HCL 25 MG TAB PO PRN (17:33)
[2016-07-09] MEDS ORDERED: ACETAMINOPHEN 500 MG TAB PO ONE (17:34)
[2016-07-09 17:59] LABS: % IMMATURE GRANULYOCYTES 0.6 % (0.0-1.1); ADD DIFF? NO; ADD MORPH? NO; ADD SCAN? NO; ATYPICAL LYMPHOCYTE FLAG 0 (0-99); FRAGMENT RBC FLAG 0 (0-99); HEMATOCRIT 35.8 % (40.0-51.0); HEMOGLOBIN 11.1 g/dL (13.7-17.5); LEFT SHIFT FLG 0 (0-99); LIPEMIA HEMOLYSIS FLAG 80 (0-99); MEAN CELL HEMOGLOBIN 24.8 pg (27.9-34.1); MEAN CELL VOLUME 79.9 fL (81.5-99.8); MEAN PLATELET VOLUME 9.1 fL (8.7-11.7); PLATELET CLUMPS FLAG 0 (0-99); PLATELET COUNT 338 10^3/uL (150-400); RED BLOOD CELL COUNT 4.48 10^6/uL (4.40-6.38); RED CELL DISTRIBUTION WIDTH 17.2 % (11.5-15.2)
[2016-07-09] MEDS ORDERED: ACETAMINOPHEN 500 MG TAB ONE (18:08)
[2016-07-09 18:09] LABS: INR 2.39 (0.83-1.16); PROTIME(PATIENT) 26.3 SEC (12.0-15.0)
[2016-07-09 18:10] LABS: APTT 39.5 SEC (23.0-38.0)
--- NOTE | 2016-07-09 18:15 | CPEKG ---
Heart Rate: 100 RR Interval: 600 P-R Interval: 160 QRSD Interval: 70 QT Interval: 340 QTC Interval: 439 P [place]: 54 QRS [place]: 15 T Wave [place]: 40 EKG Severity - OTHERWISE NORMAL ECG - EKG Impression: SINUS TACHYCARDIA Electronically Signed By: Daniel Lopes 09-Jul-2016 21:29:38
[2016-07-09 18:30] LABS: ANION GAP 12 mEq/L (8-16); BILIRUBIN,TOTAL 1.2 mg/dL (0.1-1.4); CALCIUM 8.9 mg/dL (8.5-10.4); CARBON DIOXIDE 23 mEq/l (22-31); CHLORIDE 103 mEq/L (97-110); GLOMERULAR FILTRATION RATE > 60; GLUCOSE 120 mg/dL (70-100); POTASSIUM 5.5 mEq/L (3.5-5.2); SODIUM 138 mEq/L (134-144); SPECIMEN HEMOLYSIS 126
--- NOTE | 2016-07-09 19:12 | PDGENHP ---
History and Physical - Chief Complaint acute fever - History of Present Illness primary oncologist: Dr. Stevens Primary urologist: Dr. Go Primary general surgeon: Dr. Tony HPI: 65-year-old male presents with acute fever characterized as a temperature of a 103 degrees at home with onset of symptoms 2 days prior and duration intermittent thereafter. Patient reports that the symptoms have been somewhat alleviated by Tylenol at home but they have continued to recur her. He has been experiencing some associated flank pain as well as ongoing peritoneal discomfort. It is difficult for him to discern whether the perineal discomfort is any different than that which he has been experiencing since his surgery in May of 2016. the pain is also somewhat alleviated by the opiate pain medication he takes at home. He contacted Dr. Stevens office and was written a prescription for levofloxacin which the patient again on 07/08 has also taken on 07/09. Despite initiating this antibiotic, he has continued to experience fevers. The patient endorses some associated dysuria. History Information - Allergies/Home Medication List Allergies/Adverse Reactions: Penicillins Allergy (Unknown, Verified 07/09/16 16:56) Sulfa (Sulfonamide Antibiotics) Allergy (Unknown, Verified 07/09/16 16:56) Home Medications: Amitriptyline HCl [Elavil 50 mg (*)] 50 mg PO HS PRN 05/07/16 [Last Taken Unknown] Cholecalciferol Vit D3 [Vitamin D3 (*)] 1,000 units PO DAILY 05/07/16 [Last Taken 05/07/16] Cyanocobalamin [Vitamin B12 (*)] 1,000 mcg PO DAILY 05/07/16 [Last Taken ] metFORMIN HCL [Metformin HCl ER] 500 mg PO DAILY 05/07/16 [Last Taken 05/30/16] traZODone [traZODONE 50MG (*)] 50 mg PO HS PRN 05/07/16 [Last Taken Unknown] Antibx That Starts With "L" 07/09/16 [Last Taken Unknown] I have personally reviewed and updated: family history, medical history, social history, surgical history - Past Medical History diabetes type 2 Additional medical history: Stage I rectal cancer, T2 N0. Pulmonary embolism. BPH. Urinary retention with removal of Mar catheter approximately 10 days ago. Nephrolithiasis. Ulcerative colitis - Surgical History Reports: colectomy Additional surgical history: Jun - Family History Positive for: CAD, hypertension Additional family history: no history of malignancy - Social History Smoking Status: Former smoker Alcohol Use: Occasionally Drug Use: None Additional social history: normally independent in his ADLs Review of Systems ROS: 10pt was reviewed & negative except for what was stated in HPI & below Constitutional: Reports: fever Genitourinary: Reports: dysuria, flank pain, other ( perineal pain) Physical Exam Temp Pulse Resp BP Pulse Ox 39.5 C H 103 H 18 124/73 H 92 07/09/16 18:31 07/09/16 18:31 07/09/16 18:31 07/09/16 18:31 07/09/16 18:31 O2 (L/minute) 2 Constitutional: no apparent distress, appears nourished, not in pain Eyes: PERRL, anicteric sclera, EOMI Ears, Nose, Mouth, Throat: moist mucous membranes, hearing normal, ears appear normal, no oral mucosal ulcers Cardiovascular: tachycardia, No systolic murmur, No irregularly irregular, No edema Respiratory: no respiratory distress, no rales or rhonchi, clear to auscultation Gastrointestinal: normoactive bowel sounds, tenderness ( bilateral flank), No guarding, No distension Genitourinary: no bladder fullness, other ( perineal area is somewhat boggy but not fluctuant and not tender), No mar in urethra Skin: other ( very mild erythema around the peritoneal fold without any induration) Neurologic: AAOx3, sensation intact bilaterally, No weakness Psychiatric: interacting appropriately, not anxious, not encephalopathic, thought process linear Lab Data & Imaging Review 07/09/16 17:54 07/09/16 17:54 WBC 16.47 10^3/uL (3.80-9.50) H 07/09/16 17:54 RBC 4.48 10^6/uL (4.40-6.38) 07/09/16 17:54 Hgb 11.1 g/dL (13.7-17.5) L 07/09/16 17:54 Hct 35.8 % (40.0-51.0) L 07/09/16 17:54 MCV 79.9 fL (81.5-99.8) L 07/09/16 17:54 MCH 24.8 pg (27.9-34.1) L 07/09/16 17:54 MCHC 31.0 g/dL (32.4-36.7) L 07/09/16 17:54 RDW 17.2 % (11.5-15.2) H 07/09/16 17:54 Plt Count 338 10^3/uL (150-400) 07/09/16 17:54 MPV 9.1 fL (8.7-11.7) 07/09/16 17:54 Neut % (Auto) 91.6 % (39.3-74.2) H 07/09/16 17:54 Lymph % (Auto) 2.7 % (15.0-45.0) L 07/09/16 17:54 [place] % (Auto) 4.6 % (4.5-13.0) 07/09/16 17:54 Eos % (Auto) 0.1 % (0.6-7.6) L 07/09/16 17:54 Baso % (Auto) 0.4 % (0.3-1.7) 07/09/16 17:54 Nucleat RBC Rel Count 0.0 % (0.0-0.2) 07/09/16 17:54 Absolute Neuts (auto) 15.09 10^3/uL (1.70-6.50) H 07/09/16 17:54 Absolute Lymphs (auto) 0.45 10^3/uL (1.00-3.00) L 07/09/16 17:54 Absolute Monos (auto) 0.75 10^3/uL (0.30-0.80) 07/09/16 17:54 Absolute Eos (auto) 0.02 10^3/uL (0.03-0.40) L 07/09/16 17:54 Absolute Basos (auto) 0.06 10^3/uL (0.02-0.10) 07/09/16 17:54 Absolute Nucleated RBC 0.00 10^3/uL (0-0.01) 07/09/16 17:54 Immature Gran % 0.6 % (0.0-1.1) 07/09/16 17:54 Immature Gran # 0.10 10^3/uL (0.00-0.10) 07/09/16 17:54 PT 26.3 SEC (12.0-15.0) H 07/09/16 17:54 INR 2.39 (0.83-1.16) H 07/09/16 17:54 APTT 39.5 SEC (23.0-38.0) H 07/09/16 17:54 VBG Lactic Acid 1.8 mmol/L (0.7-2.1) 07/09/16 17:00 Sodium 138 mEq/L (134-144) 07/09/16 17:54 Potassium 5.5 mEq/L (3.5-5.2) H 07/09/16 17:54 Chloride 103 mEq/L (97-110) 07/09/16 17:54 Carbon Dioxide 23 mEq/l (22-31) 07/09/16 17:54 Anion Gap 12 mEq/L (8-16) 07/09/16 17:54 BUN 14 mg/dL (7-23) 07/09/16 17:54 Creatinine 1.0 mg/dL (0.7-1.3) 07/09/16 17:54 Estimated GFR > 60 07/09/16 17:54 Glucose 120 mg/dL (70-100) H 07/09/16 17:54 Calcium 8.9 mg/dL (8.5-10.4) 07/09/16 17:54 Total Bilirubin 1.2 mg/dL (0.1-1.4) 07/09/16 17:54 Specimen Hemolysis 126 07/09/16 17:54 Assessment & Plan Assessment: 65-year-old male presents with sepsis in the setting of suspected urinary tract infection, rectal carcinoma Plan: 1. Sepsis. Acute, new problem this provider, further workup indicated. Evidenced by sepsis -2/ICD S-2 criteria, including leukocytosis, fever, tachycardia, clear source of infection, resulting in autonomic dysregulation in the setting of infection - continue on empiric IV fluids - adjust broad-spectrum antibiotics Get CT of the abdomen and pelvis to rule out entero vesicular fistula or abscess , perinephric - blood cultures and urine culture sent - continue monitor CBC and fever curve 2. Suspected urinary tract infection. Baseline urinary symptoms as well as urinalysis demonstrates positive nitrites - he has had ongoing symptoms despite levofloxacin, adjusted to IV ertapenem given penicillin allergy - monitor urine culture - monitor urine symptoms - as noted above, get CT scan to rule out perinephric abscess 3. Stage I rectal carcinoma. Status post APR by Dr. Tony, continue monitor area for infection 4. Chronic pain with continuous opiate dependency. Patient has required chronic opiates since early May for his perineal pain, continue once reconciled 5. BPH. chronic, monitor for signs of urinary retention, no Mar catheter indicated at this time 6. History of pulmonary embolism. Patient experienced a pulmonary embolism and I have reviewed outside records including 06/12/[address] Marco Oliveira characterizing his most recent hospitalization for PE, acute kidney injury, UTI treated with Keflex, complicated by volume overload - continue on systemic anticoagulation, continue Coumadin once reconciled Diet. Diabetic Prophylaxis. High risk patient, continue systemic anticoagulation Code. Full Disposition. Anticipated discharge uncertain this time, anticipated length stay is greater than 48 hours warranting inpatient admission status for acute sepsis in the setting of high risk comorbid rectal carcinoma, urinary tract infection refractory to outpatient oral antibiotics. I have discussed patient's presentation with Dr. Daniel Lopes in the emergency department, we both agree the patient is stable for transfer to [address] [place] [address] at this time.
[2016-07-09] MEDS: ERTAPENEM 1 GM in NS 100 ML IV SCH (19:33)
[2016-07-09] MEDS: ONDANSETRON DISINTEGRATING 4 MG TAB PO PRN (21:28)
[2016-07-09] MEDS: oxyCODONE IR 5 MG TAB PO PRN (21:29)
[2016-07-09 21:35] LABS: COLOR YELLOW; LEUKOCYTE ESTERASE,URINE 3+ (NEGATIVE); NITRITE,URINE NEGATIVE (NEGATIVE)
[2016-07-09 21:41] LABS: MUCUS TRACE /lpf (NONE-1+); WBC,URINE 50-182 /hpf (0-3)
[2016-07-09 21:42] LABS: RBC,URINE NONE SEEN /hpf (0-3)
[2016-07-09] MEDS ORDERED: SIMETHICONE 80 MG TAB CHEW PO PRN (23:09)
[2016-07-09] MEDS ORDERED: HYDROCODONE/APAP 10/325 TAB PO PRN (23:09)
[2016-07-09] MEDS: ZOLPIDEM TARTRATE 5 MG TAB PO PRN (23:36)
[2016-07-10 05:56] LABS: TROPONIN I < 0.012 ng/mL (0-0.034)
[2016-07-10 06:03] LABS: INR 2.28 (0.83-1.16); PROTIME(PATIENT) 25.3 SEC (12.0-15.0)
[2016-07-10 06:26] LABS: ALANINE AMINOTRANSFERASE 26 IU/L (21-72); ALBUMIN 3.4 g/dL (3.5-5.0); ALKALINE PHOSPHATASE 73 IU/L (38-126); ANION GAP 12 mEq/L (8-16); ASPARTATE AMINOTRANSFERASE 16 IU/L (17-59); BILIRUBIN,TOTAL 0.8 mg/dL (0.1-1.4); CALCIUM 8.5 mg/dL (8.5-10.4); CARBON DIOXIDE 20 mEq/l (22-31); CHLORIDE 107 mEq/L (97-110); CREATININE 0.9 mg/dL (0.7-1.3); GLOMERULAR FILTRATION RATE > 60; GLUCOSE 104 mg/dL (70-100); POTASSIUM 4.3 mEq/L (3.5-5.2); SODIUM 139 mEq/L (134-144)
[2016-07-10] MEDS: oxyCODONE IR 5 MG TAB PO PRN ×4 (06:40→20:08)
[2016-07-10 07:25] LABS: HEMATOCRIT 31.4 % (40.0-51.0); HEMOGLOBIN 9.4 g/dL (13.7-17.5); MEAN CELL HEMOGLOBIN 24.4 pg (27.9-34.1); MEAN CELL HEMOGLOBIN CONCENTR. 29.9 g/dL (32.4-36.7); MEAN CELL VOLUME 81.3 fL (81.5-99.8); RED BLOOD CELL COUNT 3.86 10^6/uL (4.40-6.38); RED CELL DISTRIBUTION WIDTH 17.2 % (11.5-15.2)
[2016-07-10] MEDS: CHOLECALCIFEROL VIT D3 1,000 UNITS TAB PO SCH (09:07)
[2016-07-10] MEDS: FERROUS SULFATE 325 MG TAB PO SCH (09:07)
[2016-07-10] MEDS: CYANO/VITAMIN B12 1000 MCG TAB PO SCH (09:07)
--- NOTE | 2016-07-10 11:15 | HOSPPROG ---
Hospitalist Progress Note Assessment/Plan: # sepsis - resolved; suspect d/t UTI - also consider intra-abd process given CT findings - will d/w Dr Tony # UTI/MARKS - follow UCx from 07/08 - GNR, non-lactose currently - cont invanz - check PVR - may need mar - needs to be done by urology # PE - cont coumadin, therapeutic INR # recent rectal stump resection for rectal carcinoma - follow with Dr Stevens # UC s/p colectomy Subjective: feels better today overall; Objective: Vital Signs Temp Pulse Resp BP Pulse Ox 37.1 C 71 16 123/66 H 95 07/10/16 09:10 07/10/16 09:10 07/10/16 09:10 07/10/16 09:10 07/10/16 09:10 Laboratory Results 07/10/16 07:20 07/10/16 05:12 07/09/16 07/10/16 07/11/16 05:59 05:59 05:59 Intake Total 500 Output Total 375 Balance 125 PT 25.3 SEC (12.0-15.0) H 07/10/16 05:12 INR 2.28 (0.83-1.16) H 07/10/16 05:[address] reviewed CXR personally viewed and interpreted - Physical Exam Constitutional: no apparent distress, appears nourished Cardiovascular: regular rate and rhythym, no murmur, rub, or gallop Respiratory: no respiratory distress, no rales or rhonchi, clear to auscultation Gastrointestinal: normoactive bowel sounds, other (ostomy; well healing incision ; soft, non-tender) ICD10 Worksheet Patient Problems: Problems Problem Status Onset Dysplastic polyp of rectum Acute Urine retention Acute Hydronephrosis Acute BPH (benign prostatic hypertrophy) with urinary retention Acute Fever Acute
[2016-07-10] MEDS: ONDANSETRON DISINTEGRATING 4 MG TAB PO PRN (12:34)
[2016-07-10] MEDS: WARFARIN SODIUM 4 MG TAB PO SCH (15:50)
--- NOTE | 2016-07-10 17:51 | SOAPPROG ---
[facility] Progress Note Assessment/Plan: Assessment/Plan: 65 Y M c UC remote subtotal colectomy c ileostomy, now s/p APR for rectal CA in rectal stump, s/p hospital stay for urinary retention, now admitted with fevers, suspected UTI, and new small pelvic fluid collection. Followed with Drs. Tony, Donavan, and Hilda in outpatient setting. Full note to follow. Suspect symptoms are 2/[address] images. Doubt need for drainage. Would treat UTI and monitor for ongoing fevers/pain/symptoms post treatment. Will d/w Saúl/Jose. Of note, abdomen is soft, abdominal and perineal incisions well healed without erythema, ostomy intact with soft brown stool in bag. 07/10/16 17:47 Objective: Vital Signs Temp Pulse Resp BP Pulse Ox 37.2 C 85 16 117/61 92 07/10/16 16:00 07/10/16 16:00 07/10/16 16:00 07/10/16 16:00 07/10/16 16:00 Laboratory Results 07/10/16 07:20 07/10/16 05:12 07/09/16 07/10/16 07/11/16 05:59 05:59 05:59 Intake Total 500 Output Total 375 675 Balance 125 -675 PT 25.3 SEC (12.0-15.0) H 07/10/16 05:12 INR 2.28 (0.83-1.16) H 07/10/16 05:12 ICD10 Worksheet Patient Problems: Problems Problem Status Onset Fever Acute BPH (benign prostatic hypertrophy) with urinary retention Acute Dysplastic polyp of rectum Acute Hydronephrosis Acute Urine retention Acute
[2016-07-10] MEDS: ERTAPENEM 1 GM in NS 100 ML IV SCH (18:37)
[2016-07-10] MEDS: ZOLPIDEM TARTRATE 5 MG TAB PO PRN (23:07)
[2016-07-10] MEDS: NS 1,000 ML IV SCH (23:35)
[2016-07-11] MEDS: NS 1,000 ML IV SCH (06:11)
[2016-07-11 06:21] LABS: % IMMATURE GRANULYOCYTES 0.4 % (0.0-1.1); ABSOLUTE IMMATURE GRANULOCYTES 0.03 10^3/uL (0.00-0.10); ADD DIFF? NO; ADD MORPH? NO; ADD SCAN? NO; ATYPICAL LYMPHOCYTE FLAG 0 (0-99); FRAGMENT RBC FLAG 0 (0-99); HEMATOCRIT 31.1 % (40.0-51.0); HEMOGLOBIN 9.3 g/dL (13.7-17.5); LEFT SHIFT FLG 0 (0-99); LIPEMIA HEMOLYSIS FLAG 70 (0-99); MEAN CELL HEMOGLOBIN 24.3 pg (27.9-34.1); MEAN CELL HEMOGLOBIN CONCENTR. 29.9 g/dL (32.4-36.7); MEAN CELL VOLUME 81.4 fL (81.5-99.8); MEAN PLATELET VOLUME 9.5 fL (8.7-11.7); PLATELET CLUMPS FLAG 0 (0-99); PLATELET COUNT 303 10^3/uL (150-400); RED BLOOD CELL COUNT 3.82 10^6/uL (4.40-6.38); RED CELL DISTRIBUTION WIDTH 17.1 % (11.5-15.2)
[2016-07-11 06:27] LABS: POTASSIUM 4.2 mEq/L (3.5-5.2)
[2016-07-11 06:28] LABS: ANION GAP 7 mEq/L (8-16); CALCIUM 7.9 mg/dL (8.5-10.4); CARBON DIOXIDE 22 mEq/l (22-31); CHLORIDE 109 mEq/L (97-110); CREATININE 0.8 mg/dL (0.7-1.3); GLOMERULAR FILTRATION RATE > 60; GLUCOSE 97 mg/dL (70-100); SODIUM 138 mEq/L (134-144)
[2016-07-11 06:50] LABS: INR 2.01 (0.83-1.16); PROTIME(PATIENT) 22.9 SEC (12.0-15.0)
[2016-07-11] MEDS: ASCORBIC ACID 250 MG TAB PO SCH (08:46)
[2016-07-11] MEDS: CHOLECALCIFEROL VIT D3 1,000 UNITS TAB PO SCH (08:46)
[2016-07-11] MEDS: oxyCODONE IR 5 MG TAB PO PRN ×5 (08:46→22:40)
[2016-07-11] MEDS: CYANO/VITAMIN B12 1000 MCG TAB PO SCH (08:46)
[2016-07-11] MEDS: FERROUS SULFATE 325 MG TAB PO SCH (08:46)
--- NOTE | 2016-07-11 13:05 | HOSPPROG ---
Hospitalist Progress Note Assessment/Plan: # sepsis - resolved; suspect d/t UTI - also consider intra-abd process given CT findings - appreciate gen surg assistance # UTI/MARKS - UCx from 07/08 carlson sens e. coli - invanz -> levaquin today - restart methenamine on dc - PVR 300, recheck today - hold on mar for now # PE - cont coumadin, therapeutic INR # recent rectal stump resection for rectal carcinoma - follow with Dr Stevens # UC s/p colectomy Subjective: continues to feel well Objective: Vital Signs Temp Pulse Resp BP Pulse Ox 36.9 C 78 18 105/69 93 07/11/16 11:38 07/11/16 11:38 07/11/16 11:38 07/11/16 11:38 07/11/16 11:38 Laboratory Results 07/11/16 05:34 07/11/16 05:34 07/10/16 07/11/16 07/12/16 05:59 05:59 05:59 Intake Total 500 2953 Output Total 375 1050 600 Balance 125 1903 -600 PT 22.9 SEC (12.0-15.0) H 07/11/16 05:34 INR 2.01 (0.83-1.16) H 07/11/16 05:34 chart reviewed including Dee Varghese's note - Physical Exam Constitutional: no apparent distress Cardiovascular: regular rate and rhythym, no murmur, rub, or gallop, systolic murmur Respiratory: no respiratory distress, no rales or rhonchi, clear to auscultation Gastrointestinal: normoactive bowel sounds, soft, non-tender abdomen, other ( ostomy) ICD10 Worksheet Patient Problems: Problems Problem Status Onset Dysplastic polyp of rectum Acute Urine retention Acute Hydronephrosis Acute BPH (benign prostatic hypertrophy) with urinary retention Acute Fever Acute
[2016-07-11] MEDS: WARFARIN SODIUM 4 MG TAB PO SCH (15:53)
[2016-07-11] MEDS: ONDANSETRON DISINTEGRATING 4 MG TAB PO PRN (19:47)
--- NOTE | 2016-07-11 22:18 | SOAPPROG ---
SOAP Progress Note Assessment/Plan: Assessment: 65 year old. much improved today. new fluid collection that is 5x9 ? seroma. Unlikely abscess as is non tender and normal WBC. Will continue to follow. Can alway have collection drained to rule out abscess Plan: 07/11/16 22:17 Objective: Vital Signs Temp Pulse Resp BP Pulse Ox 37.4 C 83 18 131/65 H 93 07/11/16 19:39 07/11/16 19:39 07/11/16 19:39 07/11/16 19:39 07/11/16 19:39 Laboratory Results 07/11/16 05:34 07/11/16 05:34 07/10/16 07/11/16 07/12/16 05:59 05:59 05:59 Intake Total 500 2953 3800 Output Total 375 1050 1850 Balance 125 1903 1950 PT 22.9 SEC (12.0-15.0) H 07/11/16 05:34 INR 2.01 (0.83-1.16) H 07/11/16 05:34 ICD10 Worksheet Patient Problems: Problems Problem Status Onset Fever Acute BPH (benign prostatic hypertrophy) with urinary retention Acute Dysplastic polyp of rectum Acute Hydronephrosis Acute Urine retention Acute
[2016-07-11] MEDS: ZOLPIDEM TARTRATE 5 MG TAB PO PRN (22:44)
[2016-07-12] MEDS: ACETAMINOPHEN 325 MG TAB PO PRN ×2 (00:53→14:18)
[2016-07-12] MEDS: oxyCODONE IR 5 MG TAB PO PRN ×6 (02:13→22:28)
[2016-07-12] MEDS: NS 1,000 ML IV SCH ×2 (02:15→23:18)
[2016-07-12 05:33] LABS: % IMMATURE GRANULYOCYTES 0.4 % (0.0-1.1); ABSOLUTE IMMATURE GRANULOCYTES 0.03 10^3/uL (0.00-0.10); ADD DIFF? NO; ADD MORPH? NO; ADD SCAN? NO; ATYPICAL LYMPHOCYTE FLAG 0 (0-99); FRAGMENT RBC FLAG 20 (0-99); HEMATOCRIT 28.9 % (40.0-51.0); HEMOGLOBIN 8.8 g/dL (13.7-17.5); LEFT SHIFT FLG 0 (0-99); LIPEMIA HEMOLYSIS FLAG 80 (0-99); MEAN CELL HEMOGLOBIN 24.6 pg (27.9-34.1); MEAN CELL HEMOGLOBIN CONCENTR. 30.4 g/dL (32.4-36.7); MEAN CELL VOLUME 80.7 fL (81.5-99.8); MEAN PLATELET VOLUME 9.3 fL (8.7-11.7); PLATELET CLUMPS FLAG 20 (0-99); PLATELET COUNT 322 10^3/uL (150-400); RED BLOOD CELL COUNT 3.58 10^6/uL (4.40-6.38); RED CELL DISTRIBUTION WIDTH 16.8 % (11.5-15.2)
[2016-07-12 05:42] LABS: INR 1.96 (0.83-1.16); PROTIME(PATIENT) 22.4 SEC (12.0-15.0)
[2016-07-12 05:55] LABS: ANION GAP 9 mEq/L (8-16); CARBON DIOXIDE 22 mEq/l (22-31); CHLORIDE 107 mEq/L (97-110); CREATININE 0.8 mg/dL (0.7-1.3); GLOMERULAR FILTRATION RATE > 60; GLUCOSE 100 mg/dL (70-100); POTASSIUM 4.1 mEq/L (3.5-5.2); SODIUM 138 mEq/L (134-144)
[2016-07-12] MEDS: CHOLECALCIFEROL VIT D3 1,000 UNITS TAB PO SCH (09:04)
[2016-07-12] MEDS: CYANO/VITAMIN B12 1000 MCG TAB PO SCH (09:04)
[2016-07-12] MEDS: FERROUS SULFATE 325 MG TAB PO SCH (09:04)
[2016-07-12] MEDS: ONDANSETRON 4 MG/2 ML VIAL IVP PRN (09:04)
--- NOTE | 2016-07-12 09:57 | HOSPPROG ---
Hospitalist Progress Note Assessment/Plan: 65-year-old man with history of ulcerative colitis status post remote colectomy , recent rectal stump resection for dysplasia. He also has history of a pulmonary embolus at the beginning of June. Presented with sepsis. Resolved on Invanz. Initial consideration was that this was likely urinary tract infection however given his recurrent fever last night, will consider fluid collections in his abdomen. Dr. Hays and has been covering for Dr. Tony this week, Dr. Tony will return tomorrow and re-evaluate. Also discussed with Dr. Hollins today who will consult. Will hold his warfarin tonight, give him 1 dose of Lovenox, recheck his INR tomorrow. # sepsis - resolved; seems less likely d/t UTI given recurrent fever - ID eval today # posterior perineum fluid collection - Dr Tony to eval tomorrow regarding sampling vs drainage of collection # UTI/MARKS - UCx from 07/08 carlson sens e. coli - has been on levaquin, ID to decide on abx today - consider methenamine on dc # PE last June - hold coumadin today, one dose of lovenox tonight # recent rectal stump resection for rectal carcinoma - follows with Dr Stevens # UC s/p colectomy Subjective: fever last night; slight abd bloating today Objective: Vital Signs Temp Pulse Resp BP Pulse Ox 36.4 C 66 16 111/67 95 07/12/16 07:43 07/12/16 07:43 07/12/16 07:43 07/12/16 07:43 07/12/16 07:43 Laboratory Results 07/12/16 04:43 07/12/16 04:43 07/11/16 07/12/16 07/13/16 05:59 05:59 05:59 Intake Total 2953 6791 Output Total 1050 3300 Balance 1903 3491 PT 22.4 SEC (12.0-15.0) H 07/12/16 04:43 INR 1.96 (0.83-1.16) H 07/12/16 04:43 high risk with recurrent fever - Physical Exam Constitutional: no apparent distress, appears nourished Cardiovascular: regular rate and rhythym, no murmur, rub, or gallop Respiratory: no respiratory distress, no rales or rhonchi, clear to auscultation Gastrointestinal: normoactive bowel sounds, soft, non-tender abdomen, other ( ostomy) ICD10 Worksheet Patient Problems: Problems Problem Status Onset Dysplastic polyp of rectum Acute Urine retention Acute Hydronephrosis Acute BPH (benign prostatic hypertrophy) with urinary retention Acute Fever Acute
[2016-07-12] MEDS ORDERED: ERTAPENEM 1 GM in NS 100 ML IV SCH (10:00)
--- NOTE | 2016-07-12 10:49 | SOAPPROG ---
[facility] Progress Note Assessment/Plan: Assessment: 65 year old s/p difficult APR with difficult course. Admitted with UTI and on CT has a fluid collection from above prostate towards incision. However there is no erythema on his bottom. He is minimally tender. His white count is normal. He did spike a fever again. I do believe that this needs to be drained but he is on warfarin due to his history of a PE. He will discontinue warfarin tonight and hopefully this will get drained either surgically or aspirated in the next couple of days. I discussed the course with Dr. Hollins, Dr. navarro leg and with the patient. I personally reviewed the CT scan with Radiology Plan: 07/11/16 22:17 07/12/16 10:46 Objective: Vital Signs Temp Pulse Resp BP Pulse Ox 36.4 C 66 16 111/67 95 07/12/16 07:43 07/12/16 07:43 07/12/16 07:43 07/12/16 07:43 07/12/16 07:43 Laboratory Results 07/12/16 04:43 07/12/16 04:43 07/11/16 07/12/16 07/13/16 05:59 05:59 05:59 Intake Total 2953 6791 Output Total 1050 3300 Balance 1903 3491 PT 22.4 SEC (12.0-15.0) H 07/12/16 04:43 INR 1.96 (0.83-1.16) H 07/12/16 04:43 ICD10 Worksheet Patient Problems: Problems Problem Status Onset Fever Acute BPH (benign prostatic hypertrophy) with urinary retention Acute Dysplastic polyp of rectum Acute Hydronephrosis Acute Urine retention Acute
[2016-07-12] MEDS: ERTAPENEM 1 GM in NS 100 ML IV SCH (12:03)
--- NOTE | 2016-07-12 14:39 | GCON ---
[f rep st] CONSULTATION INFECTIOUS DISEASES CONSULTATION DATE OF CONSULTATION: 07/12/2016 REASON FOR CONSULTATION: Fever. HISTORY OF PRESENT ILLNESS: A 65-year-old male with a past medical history of rectal carcinoma, recently undergoing abdominoperineal resection on 05/07/2016, who was in his usual state of health until July 07 when he had the sudden onset of fever and rigors. The patient was seen the following day in Hematology/ Oncology and patient complained of fever. He also was having some mild dysuria , but not as bad as prior episodes of UTIs. Notably, urinary system was of concern because a urinary catheter that was in place for 1 month, was recently removed 06/28/2016. The patient felt he was emptying his bladder appropriately. A urinalysis was performed and a urine culture, and patient ended up growing 100,000 carlson susceptible E coli. The patient was started on levofloxacin, but symptoms persisted and he was subsequently admitted on the for evaluation. In addition, the patient developed increasing perineal pain which he describes as a constant pressure and intermittent sharp pains. He has no drainage from that area that he is aware of. A CT scan was performed on the day of admission and personally reviewed by me, which shows a perineal abscess that is 5 x 9 x 2.5 cm immediately below adjacent to the skin. The patient reports feeling slightly improved since admission, but has had continued perineal pain. PAST MEDICAL HISTORY: 1. Stage I rectal cancer, T2 N0. 2. Pulmonary embolism on Coumadin. 3. BPH. 4. Urinary retention due to BPH. 5. Bladder stones. 6. Ulcerative colitis. PAST SURGICAL HISTORY: Colectomy 10 years ago and abdominoperineal resection in May of 2016. FAMILY HISTORY: Positive for coronary artery disease. No family history of malignancy. SOCIAL HISTORY: Smoking history: Patient is a former smoker. Occasional alcohol. No drug use. No recent travel. ALLERGIES: Penicillin; reaction occurred in childhood; unknown reaction. Sulfa ; reaction occurred in childhood; unknown reaction. MEDICATIONS: Tylenol, [place] 10/325, vitamin C, vitamin D. The patient received ertapenem from 07/09 to 07/10. Changed to Levaquin 07/11 and 07/12. Also on iron, Zofran, oxycodone as needed, Phenergan, simethicone, vitamin B, Coumadin, and Ambien. REVIEW OF SYSTEMS: A complete 10-point review of systems was performed and is negative, except as mentioned in the HPI. PHYSICAL EXAM: VITAL SIGNS: Blood pressure 111/67, heart rate 66, respirations 16, saturation 95% on room air, temperature 36.4. The patient's last fever was at midnight on 07/12/2016 at 38.7. Prior fever to that was on . GENERAL: This is a very pleasant male sitting up in bed with fluent speech. In no acute distress. HEENT: Pupils are reactive bilaterally. Oropharynx: Moist mucous membranes, no oral ulcerations or exudate. NECK: Supple. No lymphadenopathy. CARDIOVASCULAR: Regular rate. No murmurs. CHEST : Clear to auscultation bilaterally. ABDOMEN: Soft, nontender. He had an ileostomy in place in the right lower quadrant. The midline surgical incision was well healed. His belly was nontender. RECTUM: Perineal exam demonstrated very faint inflammation at the site of perineal revision with clear fluctuance over the midline area. No drainage. EXTREMITIES: Patient had trace lower extremity edema. No obvious joint swelling. SKIN: Without rashes. He had a peripheral IV in the left forearm. NEUROLOGICAL: He is moving all 4 extremities equally. He is alert oriented x4. PSYCH: He had appropriate affect. LABORATORY: White count on admission was 15,000, today is 8000, hematocrit 28, platelets of 322. INR 1.9. Creatinine 0.8. LFTs were within normal limits. Four sets of blood cultures were drawn on 07/09 and are no growth to date. He has another set of blood cultures pending from 04/14. IMAGING: As per HPI. ASSESSMENT AND PLAN: This is a 65-year-old male with a history of rectal carcinoma with recent abdominoperineal resection who presented with a fever, leukocytosis, with some clinical improvement while on antibiotics, but persistent fever likely related to undrained abscess in the perineal region. Suspect GI or skin organisms such as staph, strep, Enterobacteriaceae, anaerobe. This care was coordinated with Surgery and Hospitalist Service. ASSESS: 1. Fever likely secondary to abscess in surgical bed of perineum 2. Urine culture positive for carlson-susceptible E coli 3. Childhood reaction to PCN, doubt true allergy PLAN: 1. Continue ertapenem 1 g IV daily. 2. Await Dr. Tony' evaluation, but currently findings are suggestive that this area may need drainage. Hospitalist team is addressing anticoagulation issues so that if Dr. Tony feels drainage is necessary, they will be able to proceed immediately. Would send cultures. 3. Will continue to follow blood cultures. Time 65 min >50% time spent with education and counseling about antibiotic therapy, likely organisms and possible drainage. Thank you for this consultation. Will continue to follow along with you on a daily basis. /[id number]/MODL MTDD
[2016-07-12] MEDS: LORazepam 0.5 MG TAB PO PRN (18:05)
[2016-07-12] MEDS ORDERED: ENOXAPARIN 100 MG/ML SYR SC ONE (21:00)
[2016-07-12] MEDS: ZOLPIDEM TARTRATE 5 MG TAB PO PRN (22:27)
[2016-07-12] MEDS ORDERED: NS 1,000 ML IV SCH (23:30)
[2016-07-13] MEDS: ACETAMINOPHEN 325 MG TAB PO PRN ×2 (00:48→18:03)
[2016-07-13 05:29] LABS: % IMMATURE GRANULYOCYTES 0.5 % (0.0-1.1); ABSOLUTE IMMATURE GRANULOCYTES 0.04 10^3/uL (0.00-0.10); ADD DIFF? NO; ADD MORPH? NO; ADD SCAN? NO; ATYPICAL LYMPHOCYTE FLAG 0 (0-99); FRAGMENT RBC FLAG 20 (0-99); HEMATOCRIT 29.8 % (40.0-51.0); LEFT SHIFT FLG 0 (0-99); LIPEMIA HEMOLYSIS FLAG 80 (0-99); MEAN CELL HEMOGLOBIN 24.3 pg (27.9-34.1); MEAN CELL HEMOGLOBIN CONCENTR. 30.2 g/dL (32.4-36.7); MEAN CELL VOLUME 80.5 fL (81.5-99.8); MEAN PLATELET VOLUME 9.3 fL (8.7-11.7); PLATELET CLUMPS FLAG 0 (0-99); PLATELET COUNT 383 10^3/uL (150-400); RED CELL DISTRIBUTION WIDTH 16.8 % (11.5-15.2)
[2016-07-13 05:34] LABS: INR 1.79 (0.83-1.16); PROTIME(PATIENT) 20.9 SEC (12.0-15.0)
[2016-07-13 05:56] LABS: ANION GAP 7 mEq/L (8-16); CALCIUM 8.2 mg/dL (8.5-10.4); CARBON DIOXIDE 24 mEq/l (22-31); CHLORIDE 106 mEq/L (97-110); CREATININE 0.8 mg/dL (0.7-1.3); GLOMERULAR FILTRATION RATE > 60; GLUCOSE 95 mg/dL (70-100); POTASSIUM 4.3 mEq/L (3.5-5.2); SODIUM 137 mEq/L (134-144)
[2016-07-13] MEDS: oxyCODONE IR 5 MG TAB PO PRN ×4 (08:09→19:39)
[2016-07-13] MEDS: ERTAPENEM 1 GM in NS 100 ML IV SCH (09:14)
[2016-07-13] MEDS: ONDANSETRON 4 MG/2 ML VIAL IVP PRN (10:32)
--- NOTE | 2016-07-13 11:17 | SOAPPROG ---
SOAP Progress Note Assessment/Plan: Assessment: DOING OK SP APR AFEBRILE BUT SOME PELVIC PAIN CT SHOWS SMALL COLLECTION IN PELVIS NEEDS DRAINAGE/ RISKS AND OPTIONS FULLY DISCUSSED WBC OK/ INT 1.8 Plan:CONSULT FOR CT DRAINAGE 07/13/16 11:15 Objective: Vital Signs Temp Pulse Resp BP Pulse Ox 36.9 C 86 16 95/65 L 93 07/13/16 08:00 07/13/16 08:00 07/13/16 08:00 07/13/16 08:00 07/13/16 08:00 Laboratory Results 07/13/16 05:07 07/13/16 05:07 07/12/16 07/13/16 07/14/16 05:59 05:59 05:59 Intake Total 6791 4186 Output Total 3300 2400 Balance 3491 1786 PT 20.9 SEC (12.0-15.0) H 07/13/16 05:07 INR 1.79 (0.83-1.16) H 07/13/16 05:07 ICD10 Worksheet Patient Problems: Problems Problem Status Onset Fever Acute BPH (benign prostatic hypertrophy) with urinary retention Acute Dysplastic polyp of rectum Acute Hydronephrosis Acute Urine retention Acute
[2016-07-13] MEDS: ASCORBIC ACID 250 MG TAB PO SCH (11:37)
[2016-07-13] MEDS: CHOLECALCIFEROL VIT D3 1,000 UNITS TAB PO SCH (11:37)
[2016-07-13] MEDS: FERROUS SULFATE 325 MG TAB PO SCH (11:38)
[2016-07-13] MEDS: CYANO/VITAMIN B12 1000 MCG TAB PO SCH (11:38)
[2016-07-13] MEDS ORDERED: NA BICARBONATE 50 MEQ/50 ML VIAL ONE (13:38)
[2016-07-13] MEDS ORDERED: LIDOCAINE 1% 30 ML SDV ONE (13:38)
[2016-07-13] MEDS ORDERED: fentaNYL 100 MCG/2 ML INJ ONE (14:29)
[2016-07-13] MEDS ORDERED: MIDAZOLAM 2 MG/2 ML VIAL ONE (14:29)
--- NOTE | 2016-07-13 15:04 | POSTOPPROG ---
Post Op Note Date of Operation: 07/13/16 Surgeon: Shelia Ramirez Anesthesia: IV Sedation Pre-op Diagnosis: postop fluid Post-op Diagnosis: same Indication: ? abscess Procedure: US guided drain placement Findings: 30cc very complext posterior buttock fluid drained Inf/Abcess present in the surg proc area at time of surgery?: Yes Depth: Superfical (Skin SQ) EBL: Minimal Complications: none Drains: Other (10Fr pigtail)
--- NOTE | 2016-07-13 16:11 | PCMIDPN ---
Assessment/Plan: Assessment/Plan: 1. Posterior buttock abscess: -s/p IR drainage today. Cx sent-pending -Currently on invanz. -wbc overall improved. -blood cx ngtd -plan of care reviewed with patient, . Meds invanz 1g daily- 07/09/16 Subjective: Afebrile. s/p IR drainage of abscess. Feels improvement in overall pressure in the region. denies sob. Some abd pain that has been going on intermittently since post surgery. Objective: Vital Signs Temp Pulse Resp BP Pulse Ox 37.2 C 75 16 116/65 93 07/13/16 12:00 07/13/16 12:00 07/13/16 12:00 07/13/16 12:00 07/13/16 12:00 Laboratory Results 07/13/16 05:07 07/13/16 05:07 07/12/16 07/13/16 07/14/16 05:59 05:59 05:59 Intake Total 6791 4186 Output Total 3300 2400 650 Balance 3491 1786 -650 - Physical Exam General Appearance: alert, no apparent distress Respiratory: lungs clear Cardiac/Chest: regular rate, rhythm Extremities: No swelling Abdomen: normal bowel sounds, soft, other (mildly tender), No distended Skin: No rash ICD10 Worksheet Patient Problems: Problems Problem Status Onset Fever Acute BPH (benign prostatic hypertrophy) with urinary retention Acute Dysplastic polyp of rectum Acute Hydronephrosis Acute Urine retention Acute
--- NOTE | 2016-07-13 19:56 | HOSPPROG ---
Hospitalist Progress Note Assessment/Plan: The patient is a 65-year-old male with PMH ulcerative colitis, S/P colectomy, PE who was admitted for sepsis secondary to UTI. He also had been complaining of perineal pain. ASSESSMENT/PLAN: Sepsis, resolved Posterior perineum fluid collection/pain -suspect abscess UTI History of stage I rectal carcinoma, status post stump resection Chronic pain with opiate dependence BPH History of PE History of ulcerative colitis, status post partial colectomy Anemia -Perineal fluid collection drain by IR today. Follow-up fluid studies/culture. -IV antibiotics per infectious disease specialist. -surgery recommendations appreciated -patient may eat after procedure today. -warfarin on hold in case of surgery. VTE prophylaxis: Lovenox full dose for history PE Code Status: Full code Status: Inpatient Disposition: Med [facility] [place] This patient is new to me. Reviewed patient's chart/records for this visit. Personally discussed case with RN. ____ SUBJECTIVE: Today patient continues to complain of pain in perineum. Patient was seen before he was sent to Radiology for abscess drainage. OBJECTIVE: Physical Exam: General: The patient is an elderly man who is alert and in no acute distress. HEENT: normocephalic, extraocular movements intact, conjunctivae clear. Mucous membranes moist. Neck: trachea midline, no visible masses. CV: +S1/S2, RRR, no MRG. Resp: unlabored, CTAB no RRW. Abd: soft and nondistended. Bowel sounds present. Non tender throughout. Colostomy in place. Musculoskeletal: Normal muscle tone/bulk. Neuro: cranial nerves II XII grossly intact. Intact gross motor and sensory function. Psych: Appropriate mood and appropriate affect. Skin: Mild pallor. No petechiae. Heme/lymph: +1 pitting edema pretibial right lower extremity, trace edema left lower extremity. Labs/Imaging/Other Tests: Personally reviewed/interpreted. Objective: Vital Signs Temp Pulse Resp BP Pulse Ox 36.6 C 75 15 125/59 H 92 07/13/16 19:52 07/13/16 19:52 07/13/16 19:52 07/13/16 19:52 07/13/16 19:52 Microbiology 07/13/16 14:45 Gram Stain - Final Buttock - Swab Laboratory Results 07/13/16 05:07 07/13/16 05:07 07/12/16 07/13/16 07/14/16 05:59 05:59 05:59 Intake Total 6758 4186 900 Output Total 3300 2400 1065 Balance 3491 1786 -165 PT 20.9 SEC (12.0-15.0) H 07/13/16 05:07 INR 1.79 (0.83-1.16) H 07/13/16 05:07 ICD10 Worksheet Patient Problems: Problems Problem Status Onset Fever Acute BPH (benign prostatic hypertrophy) with urinary retention Acute Dysplastic polyp of rectum Acute Hydronephrosis Acute Urine retention Acute
[2016-07-13] MEDS: ZOLPIDEM TARTRATE 5 MG TAB PO PRN (21:52)
[2016-07-14] MEDS: LORazepam 0.5 MG TAB PO PRN ×3 (01:44→21:30)
[2016-07-14] MEDS: oxyCODONE IR 5 MG TAB PO PRN ×4 (08:26→19:47)
--- NOTE | 2016-07-14 08:40 | SOAPPROG ---
SOAP Progress Note Assessment/Plan: Assessment: DOING OK SP APR AFEBRILE BUT SOME PELVIC PAIN CT SHOWS SMALL COLLECTION IN PELVIS NEEDS DRAINAGE/ RISKS AND OPTIONS FULLY DISCUSSED WBC OK/ INT 1.8 Plan:CONSULT FOR CT DRAINAGE 07/13/16 11:15 07/14/16 08:39 comfortable/ afebrile/ minimal phong drainage/ eating well/ home soon Objective: Vital Signs Temp Pulse Resp BP Pulse Ox 37.1 C 79 18 121/65 H 93 07/14/16 08:11 07/14/16 08:11 07/14/16 08:11 07/14/16 08:11 07/14/16 08:11 Microbiology 07/13/16 14:45 Gram Stain - Final Buttock - Swab Laboratory Results 07/13/16 05:07 07/13/16 05:07 07/13/16 07/14/16 07/15/16 05:59 05:59 05:59 Intake Total 4186 1100 Output Total 2400 1930 750 Balance 1786 -830 -750 PT 20.9 SEC (12.0-15.0) H 07/13/16 05:07 INR 1.79 (0.83-1.16) H 07/13/16 05:07 ICD10 Worksheet Patient Problems: Problems Problem Status Onset Fever Acute BPH (benign prostatic hypertrophy) with urinary retention Acute Dysplastic polyp of rectum Acute Hydronephrosis Acute Urine retention Acute
[2016-07-14] MEDS ORDERED: [UNRECOGNIZED DRUG - REMARK] IV SCH (09:15)
[2016-07-14] MEDS: FERROUS SULFATE 325 MG TAB PO SCH (09:40)
[2016-07-14] MEDS: CHOLECALCIFEROL VIT D3 1,000 UNITS TAB PO SCH (09:40)
[2016-07-14] MEDS: ERTAPENEM 1 GM in NS 100 ML IV SCH (09:40)
[2016-07-14] MEDS: CYANO/VITAMIN B12 1000 MCG TAB PO SCH (09:40)
--- NOTE | 2016-07-14 10:22 | PCMIDPN ---
Assessment/Plan: Assessment/Plan: 1. Posterior buttock abscess: - 5 x9 cm -s/p IR drainage 07/13/16. GS with no org, cx pending -Currently on invanz. -=afebrile x 24 hours -wbc overall improved. -blood cx ngtd -Continue with IV antbiotics for now. -plan of care reviewed with patient - care coordinated with hospitalist team Lou hudson 1g daily- 07/09/16 Subjective: Afebrile x 24 hours. Continues to feel better with less overall pain and pressure. Drain in place with mixed purulent/serous drainage. Denies sob. Has some abdominal sensitivity. Ileostomy present. Objective: Vital Signs Temp Pulse Resp BP Pulse Ox 37.1 C 79 18 121/65 H 93 07/14/16 08:11 07/14/16 08:11 07/14/16 08:11 07/14/16 08:11 07/14/16 08:11 Microbiology 07/13/16 14:45 Gram Stain - Final Buttock - Swab Laboratory Results 07/13/16 05:07 07/13/16 05:07 07/13/16 07/14/16 07/15/16 05:59 05:59 05:59 Intake Total 4186 1100 Output Total 2400 1930 750 Balance 1786 -830 -750 - Physical Exam General Appearance: alert, no apparent distress Respiratory: lungs clear Cardiac/Chest: regular rate, rhythm Extremities: No swelling Abdomen: non-tender, soft, other (ileostomy), No distended Skin: other (left buttocks with drain noted. brawny discoloration noted. mild induration noted near drain. tender above and below region ofdrain on left side) , No rash ICD10 Worksheet Patient Problems: Problems Problem Status Onset Fever Acute BPH (benign prostatic hypertrophy) with urinary retention Acute Dysplastic polyp of rectum Acute Hydronephrosis Acute Urine retention Acute
[2016-07-14] MEDS: ENOXAPARIN 100 MG/ML SYR SC SCH ×2 (10:36→21:24)
--- NOTE | 2016-07-14 15:20 | HOSPPROG ---
Hospitalist Progress Note Assessment/Plan: The patient is a 65-year-old male with PMH ulcerative colitis, S/P colectomy, PE who was admitted for sepsis secondary to UTI. He also had been complaining of perineal pain. ASSESSMENT/PLAN: Sepsis, resolved Posterior perineum abscess, s/p drainage 05/13/16 UTI History of stage I rectal carcinoma, status post stump resection Chronic pain with opiate dependence BPH History of PE History of ulcerative colitis, status post partial colectomy Anemia -Perineal fluid collection drain placed yesterday. -IV antibiotics per infectious disease specialist. -surgery recommendations appreciated - anticipates DC on Friday or Friday. -ID recs appreciated - final C/S pending. Invanz. -warfarin resumed, bridging w/ Lovenox. Check INR in AM. VTE prophylaxis: Lovenox full dose for history PE Code Status: Full code Status: Inpatient -- plan for DC to home in 24-28hrs. Disposition: Med surg Personally discussed case with RN, Surgeon, and ID specialist. ____ SUBJECTIVE: Today patient feels much better. Denies pain in perineum/gluteal area. Drain is not bothersome, he able to sit w/o discomfort. OBJECTIVE: Physical Exam: General: The patient is an elderly man who is alert and in no acute distress. HEENT: normocephalic, extraocular movements intact, conjunctivae clear. Mucous membranes moist. Neck: trachea midline, no visible masses. CV: +S1/S2, RRR, no MRG. Resp: unlabored, CTAB no RRW. Abd: soft and nondistended. Bowel sounds present. Colostomy in place. Musculoskeletal: Normal muscle tone/bulk. +SHARON drain insertion of gluteal cleft , held in place with C/D/I dressing/tape Neuro: cranial nerves II XII grossly intact. Intact gross motor and sensory function. Psych: Appropriate mood and appropriate affect. Skin: Mild pallor. No petechiae. Heme/lymph: trace non-pitting edema b/l ankles. Objective: Vital Signs Temp Pulse Resp BP Pulse Ox 37 C 75 16 120/68 96 07/14/16 12:00 07/14/16 12:00 07/14/16 12:00 07/14/16 12:00 07/14/16 12:00 Microbiology 07/13/16 14:45 Gram Stain - Final Buttock - Swab Laboratory Results 07/13/16 05:07 07/13/16 05:07 07/13/16 07/14/16 07/15/16 05:59 05:59 05:59 Intake Total 4186 1100 Output Total 2400 1930 780 Balance 1786 -830 -780 PT 20.9 SEC (12.0-15.0) H 07/13/16 05:07 INR 1.79 (0.83-1.16) H 07/13/16 05:07 ICD10 Worksheet Patient Problems: Problems Problem Status Onset Fever Acute BPH (benign prostatic hypertrophy) with urinary retention Acute Dysplastic polyp of rectum Acute Hydronephrosis Acute Urine retention Acute
[2016-07-14] MEDS: WARFARIN SODIUM 4 MG TAB PO SCH (16:16)
[2016-07-14] MEDS: ACETAMINOPHEN 325 MG TAB PO PRN (17:30)
[2016-07-14] MEDS: ZOLPIDEM TARTRATE 5 MG TAB PO PRN (23:03)
[2016-07-15] MEDS: oxyCODONE IR 5 MG TAB PO PRN ×5 (03:27→21:56)
[2016-07-15 04:38] LABS: % IMMATURE GRANULYOCYTES 0.6 % (0.0-1.1); ABSOLUTE IMMATURE GRANULOCYTES 0.03 10^3/uL (0.00-0.10); ADD DIFF? NO; ADD MORPH? NO; ADD SCAN? NO; ATYPICAL LYMPHOCYTE FLAG 0 (0-99); FRAGMENT RBC FLAG 20 (0-99); HEMATOCRIT 30.8 % (40.0-51.0); HEMOGLOBIN 9.5 g/dL (13.7-17.5); LEFT SHIFT FLG 0 (0-99); LIPEMIA HEMOLYSIS FLAG 80 (0-99); MEAN CELL HEMOGLOBIN 24.4 pg (27.9-34.1); MEAN CELL HEMOGLOBIN CONCENTR. 30.8 g/dL (32.4-36.7); MEAN PLATELET VOLUME 8.9 fL (8.7-11.7); PLATELET CLUMPS FLAG 0 (0-99); PLATELET COUNT 382 10^3/uL (150-400); RED CELL DISTRIBUTION WIDTH 16.8 % (11.5-15.2)
[2016-07-15 04:48] LABS: ANION GAP 8 mEq/L (8-16); CALCIUM 8.5 mg/dL (8.5-10.4); CARBON DIOXIDE 25 mEq/l (22-31); CHLORIDE 107 mEq/L (97-110); CREATININE 0.8 mg/dL (0.7-1.3); GLOMERULAR FILTRATION RATE > 60; GLUCOSE 99 mg/dL (70-100); POTASSIUM 4.2 mEq/L (3.5-5.2); SODIUM 140 mEq/L (134-144)
[2016-07-15 05:06] LABS: INR 1.17 (0.83-1.16); PROTIME(PATIENT) 14.9 SEC (12.0-15.0)
[2016-07-15] MEDS: ERTAPENEM 1 GM in NS 100 ML IV SCH (08:46)
[2016-07-15] MEDS: ENOXAPARIN 100 MG/ML SYR SC SCH ×2 (08:47→21:56)
[2016-07-15] MEDS: CYANO/VITAMIN B12 1000 MCG TAB PO SCH (08:47)
[2016-07-15] MEDS: CHOLECALCIFEROL VIT D3 1,000 UNITS TAB PO SCH (08:47)
[2016-07-15] MEDS: ASCORBIC ACID 250 MG TAB PO SCH (08:47)
[2016-07-15] MEDS: FERROUS SULFATE 325 MG TAB PO SCH (08:50)
--- NOTE | 2016-07-15 09:45 | SOAPPROG ---
SOAP Progress Note Assessment/Plan: Assessment/Plan: 65 Y M c UC remote subtotal colectomy c ileostomy, now s/p APR for rectal CA in rectal stump, s/p hospital stay for urinary retention, now admitted with fevers, suspected UTI, and new small pelvic fluid collection. Followed with Drs. Tony, Donavan, and Hilda in outpatient setting. UTI, pelvic collection. Pelvic fluid collection drained. Drain is serous. Appreciate ID input. Could go home vs snf with his drain and f/u in outpatient setting once medically cleared. S: less nausea. less pain. no dysuria. eating ok. nervous about getting better due to recent setbacks O: alert, nad mmm no jaundice no wob abd soft wound cdi ostomy with light brown stool drain serous, clear 07/15/16 09:42 Objective: Vital Signs Temp Pulse Resp BP Pulse Ox 36.9 C 66 18 127/68 H 90 L 07/15/16 07:48 07/15/16 07:48 07/15/16 07:48 07/15/16 07:48 07/15/16 07:48 Microbiology 07/13/16 14:45 Gram Stain - Final Buttock - Swab 07/09/16 17:58 Blood Culture - Final Blood 07/09/16 17:54 Blood Culture - Final Blood Laboratory Results 07/15/16 04:16 07/15/16 04:16 07/14/16 07/15/16 07/16/16 05:59 05:59 05:59 Intake Total 1100 1300 Output Total 1930 1925 Balance -830 -625 PT 14.9 SEC (12.0-15.0) 07/15/16 04:16 INR 1.17 (0.83-1.16) H 07/15/16 04:16 ICD10 Worksheet Patient Problems: Problems Problem Status Onset Fever Acute BPH (benign prostatic hypertrophy) with urinary retention Acute Dysplastic polyp of rectum Acute Hydronephrosis Acute Urine retention Acute
[2016-07-15 10:38] LABS: % SATURATION 12 % (20-55); TOTAL IRON BINDING CAPACITY 260 ug/dL (260-490)
[2016-07-15] MEDS: ONDANSETRON DISINTEGRATING 4 MG TAB PO PRN (11:35)
[2016-07-15] MEDS ORDERED: ALTEPLASE 2 MG VIAL IVP PRN (12:16)
--- NOTE | 2016-07-15 12:16 | PCMIDPN ---
Assessment/Plan: Assessment/Plan: 1. Posterior buttock abscess: - 5 x9 cm -s/p IR drainage 07/13/16. GS with no org, cx rare E. coli. spoke with micro. they will run susceptibilites. -Currently on invanz. -=afebrile x 48 hours. -wbc overall improved. -blood cx ngtd - plan for picc line today. r/b discussed with patient. plan for tentative 7-10 days, with f/u Ct in the OP in one week to ensure abscess resolved and drain can be removed. . -Continue with IV antbiotics for now. -plan of care reviewed with patient - care coordinated with surgical team. Meds invanz 1g daily- 07/09/16 Subjective: Afebrile. Still with some pain/pressure in the buttock/abd area but overall better than two days ago. denies sob. drain in place which is serous. Objective: Vital Signs Temp Pulse Resp BP Pulse Ox 36.9 C 66 18 127/68 H 90 L 07/15/16 07:48 07/15/16 07:48 07/15/16 07:48 07/15/16 07:48 07/15/16 07:48 Microbiology 07/13/16 14:45 Gram Stain - Final Buttock - Swab 07/09/16 17:58 Blood Culture - Final Blood 07/09/16 17:54 Blood Culture - Final Blood Laboratory Results 07/15/16 04:16 07/15/16 04:16 07/14/16 07/15/16 07/16/16 05:59 05:59 05:59 Intake Total 1100 1300 Output Total 1930 1925 Balance -535 -810 - Physical Exam General Appearance: alert, no apparent distress Respiratory: lungs clear Cardiac/Chest: regular rate, rhythm Extremities: No swelling Abdomen: normal bowel sounds, soft, other (mildly tender, no guarding, ), No distended Back: other (buttock drain: serous only. some tenderness above and below drain on palpation. ) Skin: No erythema ICD10 Worksheet Patient Problems: Problems Problem Status Onset Fever Acute BPH (benign prostatic hypertrophy) with urinary retention Acute Dysplastic polyp of rectum Acute Hydronephrosis Acute Urine retention Acute
--- NOTE | 2016-07-15 16:41 | HOSPPROG ---
Hospitalist Progress Note Assessment/Plan: 65-year-old male with PMH ulcerative colitis, status post colectomy, PE, who was admitted for sepsis secondary to UTI. He has been complaining of perineal pain. Patient is new to me today. Patient is status post IR drainage of the perineal abscess of 30 cc of fluid and a persistent drainage. Cultures are pending and he is on Invanz and afebrile. Post the drainage the patient reports he is feeling improved. - Sepsis POA now resolved - posterior perineal abscess, status post drainage 05/13/16 with persistent drainage and the patient is feeling improved. - History of stage I rectal carcinoma status post stump resection. - Chronic pain with opioid dependence. His pain is improved now possibly due to the drainage of the abscess - history of ulcerative colitis, status post partial colectomy ; anemia; history of PE; BPH. - History of PE and on Coumadin anticoagulation. Coumadin restarted 2 days [employer] and INR is rising. He is on Lovenox bridging. -Code Status: Full code Disposition: Med surg; PICC line placed today and patient will be discharged on home antibiotics to be followed up with ID and surgery. Probable discharge on 07/16 Time: 45 minutes discussing options and his care with the patient And reviewing records. Subjective: reports he is feeling improved post the drainage. He has also discouraged and not sure he wants to go through radiation therapy for the rectal carcinoma. Denies chest pain shortness of breath nausea or vomiting. No abdominal pain Objective: Vital Signs Temp Pulse Resp BP Pulse Ox 36.9 C 71 18 114/73 92 07/15/16 15:54 07/15/16 15:54 07/15/16 15:54 07/15/16 15:54 07/15/16 15:54 Microbiology 07/13/16 14:45 Gram Stain - Final Buttock - Swab 07/09/16 17:58 Blood Culture - Final Blood 07/09/16 17:54 Blood Culture - Final Blood Laboratory Results 07/15/16 04:16 07/15/16 04:16 07/14/16 07/15/16 07/16/16 05:59 05:59 05:59 Intake Total 1100 1300 Output Total 1930 1925 200 Balance -830 -625 -200 PT 14.9 SEC (12.0-15.0) 07/15/16 04:16 INR 1.17 (0.83-1.16) H 07/15/16 04:16 - Time Spent With Patient Time Spent with Patient: greater than 35 minutes Time Spent with Patient: Greater than 35 minutes spent on this patients care, greater than 50% of time spent counseling, educating, and coordinating care regarding the above mentioned plan. - Pending Discharge Pending Discharge Within 24 Hours: Yes Pending Discharge Date: 07/16/16 Pending Discharge Time: 11:00 - Physical Exam Constitutional: no apparent distress Eyes: PERRL, anicteric sclera Ears, Nose, Mouth, Throat: moist mucous membranes, hearing normal Cardiovascular: regular rate and rhythym, no murmur, rub, or gallop Respiratory: no respiratory distress, no rales or rhonchi, clear to auscultation Gastrointestinal: normoactive bowel sounds, soft, non-tender abdomen, no palpable masses, other ( rectal region so is a drain which is performing well without surrounding erythema. The perirectal region his entirely tender without signs of active infection at this time.) Genitourinary: no bladder fullness Neurologic: AAOx3, CN II-XII Intact ICD10 Worksheet Patient Problems: Problems Problem Status Onset Fever Acute BPH (benign prostatic hypertrophy) with urinary retention Acute Dysplastic polyp of rectum Acute Hydronephrosis Acute Urine retention Acute
[2016-07-15] MEDS: WARFARIN SODIUM 4 MG TAB PO SCH (16:58)
[2016-07-15] MEDS: LORazepam 0.5 MG TAB PO PRN (21:56)
[2016-07-16] MEDS: ZOLPIDEM TARTRATE 5 MG TAB PO PRN (00:08)
[2016-07-16 08:40] VITALS: RESP 18; O2SAT 94
[2016-07-16] MEDS: ERTAPENEM 1 GM in NS 100 ML IV SCH (08:44)
[2016-07-16] MEDS: CHOLECALCIFEROL VIT D3 1,000 UNITS TAB PO SCH (08:44)
[2016-07-16] MEDS: ENOXAPARIN 100 MG/ML SYR SC SCH (08:44)
[2016-07-16] MEDS: FERROUS SULFATE 325 MG TAB PO SCH (08:45)
[2016-07-16] MEDS: CYANO/VITAMIN B12 1000 MCG TAB PO SCH (08:45)
[2016-07-16] MEDS: oxyCODONE IR 5 MG TAB PO PRN ×2 (09:05→13:02)
--- NOTE | 2016-07-16 10:54 | SOAPPROG ---
SOWILL Progress Note Assessment/Plan: Assessment/Plan: 65 Y M c UC remote subtotal colectomy c ileostomy, now s/p APR for rectal CA in rectal stump, s/p hospital stay for urinary retention, now admitted with fevers, suspected UTI, and new small pelvic fluid collection. Followed with Donavan Andres, and Hilda in outpatient setting. Seen and examined with Dr. Tony. PICC line in place. Will likely get CT next week before removing drain. D/w'ed ID yesterday who is in agreement with repeat imaging. Will contact our office to arrange for outpatient CT and subsequent f/ u for next week. S: no concerns this am. O: alert, nad mmm no jaundice no wob abd soft wound cdi ostomy with light brown stool drain serous, clear 07/16/16 10:50 Objective: Vital Signs Temp Pulse Resp BP Pulse Ox 36.9 C 79 18 122/63 H 94 07/16/16 08:00 07/16/16 08:00 07/16/16 08:00 07/16/16 08:00 07/16/16 08:00 Microbiology 07/13/16 14:45 Gram Stain - Final Buttock - Swab 07/09/16 17:58 Blood Culture - Final Blood 07/09/16 17:54 Blood Culture - Final Blood Laboratory Results 07/15/16 04:16 07/15/16 04:16 07/15/16 07/16/16 07/17/16 05:59 05:59 05:59 Intake Total 1300 2150 500 Output Total 1925 1260 300 Balance -625 890 200 PT 14.9 SEC (12.0-15.0) 07/15/16 04:16 INR 1.17 (0.83-1.16) H 07/15/16 04:16 ICD10 Worksheet Patient Problems: Problems Problem Status Onset Fever Acute BPH (benign prostatic hypertrophy) with urinary retention Acute Dysplastic polyp of rectum Acute Hydronephrosis Acute Urine retention Acute
--- NOTE | 2016-07-16 11:02 | PCMIDPN ---
Assessment/Plan: Assessment/Plan: 1. Posterior buttock abscess: - 5 x9 cm -s/p IR drainage 07/13/16. GS with no org, cx rare E. coli. spoke with micro. they will run susceptibilites. -Currently on invanz. -=afebrile x 48 hours. -wbc overall improved. -blood cx ngtd -s/p picc line discussed with patient. - plan for tentative 7-10 days, with f/u Ct in the OP in one week, on 07/23/16 to ensure abscess resolved and drain can be removed. . -Continue with IV antbiotics for now. interagency filled out -plan of care reviewed with patient - care coordinated with surgical team and hospitalist team -f/u in office on 07/24/16 at 10:45am. . Meds invanz 1g daily- 07/09/16 Subjective: afebrile. s/p picc line. feels wells x 2 days now. denies sob. abd pain, buttock pain stable. Objective: Vital Signs Temp Pulse Resp BP Pulse Ox 36.9 C 79 18 122/63 H 94 07/16/16 08:00 07/16/16 08:00 07/16/16 08:00 07/16/16 08:00 07/16/16 08:00 Microbiology 07/13/16 14:45 Gram Stain - Final Buttock - Swab 07/09/16 17:58 Blood Culture - Final Blood 07/09/16 17:54 Blood Culture - Final Blood Laboratory Results 07/15/16 04:16 07/15/16 04:16 07/15/16 07/16/16 07/17/16 05:59 05:59 05:59 Intake Total 1300 2150 500 Output Total 1925 1260 300 Balance -625 890 200 C-Reactive Protein 16.0 mg/L (<10.0) H 07/15/16 09:41 - Physical Exam General Appearance: alert, no apparent distress Respiratory: lungs clear Cardiac/Chest: regular rate, rhythm Extremities: No swelling Abdomen: normal bowel sounds, non-tender, soft, other (ilesotom), No distended Back: other (buttock left: drain noted with serous drainage) Skin: No rash ICD10 Worksheet Patient Problems: Problems Problem Status Onset Fever Acute BPH (benign prostatic hypertrophy) with urinary retention Acute Dysplastic polyp of rectum Acute Hydronephrosis Acute Urine retention Acute
--- NOTE | 2016-07-16 11:07 | PDIAF ---
- Diagnosis Diagnosis: left buttock/perineum abscess Code Status: Full Code - Medication Management Discharge Medications: Medications to Continue on Transfer Cholecalciferol Vit D3 [Vitamin D3 (*)] 1,000 units PO DAILY 05/07/16 [Last Taken 05/07/16] Cyanocobalamin [Vitamin B12 (*)] 1,000 mcg PO DAILY 05/07/16 [Last Taken ] Acetaminophen [Tylenol 325mg (*)] 650 mg PO Q4 PRN #0 tab 05/13/16 [Last Taken 07/09/16] HYDROcodone/APAP 10/325 [Albright 10/325 (*)] 1 tab PO Q4H PRN #0 tab 06/12/16 [ Last Taken Unknown] Simethicone [Mylicon] 80 mg PO Q6 PRN #0 tab.chew 06/12/16 [Last Taken Unknown] Ascorbic Acid [Vitamin C 250 mg (*)] 250 mg PO Q2D 07/09/16 [Last Taken Unknown] Ferrous Sulfate [Ferrous Sulf 325 MG (*)] 325 mg PO DAILY 07/09/16 [Last Taken Unknown] Ondansetron Odt [Zofran Odt 4 mg (*)] 4 mg PO Q4 PRN 07/09/16 [Last Taken Unknown] Warfarin Sodium [Coumadin] 12 mg PO DAILY@1600 07/09/16 [Last Taken 07/08/16] Zolpidem Tartrate [Ambien 5MG (*)] 5 - 10 mg PO HS PRN 07/09/16 [Last Taken Unknown] levOFLOXACIN [levAQUIN (*)] 500 mg PO DAILY 07/09/16 [Last Taken 07/09/16] Group Home Antibiotics: invanz 1g IV daily Clinical Coordinator Antibiotic Stop Date: 07/25/16 Discharge Medications: Refer to the Discharge Home Medication list for PRN reason. PICC Care - Routine: Yes - Labs/Radiology CBC Date: 07/22/16 CMP Date: 07/22/16 CRP Date: 07/22/16 Call or Fax Lab and Imaging Results to: Dr. [phone] - Follow Up Care Current Providers and Referrals: Oc Tony MD [Medical Doctor] - follow up in 1 week (will need a CT scan (abd/pel) and follow up clinic appointment. our office starting arrangements for CT. Please call for update/appointment.) Lyric Kumar MD [Primary Care Provider] - As per Instructions Mily Borges MD [Medical Doctor] - 07/24/16 10:45 am (f/u with Dr. Borges ( INFectious disease) at 10:45am. Check in time is at 10:30am. Thanks. )
--- NOTE | 2016-07-16 12:46 | PDIAF ---
- Diagnosis Diagnosis: left buttock/perineum abscess Code Status: Full Code - Medication Management Discharge Medications: Medications to Continue on Transfer Cholecalciferol Vit D3 [Vitamin D3 (*)] 1,000 units PO DAILY 05/07/16 [Last Taken 05/07/16] Cyanocobalamin [Vitamin B12 (*)] 1,000 mcg PO DAILY 05/07/16 [Last Taken ] Acetaminophen [Tylenol 325mg (*)] 650 mg PO Q4 PRN #0 tab 05/13/16 [Last Taken 07/09/16] HYDROcodone/APAP 10/325 [Gerald 10/325 (*)] 1 tab PO Q4H PRN #0 tab 06/12/16 [ Last Taken Unknown] Simethicone [Mylicon] 80 mg PO Q6 PRN #0 tab.chew 06/12/16 [Last Taken Unknown] Ascorbic Acid [Vitamin C 250 mg (*)] 250 mg PO Q2D 07/09/16 [Last Taken Unknown] Ferrous Sulfate [Ferrous Sulf 325 MG (*)] 325 mg PO DAILY 07/09/16 [Last Taken Unknown] Ondansetron Odt [Zofran Odt 4 mg (*)] 4 mg PO Q4 PRN 07/09/16 [Last Taken Unknown] Warfarin Sodium [Coumadin] 12 mg PO DAILY@1600 07/09/16 [Last Taken 07/08/16] Zolpidem Tartrate [Ambien 5MG (*)] 5 - 10 mg PO HS PRN 07/09/16 [Last Taken Unknown] Enoxaparin [Lovenox 100 MG (*)] 100 mg SC BID #10 syr 07/16/16 [Last Taken Unknown] Ertapenem [INVanz] 1 gm IV DAILY #10 vial 07/16/16 [Last Taken Unknown] Nurseryperson Antibiotics: invanz 1g IV daily Correction Antibiotic Stop Date: 07/25/16 Discharge Medications: Refer to the Discharge Home Medication list for PRN reason. PICC Care - Routine: Yes - Orders Services needed: Home Care, Registered Nurse, Certified [employer] Home Care Face to Face: I certify that this patient was under my care and that I had the required [id number] encounter meeting the encounter requirements on the discharge day. My findings support the fact that the patient is homebound as defined in CMS Chapter 7 Medicare Benefits Manual 30.1.1, The condition of the patient is such that there exists a normal inability to leave home and consequently, leaving home would require a considerable and taxing effort. Diet Recommendation: no restrictions on diet Diet Texture: Regular Texture Diet - Labs/Radiology CBC Date: 07/22/16 CMP Date: 07/22/16 CRP Date: 07/22/16 PT/INR Date: 07/19/16 Call or Fax Lab and Imaging Results to: Dr. [phone] Call or Fax INR results to Dr Lyric Kumar - Follow Up Care Current Providers and Referrals: Oc Tony MD [Medical Doctor] - follow up in 1 week (will need a CT scan (abd/pel) and follow up clinic appointment. our office starting arrangements for CT. Please call for update/appointment.) Lyric Kumar MD [Primary Care Provider] - As per Instructions Mily Borges MD [Medical Doctor] - 07/24/16 10:45 am (f/u with Dr. Borges ( INFectious disease) at 10:45am. Check in time is at 10:30am. Thanks. )
--- NOTE | 2016-07-16 13:46 | SOAPPROG ---
SOAP Progress Note Assessment/Plan: Assessment: DOING OK SP APR AFEBRILE BUT SOME PELVIC PAIN CT SHOWS SMALL COLLECTION IN PELVIS NEEDS DRAINAGE/ RISKS AND OPTIONS FULLY DISCUSSED WBC OK/ INT 1.8 Plan:CONSULT FOR CT DRAINAGE 07/13/16 11:15 07/14/16 08:39 comfortable/ afebrile/ minimal phong drainage/ eating well/ home soon 07/16/16 13:45 DOING WELL TODAY/ DRAINAGE DECREASED AND SEROUS/ HOME WHWN OK WITH ID/ DRAIN OUT IN OFFICE Objective: Vital Signs Temp Pulse Resp BP Pulse Ox 37.0 C 76 18 130/77 H 94 07/16/16 12:00 07/16/16 12:00 07/16/16 12:00 07/16/16 12:00 07/16/16 12:00 Microbiology 07/13/16 14:45 Gram Stain - Final Buttock - Swab 07/09/16 17:58 Blood Culture - Final Blood 07/09/16 17:54 Blood Culture - Final Blood Laboratory Results 07/15/16 04:16 07/15/16 04:16 07/15/16 07/16/16 07/17/16 05:59 05:59 05:59 Intake Total 1300 2150 500 Output Total 1925 1260 300 Balance -625 890 200 PT 14.9 SEC (12.0-15.0) 07/15/16 04:16 INR 1.17 (0.83-1.16) H 07/15/16 04:16 ICD10 Worksheet Patient Problems: Problems Problem Status Onset Fever Acute BPH (benign prostatic hypertrophy) with urinary retention Acute Dysplastic polyp of rectum Acute Hydronephrosis Acute Urine retention Acute
[2016-07-16 14:45] VITALS: BP 130/77; PULSE 76; TEMP 98.6
--- NOTE | 2016-07-17 07:25 | GDS ---
[f rep st] DISCHARGE SUMMARY KNOWN ACUTE DIAGNOSES ON THIS ADMISSION: 1. Acute perirectal abscess. 2. Chronic pain, opioid dependent. 3. History of stage I rectal carcinoma status post resection, remotely. 4. History of pulmonary embolism on Coumadin anticoagulation. He will be placed on Lovenox bridgin g. 5. History of ulcerative colitis status post remote partial colectomy. CHRONIC DIAGNOSES: 1. Pulmonary embolism approximately 3 months [employer]. 2. Benign prostatic hypertrophy. 3. Anemia. CONSULTATIONS: With Infectious Disease, Surgery. PROCEDURES: Under ultrasound guidance, a perirectal abscess was drained. Fluid was drained from th e buttocks region. HOSPITAL COURSE: A 65-year-old male presented with an acute fever of 103. He had a known history o f ulcerative colitis. Had previously undergone a stump resection. He was found by CT scan to have developed a perirectal abscess in the buttocks region. Under ultrasound guidance, this was drained by Interventional Radiology and a drain was left in place. He defervesced nicely on antibiotics. H is Coumadin was held for the procedure and he was placed on Lovenox bridging for anticoagulation. A PICC line was placed in preparation for the gentleman to receive outpatient IV Invanz. DISCHARGE MEDICATIONS: IV Invanz 1 g daily for the next 7-10 days, to be determined by Infectious D cristi, Lovenox 100 mg subcu b.i.d. for 5-7 days. Usual medications to continue, vitamin B12, 1000 mcg daily, vitamin D3, 1000 international units daily, Tylenol 650 mg q.4 hours p.r.n. pain, [place] 1 0/325 mg 1 tab q.4 hours p.r.n. pain, simethicone 80 mg p.r.n., Ambien 5-10 mg p.o. p.r.n., Zofran 4 mg p.o. q.4 hours p.r.n., ferrous sulfate 325 mg daily, vitamin C 250 mg q. 2 days, Coumadin 12 mg daily. Discontinued medications are Levaquin. PLAN: The gentleman will receive IV Invanz 1 g daily at the [facility] here at the hospital. He will have a PT/INR performed in 3 days with a followup on that result by Dr. Lyric Kumar. He will also follow up with Dr. Oc Tony regarding his perirectal abscess, and Mily Borges regardin g his IV medications. The followups with Dr. Borges and Dr. Tony will occur within about 1 week. TIME: This discharge required 45 minutes, greater than 50% to evp general counsel and coordinate care. /[id number]/MODL
== END 2016-07-16 17:15 | disposition home health service (06) | DRG 872 ==
LOC: F1N 19:02
PROVIDERS: ADMIT Internal Medicine; ATTEND Internal Medicine
PROC: 0D9Q30Z Drainage of Anus with Drainage Device, Percutaneous Approach (ICD-10-PCS; principal; 2016-07-13)
PROC: 02HV33Z Insertion of Infusion Device into Superior Vena Cava, Percutaneous Approach (ICD-10-PCS; 2016-07-15)
DX: A41.51 Sepsis due to Escherichia coli [E. coli] (principal); N39.0 Urinary tract infection, site not specified; K61.1 Rectal abscess; E11.9 Type 2 diabetes mellitus without complications; N40.1 Benign prostatic hyperplasia with lower urinary tract symptoms; R33.8 Other retention of urine; D53.9 Nutritional anemia, unspecified; G89.29 Other chronic pain; F11.20 Opioid dependence, uncomplicated; Z79.01 Long term (current) use of anticoagulants; Z86.711 Personal history of pulmonary embolism; Z85.048 Personal history of other malignant neoplasm of rectum, rectosigmoid junction, and anus; Z87.891 Personal history of nicotine dependence
CPT/HCPCS: 97161-GP; C1751; G8978-GP-CI; G8979-GP-CI; G8980-GP-CI; J1170; J1335; J1650; J1956; J2250; J2405; J3010; Q9967

== ENCOUNTER → 2016-07-18 | Outpatient (CLI) | payer OTHER | LOC: BHFA 10:00 | PROVIDERS: ATTEND Internal Medicine Cardiovascular Disease | DX: I26.99 Other pulmonary embolism without acute cor pulmonale (principal) ==

== ENCOUNTER → 2016-07-26 | Outpatient (CLI) | payer OTHER ==
[~2016-07-26] MED LIST: IOPAMIDOL (ISOVUE-300) 100 ML BTL ONE
== END ==
LOC: FIMAGING 08:55
PROVIDERS: ATTEND Internal Medicine Infectious Disease
DX: L02.91 Cutaneous abscess, unspecified (principal)
CPT/HCPCS: 72193; Q9967

== ENCOUNTER → 2016-08-19 | Outpatient (CLI) | payer OTHER | LOC: FIMAGING 11:03 | PROVIDERS: ATTEND Internal Medicine Infectious Disease | DX: L02.91 Cutaneous abscess, unspecified (principal) | CPT/HCPCS: 72193; Q9967 ==

== ENCOUNTER → 2016-08-22 | Day surgery (SDC) | payer OTHER | END | disposition home or self-care (01) | LOC: FIMAGING 13:39 | PROVIDERS: ATTEND Internal Medicine Infectious Disease | DX: L02.31 Cutaneous abscess of buttock (principal); L02.215 Cutaneous abscess of perineum ==

== ENCOUNTER → 2018-03-25 | Outpatient (CLI) | payer OTHER | LOC: FIMAGING 09:39 | PROVIDERS: ATTEND Internal Medicine Hematology & Oncology | DX: N17.9 Acute kidney failure, unspecified (principal); N13.30 Unspecified hydronephrosis; R33.9 Retention of urine, unspecified ==